=== PATIENT | male | born 1945 | race Caucasian/White ===

== ENCOUNTER 2018-07-30 10:27 | Emergency (ER) | payer MEDICARE, MEDICAID, SELFPAY ==
[2018-07-30] VITALS (28 sets, daily range): BP systolic 134–208; BP diastolic 81–114; PULSE 56–78; RESP 10–26; TEMP 36.6–36.8; O2SAT 94–99
--- NOTE | 2018-07-30 10:41 | DI.RAD_ITS ---
SYMPTOM/DIAGNOSIS: CHEST PAIN PA AND LATERAL CHEST: The heart is not enlarged. The lungs are grossly clear. No pleural effusion is seen. Rounded sclerotic lesion in humeral head appears to have been present on previous chest film of 01/2009. CONCLUSION: No evidence of acute disease.
--- NOTE | 2018-07-30 11:28 | NUR.NOTE ---
1115--took own morning meds per Brenda ABBOTT.Nursing Note:
[2018-07-30 11:39] LABS: Abs Immature Grans 0.02 k/cumm (0.0-0.09); Absolute Basophil Count 0.02 k/cumm (0.0-0.2); Absolute Eosinophil Count 0.04 k/cumm (0.0-0.7); Absolute Lymphocyte Count 0.96 k/cumm (1.2-3.4); Absolute Monocyte Count 0.58 k/cumm (0.11-0.7); Absolute Neutrophil Count 6.94 k/cumm (1.2-6.7); Basophils % 0.2; Eosinophils % 0.5; HCT 47.1 % (40.0-50.0); HGB 16.2 g/dL (13.5-17.5); Immature Grans % 0.2; Lymphocytes % 11.2; Mean Corp. HGB Concentration 34.4 g/dL (32.0-36.0); Mean Corpuscular Hemoglobin 31.6 pg (27.0-33.0); Mean Platelet Volume 10.2 fL (8.0-11.0); Monocytes % 6.8; Neutrophils % 81.1; Platelet Count 203 x1000/uL (130-400); RBC 5.12 m/cumm (4.50-6.00); RBC Distribution Width 13.8 % (11.8-14.1); White Blood Cell Count 8.56 k/cumm (4.4-10.8)
[2018-07-30 11:56] LABS: ALT 60 U/L (12-78); AST 25 U/L (15-37); Alkaline Phosphatase 107 U/L (46-116); Anion Gap 11.2 mmol/L (3-11); BUN 14 mg/dL (7-18); Bilirubin, Total 0.9 mg/dL (0.2-1.0); CO2 26.8 mmol/L (21.0-32.0); CREATININE 0.79 mg/dL (0.70-1.30); Calcium 9.7 mg/dL (8.5-10.1); Chloride 100 mmol/L (98-107); Glucose 73 mg/dL (70-100); Magnesium 1.5 mg/dL (1.8-2.4); NT-proBNP 2867 pg/mL; Sodium 138 mmol/L (136-145); Total Protein 8.2 g/dL (6.4-8.2)
[2018-07-30 11:59] LABS: Troponin I < 0.02 ng/mL (0.00-0.06)
[2018-07-30 12:05] LABS: D-Dimer 428 ng/mlFEU (<500)
[2018-07-30] MEDS: Magnesium Oxide 400 MG TAB PO (12:37)
--- NOTE | 2018-07-30 13:05 | DI.VRAD_ITS ---
EXAM: XR Chest, 2 Views EXAM DATE/TIME: 07/30/2018 10:42 AM CLINICAL HISTORY: 72 years old, male; Signs and symptoms; Other: Chest pain TECHNIQUE: Imaging protocol: XR of the chest, 2 views. COMPARISON: No relevant prior studies available. FINDINGS: Lungs: Lungs appear hyperexpanded. No focal consolidation. Pleural space: No visible pleural effusion. No pneumothorax. Heart/Mediastinum: No significant cardiomegaly. Vasculature: The aorta is unfolded. Bones/joints: Degenerative changes are present in the spine. 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 There may be a rounded sclerotic area in the proximal right humerus. IMPRESSION: No evidence of acute pulmonary finding or consolidation. Pulmonary hyperexpansion may indicate COPD. Dictated and Authenticated by: Narda Mota MD. Ordering:RM Frankel MD
[2018-07-30 14:21] LABS: Bilirubin Negative (Negative); Blood Trace-lysed (Negative); Clarity Clear; Glucose Negative (Negative); Ketones Negative (Negative); Leukocyte Esterase Negative (Negative); Nitrite Negative (Negative); Urobilinogen 0.2 EU/dL (Up TO 0.2)
[2018-07-30 14:32] LABS: Bacteria Negative HPF (Negative); C & S Indicated? No; Casts Negative LPF (Negative); Crystals Negative HPF (Negative); Epithelial Cells Rare HPF (Negative); Mucus Negative (Negative); RBC 0-2 (0-2); WBC Negative HPF (0-5)
[2018-07-30 15:11] LABS: Troponin I < 0.02 ng/mL (0.00-0.06)
--- NOTE | 2018-07-30 16:02 | ED.GENADUL_ITS ---
Discharge Plan Disposition Patient Disposition: HOME Condition: Improving Discharge Details Chief Complaint: Chest Pain Clinical Impression: Essential hypertension, Chest pain Primary Care Provider: Catalina Baptiste ED Provider: Jostin More Home Meds and New Rx's Prescriptions: Continued nitroglycerin 0.4 mg tablet, sublingual 0.4 mg Sublingual as directed PRN (Reason: chest pain) Qty: 25 RF: 0 Airborne (ascorbate sodium) 333-1.7 mg tablet,chewable 1 mg PO DAILY RF: 0 Imodium Multi-Symptom Relief 2-125 mg tablet 1 tab PO Q3H PRNRF: 0 bupropion HCl 300 mg tablet extended release 24 hr 300 mg PO DAILY Qty: 30 RF: 6 Lantus Solostar U-100 Insulin 100 unit/mL (3 mL) insulin pen 50 unit subcut DAILY Qty: 3 RF: 11 metoprolol succinate 50 mg tablet extended release 24 hr 50 mg PO DAILY Qty: 30 RF: 12 metoprolol succinate 25 mg tablet extended release 24 hr 25 mg PO DAILY MDD 75mg Qty: 30 RF: 11 OneTouch Ultra Test 1 EACH strip 1 ea Miscellaneous DAILY Qty: 100 RF: 11 lancets [OneTouch Delica Lancets] 1 EACH misc 1 ea Miscellaneous DAILY Qty: 100 RF: 11 pen needle, diabetic [Mini Ultra-Thin II] 31 gauge x 3/16 needle 1 ea Miscellaneous DAILY Qty: 1 RF: 11 cetirizine 10 mg tablet 10 mg PO DAILY Qty: 30 RF: 6 amlodipine 2.5 mg tablet 2.5 mg PO DAILY Qty: 30 RF: 12 aspirin 325 mg tablet 325 mg PO DAILY Qty: 30 RF: 12 atorvastatin 80 mg tablet 80 mg PO DAILY Qty: 30 RF: 11 metformin 500 mg tablet 1,000 mg PO BID Qty: 120 RF: 12 Discharge Instructions Instructions: Chest Pain (ED) Additional Instructions: Return immediately to the emergency department for any new or worsening symptoms, return of your chest pain and discomfort, any neurological symptoms, or any further concerns. Otherwise continue to take your daily medication as prescribed and follow-up with your primary care provider for reassessment. Referrals: Catalina Baptiste DO [Primary Care Provider] - 1 week Discharge Data Discharge Date/Time-TO BE ENTERED AT DEPARTURE: 07/30/18 16:14 Medical Decision Making Patient presenting to the emergency department for chief complaint of chest pain. Patient states that this started at 3 AM and he took 2 nitro at that time. Patient states he only now has chest pressure, dyspnea, and some feelings of being off balance. He does state new diagnosis of atrial fibrillation by [facility] care provider which those records were reviewed. Patient is only on aspirin for blood thinner. Physical exam shows irregular heart rate otherwise no murmurs rubs or clicks, clear lung sounds, normal neurological exam with negative Belle-Hallpike and hints exam. Plan to check labs and EKG along with chest x-ray. Patient was refusing any IV access and stated he was okay with blood draw but he was adamantly opposed to having IV started in the emergency department. Did inform patient that given A. fib and complaint of shortness of breath chest pain that I could perform a d-dimer but if elevated I would need to do a CTA of the chest. Patient states that he wants to discuss this once we get the initial lab work but wants to be conservative in any management. Patient is hypertensive but has not taken his morning medications so morning meds were given. Fingerstick glucose was 68 and patient states that he has not had breakfast so he was given food. Initial EKG reviewed with Dr. Leticia Calhoun and shows rate of 73, atrial fibrillation, T wave inversion is noted but has been seen on previous EKGs. There is ST abnormality in V4 V5 and V6 that is nondiagnostic but no signs of acute ST elevated [place]. Review of initial labs showed negative troponin, within acceptable limits of d- dimer, nondiagnostic CBC, CMP showing magnesium of 1.5 which was orally repleted and elevated BNP but patient has history of CHF no CHF symptoms. Chest x-ray was negative for any acute findings. Patient was agreeable to 3-hour troponin but again refused any IV access and states that his symptoms are better and improving. 3-hour troponin was reviewed and also negative and EKG performed and shows atrial fibrillation with rate of 65, continued T wave inversion in aVR aVL but ST abnormality that was previously seen in V4 V5 V6 is no longer present. Given patient's cardiac history of NH with stents, age, complaint of chest pain, and new diagnosis of atrial fib. Did discuss with patient admission to the hospital for further observation and possible stress testing and echo. Patient after long discussion stated he did not want to stay in the hospital and even if he had a stroke or heart attack he did not want anything done to treat his symptoms. Patient is DNR/DNI and this discussion of the patient seems similar to what primary care provider had with placing patient on blood thinners for his atrial fibrillation. Close return precautions were discussed and patient placed upon care management list for arrangement of follow-up appointment. Of notation is medical staff coordinator informed me that patient was urinating frequently and urinalysis was performed and shows elevated proteins and trace blood but otherwise nondiagnostic. medical staff coordinator did bladder scan and showed significant retention of fluid but patient refused catheter. Patient was encouraged to return for any inability to pee, abdominal pain, or further concerns otherwise to follow-up with primary care and inform them of his frequent urinations. With reassessment prior to discharge patient again stated that his chest pain symptoms had fully resolved and that he again wanted to go home. I feel that this is reasonable given that patient wants minimum interventions for any medical problems anyway but he was informed that he may always return for further treatment or evaluation as needed. After discussion of diagnosis and plan of care patient has no further needs, questions, or concerns and states clear understanding to return to the emergency department for any worsening symptoms. HPI General Mode of arrival: ambulatory . Date/Time Provider Initiated Documentation: 07/30/18 10:38 . Limitations to Documentation: no limitations . Information obtained by: patient, RN notes reviewed and old records reviewed . History of Present Illness 72 year old M presents to the emergency department with the chief complaint of chest pain, shortness of breath, dizzy, described as moderate and similar to prior episodes, with intensity rated at 5. Quality is described as other (pressure), and is localized to the chest. Patient reports no radiation. Patient started experiencing this hour(s) (7) and it has been intermittent. No exacerbating factors reported . Patient notes no other symptoms.. Patient did receive the following treatments prior to arrival, other (2 nitro at 3 AM) Related Data Home Medications Medication Instructions Recorded Confirmed CerelinkTouch Ultra Test #100 strip 04/22/16 07/22/18 lancets [OneTouch Delica Lancets] #100 ea 02/16/17 07/22/18 nitroglycerin 0.4 mg sublingual 0.4 mg SUBLINGUAL as directed PRN 01/21/18 07/30/18 tablet #25 tab pen needle, diabetic 31 gauge x #1 box 05/17/18 07/22/1805/14 cetirizine 10 mg tablet 10 mg PO DAILY #30 tab-cap 05/19/18 07/30/18 amlodipine 2.5 mg tablet 2.5 mg PO DAILY #30 tab-cap 06/22/18 07/30/18 aspirin 325 mg tablet 325 mg PO DAILY #30 tab 06/23/18 07/30/18 atorvastatin 80 mg tablet 80 mg PO DAILY #30 tab-cap 06/23/18 07/30/18 metformin 500 mg tablet 1,000 mg PO BID #120 tab 06/23/18 07/30/18 bupropion HCl XL 300 mg 24 hr 300 mg PO DAILY #30 tab-cap 07/22/18 07/30/18 tablet, extended release insulin glargine (U-100) 100 50 unit SUBCUT DAILY #3 pen 07/22/18 07/30/18 unit/mL (3 mL) subcutaneous pen loperamide-simethicone 2 mg-125 mg 1 tab PO Q3H PRN 07/22/18 07/30/18 tablet mv-min-vit C-ascorb 1 mg PO DAILY tab 07/22/18 07/30/18 Om-Flh-Qki-herb #124 333 mg-1.7 mg chewable tablet metoprolol succinate ER 25 mg 25 mg PO DAILY #30 tab MDD 75mg 07/23/18 07/30/18 tablet,extended release 24 hr metoprolol succinate ER 50 mg 50 mg PO DAILY #30 tab 07/23/18 07/30/18 tablet,extended release 24 hr Previous Rx's Medication Instructions Recorded lancets [OneTouch Delica Lancets] #100 ea 02/16/17 nitroglycerin 0.4 mg sublingual 0.4 mg SUBLINGUAL as directed PRN 01/21/18 tablet #25 tab pen needle, diabetic 31 gauge x #1 box 05/17/1805/14 cetirizine 10 mg tablet 10 mg PO DAILY #30 tab-cap 05/19/18 amlodipine 2.5 mg tablet 2.5 mg PO DAILY #30 tab-cap 06/22/18 aspirin 325 mg tablet 325 mg PO DAILY #30 tab 06/23/18 atorvastatin 80 mg tablet 80 mg PO DAILY #30 tab-cap 06/23/18 metformin 500 mg tablet 1,000 mg PO BID #120 tab 06/23/18 bupropion HCl XL 300 mg 24 hr 300 mg PO DAILY #30 tab-cap 07/22/18 tablet, extended release insulin glargine (U-100) 100 50 unit SUBCUT DAILY #3 pen 07/22/18 unit/mL (3 mL) subcutaneous pen metoprolol succinate ER 25 mg 25 mg PO DAILY #30 tab MDD 75mg 07/23/18 tablet,extended release 24 hr metoprolol succinate ER 50 mg 50 mg PO DAILY #30 tab 07/23/18 tablet,extended release 24 hr Allergies Allergy/AdvReac Type Severity Reaction Status Date / Time fluoxetine AdvReac Intermediate Intolerant Verified 07/30/18 10:57 amitriptyline AdvReac Mild Ineffective Verified 07/30/18 10:57 General Stated Complaint: Chest Pain [place]: 2 Review of Systems Constitutional Denies chills, Denies fever(s) and Denies malaise Cardiovascular Reports as per HPI, Reports chest pain, Denies chest pain with activity, Denies syncope, Denies rapid heart rate, Denies irregular heart rhythm, Denies claudication, Denies palpitations and Denies dyspnea Respiratory Denies cough, Denies hemoptysis and Denies dyspnea Gastrointestinal Denies abdominal pain, Denies nausea and Denies vomiting Neurologic Denies syncope Psychiatric Denies anxiety Endocrine Denies cold intolerance, Denies heat intolerance and Denies palpitations [facility] Medical History Atrial fibrillation (Chronic) Angina pectoris (03/11/09) Congestive heart failure (12/30/01) DNI (do not intubate) (03/28/08) DNR (do not resuscitate) (03/28/08) Diabetes mellitus (07/11/05) Disability examination (08/30/07) Hyperlipidemia (07/11/05) Hypertension (04/29/01) Hypomagnesemia (12/26/07) Myocardial infarct (04/29/01) Obesity Polycythemia (03/28/08) Surgical History Repair of inguinal hernia (12/24/09) Stent placement (04/29/01) Family History Mother Stroke Father Dementia Heart disease Brother Substance abuse Brother No problems noted. Other Diabetes Personal history of malignant neoplasm Social History Smoking/Tobacco Use Status: Never Alcohol Intake: never Drug use: Never Substance use type: does not use Do you feel safe at home: Yes Do you feel safe in your relationship?: Yes Exam Const General: cooperative, healthy appearing, comfortable, no acute distress, not diaphoretic and not ill appearing Nutritional Appearance: average body habitus Orientation: alert, awake and oriented x3 Limitations: mental status not altered Neck Neck: normal visual inspection, full ROM, trachea midline, supple and no anterior neck swelling Thyroid: thyroid normal Carotids: normal carotid upstroke and no bruits Chest Chest: normal inspection of the chest Resp Effort & Inspection: normal respiratory effort and able to speak in complete sentences Auscultation: clear to auscultation bilaterally Cardio Jugular venous pressure: no JVD Palpation: normal PMI Rate: regular rate Rhythm: abnormal rhythm irregularly irregular Heart Sounds: S1 normal, S2 normal, no click, no gallops, no murmurs and no rubs Bruits: no abdominal aortic bruits and no carotid bruits Pulses: radial pulses present bilaterally 2+ GI Inspection: normal to inspection Palpation: soft, no aortic enlargement, no pulsatile masses and nontender Auscultation: normal bowel sounds Skin General skin exam: no rashes or lesions noted Neuro General: alert, awake, oriented x3, gait normal, tone normal, moves all extr emities, normal light touch, pain and propioception, no meningeal signs, no focal motor deficits, CN's II-XI intact bilaterally, not confused, [place] Hallpike (Negative) and other (Negative hints exam) Cognition: normal cognition Speech: speech normal Motor: no pronator drift Course Vital Signs Respiratory Rate 26 H 07/30/18 10:44 Temperature 36.8 C 07/30/18 10:55 Pulse 64 07/30/18 14:32 Pulse 56 L 07/30/18 15:00 Respiratory Rate 17 07/30/18 15:00 Respiratory Effort Non-Labored 07/30/18 11:32 Respiratory Depth Normal 07/30/18 11:32 Respiratory Pattern Normal 07/30/18 11:32 Blood Pressure 170/81 H 07/30/18 14:32 Blood Pressure Mean 99 07/30/18 14:32 Blood Pressure Position Sitting 07/30/18 10:55 Pulse Oximetry 95 07/30/18 15:00 Oxygen Delivery Method Room Air 07/30/18 10:55 Oxygen Flow Rate 0 07/30/18 10:55 Pain Level 0 07/30/18 10:55 Lab/Test Results Lab/Test Results: Laboratory Tests Range/Units 07/30/18 07/30/18 07/30/18 11:30 11:30 11:30 WBC (4.4-10.8) k/cumm 8.56 RBC (4.50-6.00) m/cumm 5.12 Hgb (13.5-17.5) g/dL 16.2 Hct (40.0-50.0) % 47.1 MCV (80-95) fL 92.0 MCH (27.0-33.0) pg 31.6 MCHC (32.0-36.0) g/dL 34.4 RDW (11.8-14.1) % 13.8 Plt Count (130-400) x1000/uL 203 MPV (8.0-11.0) fL 10.2 Immature Gran % 0.2 Neutrophils % 81.1 Lymphocytes % 11.2 Monocytes % 6.8 Eosinophils % 0.5 Basophils % 0.2 Absolute Neutrophils (1.2-6.7) k/cumm 6.94 H Absolute Lymphocytes (1.2-3.4) k/cumm 0.96 L Absolute Monocytes (0.11-0.7) k/cumm 0.58 Absolute Eosinophils (0.0-0.7) k/cumm 0.04 Absolute Basophils (0.0-0.2) k/cumm 0.02 D-Dimer (<500) ng/mlFEU 428 Sodium (136-145) mmol/L 138 Potassium (3.5-5.1) mmol/L 4.0 Chloride (98-107) mmol/L 100 Carbon Dioxide (21.0-32.0) mmol/L 26.8 Anion Gap (3-11) mmol/L 11.2 H BUN (7-18) mg/dL 14 Creatinine (0.70-1.30) mg/dL 0.79 Estimated GFR/1.73 m2 (mL/min/1.73m2) >= 60.00 Glucose (70-100) mg/dL 73 Calcium (8.5-10.1) mg/dL 9.7 Magnesium (1.8-2.4) mg/dL 1.5 L Total Bilirubin (0.2-1.0) mg/dL 0.9 AST (15-37) U/L 25 ALT (12-78) U/L 60 Alkaline Phosphatase (46-116) U/L 107 Troponin I (0.00-0.06) ng/mL < 0.02 NT-Pro-B Natriuret Pep ( - 299) pg/mL 2867 H Total Protein (6.4-8.2) g/dL 8.2 Albumin (3.4-5.0) g/dL 4.0 Urine Color (Yellow) Urine Clarity Urine pH (5-8) Ur Specific [place] (1.005-1.025) Urine Protein (Negative) mg/dL Urine Ketones (Negative) mg/dL Urine Blood (Negative) Urine Nitrite (Negative) Urine Bilirubin (Negative) Urine Urobilinogen (Up TO 0.2) EU/dL Ur Leukocyte Esterase (Negative) Urine RBC (0-2) Urine WBC (0-5) HPF Ur Epithelial Cells (Negative) HPF Urine Crystals (Negative) HPF Urine Bacteria (Negative) HPF Urine Casts (Negative) LPF Urine Mucus (Negative) Ur Culture Indicated? Urine Glucose (Negative) mg/dL Range/Units 07/30/18 07/30/18 14:15 14:45 WBC (4.4-10.8) k/cumm RBC (4.50-6.00) m/cumm Hgb (13.5-17.5) g/dL Hct (40.0-50.0) % MCV (80-95) fL MCH (27.0-33.0) pg MCHC (32.0-36.0) g/dL RDW (11.8-14.1) % Plt Count (130-400) x1000/uL MPV (8.0-11.0) fL Immature Gran % Neutrophils % Lymphocytes % Monocytes % Eosinophils % Basophils % Absolute Neutrophils (1.2-6.7) k/cumm Absolute Lymphocytes (1.2-3.4) k/cumm Absolute Monocytes (0.11-0.7) k/cumm Absolute Eosinophils (0.0-0.7) k/cumm Absolute Basophils (0.0-0.2) k/cumm D-Dimer (<500) ng/mlFEU Sodium (136-145) mmol/L Potassium (3.5-5.1) mmol/L Chloride (98-107) mmol/L Carbon Dioxide (21.0-32.0) mmol/L Anion Gap (3-11) mmol/L BUN (7-18) mg/dL Creatinine (0.70-1.30) mg/dL Estimated GFR/1.73 m2 (mL/min/1.73m2) Glucose (70-100) mg/dL Calcium (8.5-10.1) mg/dL Magnesium (1.8-2.4) mg/dL Total Bilirubin (0.2-1.0) mg/dL AST (15-37) U/L ALT (12-78) U/L Alkaline Phosphatase (46-116) U/L Troponin I (0.00-0.06) ng/mL < 0.02 NT-Pro-B Natriuret Pep ( - 299) pg/mL Total Protein (6.4-8.2) g/dL Albumin (3.4-5.0) g/dL Urine Color (Yellow) Yellow Urine Clarity Clear Urine pH (5-8) 5.0 Ur Specific [place] (1.005-1.025) 1.010 Urine Protein (Negative) mg/dL 100 H Urine Ketones (Negative) mg/dL Negative Urine Blood (Negative) Trace-lysed H Urine Nitrite (Negative) Negative Urine Bilirubin (Negative) Negative Urine Urobilinogen (Up TO 0.2) EU/dL 0.2 Ur Leukocyte Esterase (Negative) Negative Urine RBC (0-2) 0-2 Urine WBC (0-5) HPF Negative Ur Epithelial Cells (Negative) HPF Rare Urine Crystals (Negative) HPF Negative Urine Bacteria (Negative) HPF Negative Urine Casts (Negative) LPF Negative Urine Mucus (Negative) Negative Ur Culture Indicated? No Urine Glucose (Negative) mg/dL Negative
--- NOTE | 2018-07-30 16:20 | NUR.NOTE ---
Nursing Note: Voiding in small amts---I don't want a catheter unless I can't go at all--states will come back if very painful /unable to pass any urine.
--- NOTE | 2018-08-02 09:05 | PDOC.ERCMPRO ---
Care Management Progress Note 08/02-Tereso [employer]ESSIONAL requested assistance with a PCP ([facility]) f/u within one week for chest pain. Referral faxed to [facility] this am.
--- NOTE | 2018-08-02 09:10 | CMPROGNOTE_ITS ---
Care Management Progress Note 08/02-Tereso PLUCK TRIMMER requested assistance with a PCP ([facility]) f/u within one week for chest pain. Referral faxed to [facility] this am.
== END 2018-07-30 16:14 | disposition home or self-care (01) ==
PROVIDERS: Emergency Provider Nurse Practitioner Family; PCP Student in an Organized Health Care Education/Training Program
DX: R07.9 Chest pain, unspecified (principal); I10 Essential (primary) hypertension; I48.91 Unspecified atrial fibrillation; E11.9 Type 2 diabetes mellitus without complications; Z79.4 Long term (current) use of insulin
CPT/HCPCS: 36415; 80053; 93005; 96372; 99285; 71046; 81003; 81015; 83735; 83880; 84484; 85025; 85379; 93010

== ENCOUNTER 2018-07-31 08:13 | Emergency (ER) | payer MEDICARE, MEDICAID, SELFPAY ==
[2018-07-31 08:21] VITALS: BP 153/84; PULSE 87; RESP 16; TEMP 37.1; O2SAT 96
--- NOTE | 2018-07-31 08:45 | W.ED.GENAD ---
Discharge Plan Disposition Patient Disposition: HOME Condition: Stable Discharge Details Chief Complaint: Urinary Clinical Impression: Acute urinary retention Primary Care Provider: Catalina Baptiste ED Provider: Jostin More Home Meds and New Rx's Prescriptions: Continued nitroglycerin 0.4 mg tablet, sublingual 0.4 mg Sublingual as directed PRN (Reason: chest pain) Qty: 25 RF: 0 Airborne (ascorbate sodium) 333-1.7 mg tablet,chewable 1 mg PO DAILY RF: 0 Imodium Multi-Symptom Relief 2-125 mg tablet 1 tab PO Q3H PRNRF: 0 bupropion HCl 300 mg tablet extended release 24 hr 300 mg PO DAILY Qty: 30 RF: 6 Lantus Solostar U-100 Insulin 100 unit/mL (3 mL) insulin pen 50 unit subcut DAILY Qty: 3 RF: 11 metoprolol succinate 50 mg tablet extended release 24 hr 50 mg PO DAILY Qty: 30 RF: 12 metoprolol succinate 25 mg tablet extended release 24 hr 25 mg PO DAILY MDD 75mg Qty: 30 RF: 11 OneTouch Ultra Test 1 EACH strip 1 ea Miscellaneous DAILY Qty: 100 RF: 11 lancets [OneTouch Delica Lancets] 1 EACH misc 1 ea Miscellaneous DAILY Qty: 100 RF: 11 pen needle, diabetic [Mini Ultra-Thin II] 31 gauge x 3/16 needle 1 ea Miscellaneous DAILY Qty: 1 RF: 11 cetirizine 10 mg tablet 10 mg PO DAILY Qty: 30 RF: 6 amlodipine 2.5 mg tablet 2.5 mg PO DAILY Qty: 30 RF: 12 aspirin 325 mg tablet 325 mg PO DAILY Qty: 30 RF: 12 atorvastatin 80 mg tablet 80 mg PO DAILY Qty: 30 RF: 11 metformin 500 mg tablet 1,000 mg PO BID Qty: 120 RF: 12 Discharge Instructions Instructions: Urinary Retention in Men (ED), Parr Catheter Placement and Care (ED), Urinary Leg Bag (GEN) Additional Instructions: Return to the emergency department for any fever chills, new or worsening symptoms. Otherwise home health will meet you this morning at your home to go over home care and assist with catheter. You should call Dr. Raya's office tomorrow for arrangement of urology appointment. Referrals: Brian Raya MD [ [facility] STAFF PHYSICIAN] - (Call the office tomorrow for arrangement of follow-up and catheter removal) Discharge Data Discharge Date/Time-TO BE ENTERED AT DEPARTURE: 07/31/18 11:20 Medical Decision Making Patient presenting the emergency department for chief complaint of urinary frequency and bladder pain. Patient was seen in the emergency department yesterday and noted to have 800 mL's on bladder scan but refused Parr catheter and admission at that time. Patient was having urinary frequency during emergency department visit but wanted to go home. Patient states that this continued with even less urine output throughout the night and then started having some bladder pain and spasms . Patient denies any fever chills, flank pain, nausea vomiting. Physical exam shows no CVA tenderness, suprapubic pain and discomfort otherwise unremarkable exam. After lengthy and thorough discussion with patient he agreed to bladder scanning and Parr catheter being placed due to over thousand mL's located in the bladder. Parr catheter drained almost 1100 mL's of clear urine which were sent for urinalysis and showed no signs of urinary tract infection. Patient extremely hesitant to going home with Parr catheter but after thorough and lengthy discussion as well as involving care management to ensure home health services would be available to help patient patient was discharged home with Parr bag. Patient to follow-up with urology for reassessment and removal of catheter and any further treatment as needed. Return precautions were discussed HPI General Mode of arrival: ambulatory. Date/Time Provider Initiated Documentation: 07/31/18 08:32. Limitations to Documentation: no limitations. Information obtained by: patient and RN notes reviewed. History of Present Illness 72 year old M presents to the emergency department with the chief complaint of Urinary frequency, described as moderate, with intensity rated at 4. Quality is described as other (Bladder pressure), Patient started experiencing this day(s) (1) and it has been constant. No relieving factors improve symptom(s), Patient notes no other symptoms.. Patient did receive the following treatments prior to arrival, none Related Data Home Medications Medication Instructions Recorded Confirmed SendRRTouch Ultra Test #100 strip 04/22/16 07/22/18 lancets [OneTouch Delica Lancets] #100 ea 02/16/17 07/22/18 nitroglycerin 0.4 mg sublingual 0.4 mg SUBLINGUAL as directed PRN 01/21/18 07/31/18 tablet #25 tab pen needle, diabetic 31 gauge x #1 box 05/17/18 07/22/1805/14 cetirizine 10 mg tablet 10 mg PO DAILY #30 tab-cap 05/19/18 07/31/18 amlodipine 2.5 mg tablet 2.5 mg PO DAILY #30 tab-cap 06/22/18 07/31/18 aspirin 325 mg tablet 325 mg PO DAILY #30 tab 06/23/18 07/31/18 atorvastatin 80 mg tablet 80 mg PO DAILY #30 tab-cap 06/23/18 07/31/18 metformin 500 mg tablet 1,000 mg PO BID #120 tab 06/23/18 07/31/18 bupropion HCl XL 300 mg 24 hr 300 mg PO DAILY #30 tab-cap 07/22/18 07/31/18 tablet, extended release insulin glargine (U-100) 100 50 unit SUBCUT DAILY #3 pen 07/22/18 07/31/18 unit/mL (3 mL) subcutaneous pen loperamide-simethicone 2 mg-125 mg 1 tab PO Q3H PRN 07/22/18 07/31/18 tablet mv-min-vit C-ascorb 1 mg PO DAILY tab 07/22/18 07/31/18 Xl-Ebm-Hxy-herb #124 333 mg-1.7 mg chewable tablet metoprolol succinate ER 25 mg 25 mg PO DAILY #30 tab MDD 75mg 07/23/18 07/31/18 tablet,extended release 24 hr metoprolol succinate ER 50 mg 50 mg PO DAILY #30 tab 07/23/18 07/31/18 tablet,extended release 24 hr Previous Rx's Medication Instructions Recorded lancets [OneTouch Delica Lancets] #100 ea 02/16/17 nitroglycerin 0.4 mg sublingual 0.4 mg SUBLINGUAL as directed PRN 01/21/18 tablet #25 tab pen needle, diabetic 31 gauge x #1 box 05/17/1805/14 cetirizine 10 mg tablet 10 mg PO DAILY #30 tab-cap 05/19/18 amlodipine 2.5 mg tablet 2.5 mg PO DAILY #30 tab-cap 06/22/18 aspirin 325 mg tablet 325 mg PO DAILY #30 tab 06/23/18 atorvastatin 80 mg tablet 80 mg PO DAILY #30 tab-cap 06/23/18 metformin 500 mg tablet 1,000 mg PO BID #120 tab 06/23/18 bupropion HCl XL 300 mg 24 hr 300 mg PO DAILY #30 tab-cap 07/22/18 tablet, extended release insulin glargine (U-100) 100 50 unit SUBCUT DAILY #3 pen 07/22/18 unit/mL (3 mL) subcutaneous pen metoprolol succinate ER 25 mg 25 mg PO DAILY #30 tab MDD 75mg 07/23/18 tablet,extended release 24 hr metoprolol succinate ER 50 mg 50 mg PO DAILY #30 tab 07/23/18 tablet,extended release 24 hr Allergies Allergy/AdvReac Type Severity Reaction Status Date / Time fluoxetine AdvReac Intermediate Intolerant Verified 07/31/18 08:24 amitriptyline AdvReac Mild Ineffective Verified 07/31/18 08:24 General Stated Complaint: Urinary CARR[place]: 3 Review of Systems Constitutional Denies body ache(s), Denies chills, Denies fever(s), Denies malaise and Denies weakness Cardiovascular Denies chest pain Respiratory Reports system reviewed and no additional complaints, except as docu Gastrointestinal Denies abdominal pain, Denies nausea and Denies vomiting Genitourinary Reports as per HPI, Denies hematuria, Reports difficulty urinating, Reports dysuria, Reports urinary urgency and Reports other (Change in urine color) Neurologic Denies confusion and Denies weakness Psychiatric Denies confusion [facility] Social History Smoking/Tobacco Use Status: Never Alcohol Intake: never Drug use: Never Substance use type: does not use Do you feel safe at home: Yes Do you feel safe in your relationship?: Yes Exam Const General: cooperative and no acute distress Orientation: alert, awake and oriented x3 Resp Effort & Inspection: normal respiratory effort and able to speak in complete sentences Auscultation: clear to auscultation bilaterally Cardio Rate: regular rate Rhythm: regular rhythm Heart Sounds: S1 normal and S2 normal GI Palpation: tender suprapubicly Back/Spine/Pelvis Back: no CVA tenderness Neuro General: alert, awake and oriented x3 Extrem General: normal capillary refill Course Vital Signs Temperature 37.1 C 07/31/18 08:21 Pulse 87 07/31/18 08:21 Respiratory Rate 16 07/31/18 08:21 Blood Pressure 153/84 H 06/02/19 08:21 Pulse Oximetry 96 07/31/18 08:21 Temperature 37.1 C 07/31/18 08:21 Temperature Source Skin 07/31/18 08:21 Pulse 87 07/31/18 08:21 Respiratory Rate 16 07/31/18 08:21 Respiratory Effort Non-Labored 07/31/18 08:21 Blood Pressure 153/84 H 07/31/18 08:21 Blood Pressure Position Sitting 07/31/18 08:21 Pulse Oximetry 96 07/31/18 08:21 Oxygen Delivery Method Room Air 07/31/18 08:21 Oxygen Flow Rate 0 07/31/18 08:21 Pain Level 7 07/31/18 08:21
--- NOTE | 2018-07-31 08:48 | ED.GENADUL_ITS ---
Discharge Plan Disposition Patient Disposition: HOME Condition: Stable Discharge Details Chief Complaint: Urinary Clinical Impression: Acute urinary retention Primary Care Provider: Catalina Baptiste ED Provider: Jostin More Home Meds and New Rx's Prescriptions: Continued nitroglycerin 0.4 mg tablet, sublingual 0.4 mg Sublingual as directed PRN (Reason: chest pain) Qty: 25 RF: 0 Airborne (ascorbate sodium) 333-1.7 mg tablet,chewable 1 mg PO DAILY RF: 0 Imodium Multi-Symptom Relief 2-125 mg tablet 1 tab PO Q3H PRNRF: 0 bupropion HCl 300 mg tablet extended release 24 hr 300 mg PO DAILY Qty: 30 RF: 6 Lantus Solostar U-100 Insulin 100 unit/mL (3 mL) insulin pen 50 unit subcut DAILY Qty: 3 RF: 11 metoprolol succinate 50 mg tablet extended release 24 hr 50 mg PO DAILY Qty: 30 RF: 12 metoprolol succinate 25 mg tablet extended release 24 hr 25 mg PO DAILY MDD 75mg Qty: 30 RF: 11 OneTouch Ultra Test 1 EACH strip 1 ea Miscellaneous DAILY Qty: 100 RF: 11 lancets [OneTouch Delica Lancets] 1 EACH misc 1 ea Miscellaneous DAILY Qty: 100 RF: 11 pen needle, diabetic [Mini Ultra-Thin II] 31 gauge x 3/16 needle 1 ea Miscellaneous DAILY Qty: 1 RF: 11 cetirizine 10 mg tablet 10 mg PO DAILY Qty: 30 RF: 6 amlodipine 2.5 mg tablet 2.5 mg PO DAILY Qty: 30 RF: 12 aspirin 325 mg tablet 325 mg PO DAILY Qty: 30 RF: 12 atorvastatin 80 mg tablet 80 mg PO DAILY Qty: 30 RF: 11 metformin 500 mg tablet 1,000 mg PO BID Qty: 120 RF: 12 Discharge Instructions Instructions: Urinary Retention in Men (ED), Parr Catheter Placement and Care (ED), Urinary Leg Bag (GEN) Additional Instructions: Return to the emergency department for any fever chills, new or worsening symptoms. Otherwise home health will meet you this morning at your home to go over home care and assist with catheter. You should call Dr. Raya's office tomorrow for arrangement of urology appointment. Referrals: Brian Raya MD [ [facility] STAFF PHYSICIAN] - (Call the office tomorrow for arrangement of follow-up and catheter removal) Discharge Data Discharge Date/Time-TO BE ENTERED AT DEPARTURE: 07/31/18 11:20 Medical Decision Making Patient presenting the emergency department for chief complaint of urinary frequency and bladder pain. Patient was seen in the emergency department yesterday and noted to have 800 mL's on bladder scan but refused Parr catheter and admission at that time. Patient was having urinary frequency during emergency department visit but wanted to go home. Patient states that this continued with even less urine output throughout the night and then started having some bladder pain and spasms . Patient denies any fever chills, flank pain, nausea vomiting. Physical exam shows no CVA tenderness, suprapubic pain and discomfort otherwise unremarkable exam. After lengthy and thorough discussion with patient he agreed to bladder scanning and Parr catheter being placed due to over thousand mL's located in the bladder. Parr catheter drained almost 1100 mL's of clear urine which were sent for urinalysis and showed no signs of urinary tract infection. Patient extremely hesitant to going home with Parr catheter but after thorough and lengthy discussion as well as involving care management to ensure home health services would be available to help patient patient was discharged home with Parr bag. Patient to follow-up with urology for reassessment and removal of catheter and any further treatment as needed. Return precautions were discussed HPI General Mode of arrival: ambulatory . Date/Time Provider Initiated Documentation: 07/31/18 08:32 . Limitations to Documentation: no limitations . Information obtained by: patient and RN notes reviewed . History of Present Illness 72 year old M presents to the emergency department with the chief complaint of Urinary frequency, described as moderate, with intensity rated at 4. Quality is described as other (Bladder pressure), Patient started experiencing this day(s) (1) and it has been constant. No relieving factors improve symptom(s), Patient notes no other symptoms.. Patient did receive the following treatments prior to arrival, none Related Data Home Medications Medication Instructions Recorded Confirmed Cinema OneTouch Ultra Test #100 strip 04/22/16 07/22/18 lancets [OneTouch Delica Lancets] #100 ea 02/16/17 07/22/18 nitroglycerin 0.4 mg sublingual 0.4 mg SUBLINGUAL as directed PRN 01/21/18 07/31/18 tablet #25 tab pen needle, diabetic 31 gauge x #1 box 05/17/18 07/22/1805/14 cetirizine 10 mg tablet 10 mg PO DAILY #30 tab-cap 05/19/18 07/31/18 amlodipine 2.5 mg tablet 2.5 mg PO DAILY #30 tab-cap 06/22/18 07/31/18 aspirin 325 mg tablet 325 mg PO DAILY #30 tab 06/23/18 07/31/18 atorvastatin 80 mg tablet 80 mg PO DAILY #30 tab-cap 06/23/18 07/31/18 metformin 500 mg tablet 1,000 mg PO BID #120 tab 06/23/18 07/31/18 bupropion HCl XL 300 mg 24 hr 300 mg PO DAILY #30 tab-cap 07/22/18 07/31/18 tablet, extended release insulin glargine (U-100) 100 50 unit SUBCUT DAILY #3 pen 07/22/18 07/31/18 unit/mL (3 mL) subcutaneous pen loperamide-simethicone 2 mg-125 mg 1 tab PO Q3H PRN 07/22/18 07/31/18 tablet mv-min-vit C-ascorb 1 mg PO DAILY tab 07/22/18 07/31/18 El-Vps-Sfy-herb #124 333 mg-1.7 mg chewable tablet metoprolol succinate ER 25 mg 25 mg PO DAILY #30 tab MDD 75mg 07/23/18 07/31/18 tablet,extended release 24 hr metoprolol succinate ER 50 mg 50 mg PO DAILY #30 tab 07/23/18 07/31/18 tablet,extended release 24 hr Previous Rx's Medication Instructions Recorded lancets [OneTouch Delica Lancets] #100 ea 02/16/17 nitroglycerin 0.4 mg sublingual 0.4 mg SUBLINGUAL as directed PRN 01/21/18 tablet #25 tab pen needle, diabetic 31 gauge x #1 box 05/17/1805/14 cetirizine 10 mg tablet 10 mg PO DAILY #30 tab-cap 05/19/18 amlodipine 2.5 mg tablet 2.5 mg PO DAILY #30 tab-cap 06/22/18 aspirin 325 mg tablet 325 mg PO DAILY #30 tab 06/23/18 atorvastatin 80 mg tablet 80 mg PO DAILY #30 tab-cap 06/23/18 metformin 500 mg tablet 1,000 mg PO BID #120 tab 06/23/18 bupropion HCl XL 300 mg 24 hr 300 mg PO DAILY #30 tab-cap 07/22/18 tablet, extended release insulin glargine (U-100) 100 50 unit SUBCUT DAILY #3 pen 07/22/18 unit/mL (3 mL) subcutaneous pen metoprolol succinate ER 25 mg 25 mg PO DAILY #30 tab MDD 75mg 07/23/18 tablet,extended release 24 hr metoprolol succinate ER 50 mg 50 mg PO DAILY #30 tab 07/23/18 tablet,extended release 24 hr Allergies Allergy/AdvReac Type Severity Reaction Status Date / Time fluoxetine AdvReac Intermediate Intolerant Verified 07/31/18 08:24 amitriptyline AdvReac Mild Ineffective Verified 07/31/18 08:24 General Stated Complaint: Urinary [place]: 3 Review of Systems Constitutional Denies body ache(s), Denies chills, Denies fever(s), Denies malaise and Denies weakness Cardiovascular Denies chest pain Respiratory Reports system reviewed and no additional complaints, except as docu Gastrointestinal Denies abdominal pain, Denies nausea and Denies vomiting Genitourinary Reports as per HPI, Denies hematuria, Reports difficulty urinating, Reports dysuria, Reports urinary urgency and Reports other (Change in urine color) Neurologic Denies confusion and Denies weakness Psychiatric [facility]ies confusion [facility] Social History Smoking/Tobacco Use Status: Never Alcohol Intake: never Drug use: Never Substance use type: does not use Do you feel safe at home: Yes Do you feel safe in your relationship?: Yes Exam Const General: cooperative and no acute distress Orientation: alert, awake and oriented x3 Resp Effort & Inspection: normal respiratory effort and able to speak in complete sentences Auscultation: clear to auscultation bilaterally Cardio Rate: regular rate Rhythm: regular rhythm Heart Sounds: S1 normal and S2 normal GI Palpation: tender suprapubicly Back/Spine/Pelvis Back: no CVA tenderness Neuro General: alert, awake and oriented x3 Extrem General: normal capillary refill Course Vital Signs Temperature 37.1 C 07/31/18 08:21 Pulse 87 07/31/18 08:21 Respiratory Rate 16 07/31/18 08:21 Blood Pressure 153/84 H 06/02/19 08:21 Pulse Oximetry 96 07/31/18 08:21 Temperature 37.1 C 07/31/18 08:21 Temperature Source Skin 07/31/18 08:21 Pulse 87 07/31/18 08:21 Respiratory Rate 16 07/31/18 08:21 Respiratory Effort Non-Labored 07/31/18 08:21 Blood Pressure 153/84 H 07/31/18 08:21 Blood Pressure Position Sitting 07/31/18 08:21 Pulse Oximetry 96 07/31/18 08:21 Oxygen Delivery Method Room Air 07/31/18 08:21 Oxygen Flow Rate 0 07/31/18 08:21 Pain Level 7 07/31/18 08:21
[2018-07-31] MEDS: Lidocaine 2% Jelly 11 ML SYR UR (08:50)
[2018-07-31 09:11] LABS: Bilirubin Negative (Negative); Blood Moderate (Negative); Clarity Clear; Glucose Negative (Negative); Ketones Negative (Negative); Leukocyte Esterase Negative (Negative); Nitrite Negative (Negative); Urobilinogen 0.2 EU/dL (Up TO 0.2); pH 5.5 (5-8)
[2018-07-31 09:20] LABS: Bacteria Negative HPF (Negative); Crystals Negative HPF (Negative); Epithelial Cells Rare HPF (Negative); Mucus Moderate (Negative); RBC >50 (0-2); WBC Negative HPF (0-5)
[2018-07-31 09:21] LABS: C & S Indicated? No; Casts Negative LPF (Negative)
--- NOTE | 2018-07-31 10:54 | PDOC.ERCMPRO ---
Care Management Progress Note CM consult initiated by ED provider, Jostin due to Segun re-presenting to the ED for urinary retention. Per report, Segun does not want a catheter in place and is struggling with the idea of managing his new care needs. Jostin reported speaking with [facility] yesterday regarding these issues. He reports Segun does not want to discharge with catheter but does not have a good plan in place to manage at home. He reports Segun is anxious at baseline and does not want to attend to his care, resulting in his bladder becoming full and presenting to the ER for relief. Segun will begin HC RN, and follow up with Dr. Raya's office. CM spoke with Shikha at [facility] who reported receiving orders for Segun's care and that over the last few days [facility] has been attempting to open him to services. Shikha reported a RN was currently waiting to respond to Segun's home, and would do so when he returned there from the ED. CM notified Jostin and Narda, ED who reported she would coordinate transport for Segun to return home. Narda called again to report she would attempt [facility] transport as his natural supports were not responding to her attempts.
--- NOTE | 2018-07-31 12:13 | CMPROGNOTE_ITS ---
Care Management Progress Note CM consult initiated by ED provider, Jostin due to Segun re-presenting to the ED for urinary retention. Per report, Segun does not want a catheter in place and is struggling with the idea of managing his new care needs. Jostin reported speaking with [facility] yesterday regarding these issues. He reports Segun does not want to discharge with catheter but does not have a good plan in place to manage at home. He reports Segun is anxious at baseline and does not want to attend to his care, resulting in his bladder becoming full and presenting to the ER for relief. Segun will begin HC RN, and follow up with Dr. Raya's office. CM spoke with Shikha at [facility] who reported receiving orders for Segun's care and that over the last few days [facility] has been attempting to open him to services. Shikha reported a RN was currently waiting to respond to Segun's home, and would do so when he returned there from the ED. CM notified Jostin and Narda, ED who reported she would coordinate transport for Segun to return home. Narda called again to report she would attempt [facility] transport as his natural supports were not responding to her attempts.
[2018-07-31 18:20] VITALS: BP 147/77; PULSE 82; RESP 16; TEMP 37.1; O2SAT 96
--- NOTE | 2018-08-02 08:46 | CMPROGNOTE_ITS ---
Care Management Progress Note 08/02-Tereso [employer] OPERATOR requested assistance with an urology f/u for urinary retention/catheter placed. Referral faxed to urology this am.
--- NOTE | 2018-08-02 08:46 | PDOC.ERCMPRO ---
Care Management Progress Note 08/02-Tereso CAR SANDER requested assistance with an urology f/u for urinary retention/catheter placed. Referral faxed to urology this am.
== END 2018-07-31 11:20 | disposition home or self-care (01) ==
PROVIDERS: Emergency Provider Nurse Practitioner Family; PCP Student in an Organized Health Care Education/Training Program
DX: R33.9 Retention of urine, unspecified (principal)
CPT/HCPCS: 51702; 99284; 81003; 81015

== ENCOUNTER 2018-08-03 18:47 | Inpatient (IN) | payer MEDICARE, MEDICAID, SELFPAY ==
[2018-08-03 18:55] VITALS: BP 168/96; PULSE 70; RESP 16; TEMP 36.7; O2SAT 98
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
[2018-08-03 19:03] VITALS: RESP 16
--- NOTE | 2018-08-03 19:21 | DI.CT_ITS ---
SYMPTOM/DIAGNOSIS: MULTIPLE FALLS LAST COUPLE DAYS. CT BRAIN: Noncontrast examination was performed. Comparison is 05/04/17. There is cerebral atrophy consistent with the patient's age. There are areas of decreased attenuation in the white matter consistent with small vessel ischemic disease. There are areas of encephalomalacia involving the left frontal lobe and the right parietal lobe consistent with old infarcts. No finding to suggest an acute intracranial hemorrhage, infarct, midline shift or mass effect. The ventricles are intact. The basilar cisterns are patent. There is a mucus retention cyst or polyp in the left maxillary sinus. The remaining visualized paranasal sinuses are clear. The mastoid air cells are well pneumatized. The calvarium is intact. There is again seen a 1.1 cm soft tissue slightly hyperdense nodule overlying the left frontal bone. This is unchanged compared to 05/04/17. Please correlate with physical examination. IMPRESSION: No acute intracranial process.
[2018-08-03 19:42] LABS: HCT 47.7 % (40.0-50.0); Mean Corp. HGB Concentration 33.5 g/dL (32.0-36.0); Mean Corpuscular Hemoglobin 31.3 pg (27.0-33.0); Mean Corpuscular Volume 93.3 fL (80-95); Mean Platelet Volume 10.1 fL (8.0-11.0); Platelet Count 217 x1000/uL (130-400); RBC 5.11 m/cumm (4.50-6.00); RBC Distribution Width 13.9 % (11.8-14.1)
[2018-08-03 19:54] LABS: Anion Gap 7.9 mmol/L (3-11); BUN 17 mg/dL (7-18); CO2 27.1 mmol/L (21.0-32.0); CREATININE 1.03 mg/dL (0.70-1.30); Calcium 9.3 mg/dL (8.5-10.1); Chloride 100 mmol/L (98-107); Glucose 206 mg/dL (70-100); Sodium 135 mmol/L (136-145)
--- NOTE | 2018-08-03 20:31 | DI.VRAD_ITS ---
EXAM: CT Head Without Contrast EXAM DATE/TIME: 08/03/2018 7:22 PM CLINICAL HISTORY: 72 years old, male; Injury or trauma; Initial encounter; Injury details: Multiple falls last couple of days TECHNIQUE: Imaging protocol: Axial computed tomography images of the head without contrast. Coronal and sagittal reformatted images were created and reviewed. Radiation optimization: All CT scans at this facility use at least one of these dose optimization techniques: automated exposure control; mA and/or kV adjustment per patient size (includes targeted exams where dose is matched to clinical indication); or iterative reconstruction. COMPARISON: CT HEAD WITHOUT CONTRAST 05/04/2017 10:20 AM FINDINGS: Brain: Moderate generalized atrophy with mild periventricular white matter ischemic changes consistent with the patient's advanced age. No extra-axial fluid collections. No evidence of acute intracranial hemorrhage. No evidence of acute or subacute intracranial ischemia/infarct. 3 cm on chronic encephalomalacia in the posterior right MCA territory consistent with chronic infarct. There is also small chronic infarct in the right frontal periventricular white matter measuring 17 mm. No intracranial mass lesions. Midline shift: No midline shift or herniation. Ventricles: Ventricles normal. Bones/joints: The calvarium and visualized facial bones are intact. Sinuses: Mucous retention cyst or polyp formation in the left maxillary sinus. No sinus fluid levels. Mastoid air cells: Visualized mastoid air cells are clear. Orbits: Orbital contents demonstrate no evidence of acute abnormality. Soft tissues: Nonspecific 11 mm mildly hyperdense soft tissue nodule in the high left frontal scalp on series 2 image 45. Etiology is uncertain. Clinical correlation is recommended to exclude features of dermal malignancy. Vasculature: Mild atherosclerotic calcific plaque is identified in the visualized distal ICA segments . IMPRESSION: 1. No acute intracranial process. 2. 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 3. Atrophy and microvascular changes consistent with the patient's advanced age. 4. 11 mm nonspecific hyperdense soft tissue nodule in the high left frontal scalp, uncertain etiology. Clinical correlation recommended to exclude features of dermal malignancy. Dictated and Authenticated by: Ant Jordan MD. Ordering:JOSE L Hess MD
[2018-08-03 22:03] VITALS: BP 167/93; PULSE 64; RESP 17; TEMP 36.5; O2SAT 97
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
[2018-08-04 07:02] LABS: Hemoglobin A1C 6.8 % (4.5-6.2)
[2018-08-04 07:15] VITALS: BP 163/79; PULSE 65; RESP 16; TEMP 36.5; O2SAT 96
[2018-08-04] MEDS: Metoprolol CR 25 MG TABCR 75 MG PO (07:56)
[2018-08-04] MEDS: metFORMIN 500 MG TAB 1000 MG PO ×2 (07:56→17:18)
[2018-08-04] MEDS: Atorvastatin 40 MG TAB 80 MG PO (07:57)
[2018-08-04] MEDS: amLODIPine 2.5 MG TAB PO (07:57)
[2018-08-04] MEDS: Aspirin 325 MG TAB PO (07:57)
[2018-08-04] MEDS: buPROPion-XL 150 MG TABCR 300 MG PO (07:57)
[2018-08-04] MEDS: Cetirizine 10 MG TAB PO (07:58)
--- NOTE | 2018-08-04 09:29 | OT.INIE ---
Occupational Therapy Notes Inpatient Occupational Therapy Evaluation Date: 08/04/18 Referring Doctor:Kush Reyez MD OT Orders: Evaluate and treat for generalized weakness, frequent falls, diminished ADL performance Precautions: Fall, Standard PATIENT PROFILE/ADMITTING DIAGNOSIS: Pt is a 72 year old female who was admitted through the ER for generalized weakness, multiple falls, A-fib, chronic urinary retention and (R) sided encephalomalacia. Pt is admitted swing bed rehabilitation status. Past Medical History: Medical History Atrial fibrillation (Chronic) Angina pectoris (03/11/09) Congestive heart failure (12/30/01) DNI (do not intubate) (03/28/08) DNR (do not resuscitate) (03/28/08) Diabetes mellitus (07/11/05) Disability examination (08/30/07) Hyperlipidemia (07/11/05) Hypertension (04/29/01) Hypomagnesemia (12/26/07) Myocardial infarct (04/29/01) Obesity Polycythemia (03/28/08) Surgical History Repair of inguinal hernia (12/24/09) Stent placement (04/29/01) Social History/Home Situation: Pt reports that he lives in an apartment in a living situation where the residents in the building share a bathroom space and a kitchen space. He states that there is only one person who he feels is nice in his current living situation and that he plans to stay at [facility] until another living situation is found for him. Pt states that he had HH services at his apartment for 1 week for increased (I) in use of his rossi. He notes that he is totally (I) with all ADLs/IADLs at home for his baseline. Pt states I'm not going back home, I want a new place to live I know that there are more services and I have a TBI. Pt indicates that he showers rarely and brushes his teeth every once in a while. Equipment owned/DME: FWW, shower bench, grab bars SUBJECTIVE: Pt was lying in bed when OT arrived. He was agreeable to OT session. OBJECTIVE: General Observation: Pleasant and answers appropriately. Mental Status: A&Ox3 Pain: no c/o pain ROM: RUE AROM WFL L UE AROM WFL STRENGTH: RUE shoulder flexion 4-/5, elbow 4/5, wrist and digits 4-/5 LUE shoulder flexion 4-/5, elbow 4/5, wrist and digits 4/5 FUNCTIONAL MOBILITY/ADLS: Transfers Supine-sit (I) Sit-Stand CGA, FWW Stand-sit CGA, FWW Bed-Chair CGA, FWW EATING Sitting in chair pt was (I) with eating routine. Dressing- Sitting on side of bed, pt was (I) with donning (B) shoes and socks with ideal techniques. BALANCE: Static sitting Normal Dynamic Sitting Normal Static Standing Good Dynamic Standing Fair SPECIAL TESTS: Daily Activity Limitations Standardized Measure [facility] AM PAC ?6 clicks? Daily Activity Inpatient Short Form: Raw score: 22 Standardized score: 47.10 CMS score: 22.85% INFORMED CONSENT/EDUCATION: Pt instructed in purpose of OT Consult and plan of care. ASSESSMENT: Patient is a 72-year-old male referred to occupational therapy services with diagnosis of generalized weakness, multiple falls in the past week, chronic urinary retention and (R) sided encephalomalacia and A-Fib. Patient presents with clinical signs and symptoms consistent with dx, as demonstrated by the following impairment level findings: Decreased functional activity tolerance, decreased functional mobility, hx of TBI, decreased (I) in use of rossi and toileting routine. Impairments are contributing to the following functional limitations: Difficulty performing ADLs/IADLs in the standing position, decreased functional activity tolerance. AMPAC score 22, CMS 25.80% Patient is assessed as a Moderate 75053 complexity based on the following: History: See Above Examination: See Above Presentation: Evolving Decision Making: AMPAC score 22, CMS 25.80% GOALS Goals x1 week 1. Transfers (S),FWW 2. Dressing-Sitting in chair (I) UE/LE dressing 3. Bathing- Standing at sink (I) , FWW 4. Eating- (I) sitting in chair 5. Grooming- (I) standing at sink with FWW PLAN OF CARE/TREATMENT PLAN: 1x/day, 5 days/ week x 1week Initiate Occupational Therapy Services for bathing, dressing, grooming, toileting, eating, transfer training. DISCHARGE RECOMMENDATIONS-SNF TREATMENT TIME/MINUTES/CODES 74120, 25 minutes (08:05) Nayana Medley OTR/L [facility]
--- NOTE | 2018-08-04 09:33 | OTIE_ITS ---
Occupational Therapy Notes Inpatient Occupational Therapy Evaluation Date: 08/04/18 Referring Doctor:Kush Reyez MD OT Orders: Evaluate and treat for generalized weakness, frequent falls, diminished ADL performance Precautions: Fall, Standard PATIENT PROFILE/ADMITTING DIAGNOSIS: Pt is a 72 year old female who was admitted through the ER for generalized weakness, multiple falls, A-fib, chronic urinary retention and (R) sided encephalomalacia. Pt is admitted swing bed rehabilitation status. Past Medical History: Medical History Atrial fibrillation (Chronic) Angina pectoris (03/11/09) Congestive heart failure (12/30/01) DNI (do not intubate) (03/28/08) DNR (do not resuscitate) (03/28/08) Diabetes mellitus (07/11/05) Disability examination (08/30/07) Hyperlipidemia (07/11/05) Hypertension (04/29/01) Hypomagnesemia (12/26/07) Myocardial infarct (04/29/01) Obesity Polycythemia (03/28/08) Surgical History Repair of inguinal hernia (12/24/09) Stent placement (04/29/01) Social History/Home Situation: Pt reports that he lives in an apartment in a living situation where the residents in the building share a bathroom space and a kitchen space. He states that there is only one person who he feels is nice in his current living situation and that he plans to stay at [facility] until another living situation is found for him. Pt states that he had HH services at his apartment for 1 week for increased (I) in use of his rossi. He notes that he is totally (I) with all ADLs/IADLs at home for his baseline. Pt states I'm not going back home, I want a new place to live I know that there are more services and I have a TBI. Pt indicates that he showers rarely and brushes his teeth every once in a while. Equipment owned/DME: FWW, shower bench, grab bars SUBJECTIVE: Pt was lying in bed when OT arrived. He was agreeable to OT session. OBJECTIVE: General Observation: Pleasant and answers appropriately. Mental Status: A&Ox3 Pain: no c/o pain ROM: RUE AROM WFL L UE AROM WFL STRENGTH: RUE shoulder flexion 4-/5, elbow 4/5, wrist and digits 4-/5 LUE shoulder flexion 4-/5, elbow 4/5, wrist and digits 4/5 FUNCTIONAL MOBILITY/ADLS: Transfers Supine-sit (I) Sit-Stand CGA, FWW Stand-sit CGA, FWW Bed-Chair CGA, FWW EATING Sitting in chair pt was (I) with eating routine. Dressing- Sitting on side of bed, pt was (I) with donning (B) shoes and socks with ideal techniques. BALANCE: Static sitting Normal Dynamic Sitting Normal Static Standing Good Dynamic Standing Fair SPECIAL TESTS: Daily Activity Limitations Standardized Measure [facility] AM PAC ?6 clicks? Daily Activity Inpatient Short Form: Raw score: 22 Standardized score: 47.10 CMS score: 22.85% INFORMED CONSENT/EDUCATION: Pt instructed in purpose of OT Consult and plan of care. ASSESSMENT: Patient is a 72-year-old male referred to occupational therapy services with diagnosis of generalized weakness, multiple falls in the past week, chronic urinary retention and (R) sided encephalomalacia and A-Fib. Patient presents with clinical signs and symptoms consistent with dx, as demonstrated by the following impairment level findings: Decreased functional activity tolerance, decreased functional mobility, hx of TBI, decreased (I) in use of rossi and toileting routine. Impairments are contributing to the following functional limitations: Difficulty performing ADLs/IADLs in the standing position, decreased functional activity tolerance. AMPAC score 22, CMS 25.80% Patient is assessed as a Moderate 92702 complexity based on the following: History: See Above Examination: See Above Presentation: Evolving Decision Making: AMPAC score 22, CMS 25.80% GOALS Goals x1 week 1. Transfers (S),FWW 2. Dressing-Sitting in chair (I) UE/LE dressing 3. Bathing- Standing at sink (I) , FWW 4. Eating- (I) sitting in chair 5. Grooming- (I) standing at sink with FWW PLAN OF CARE/TREATMENT PLAN: 1x/day, 5 days/ week x 1week Initiate Occupational Therapy Services for bathing, dressing, grooming, toileting, eating, transfer training. DISCHARGE RECOMMENDATIONS-SNF TREATMENT TIME/MINUTES/CODES 86158, 25 minutes (08:05) Nayana Medley OTR/L [facility]
[2018-08-04] MEDS: Insulin Glargine 300 UNITS/3 ML PEN 50 UNITS SC (10:01)
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
[2018-08-04] MEDS: Insulin Aspart 300 UNITS/3 ML PEN SC ×2 (12:00→17:19)
[2018-08-04 16:19] VITALS: BP 159/90; PULSE 67; RESP 18; TEMP 36.6; O2SAT 96
--- NOTE | 2018-08-04 16:51 | UCONE_ITS ---
Date of service: 08/04/18 Time of Service: 16:50 History of Present Illness Narrative: Chief complaint: Urinary retention This is a 72-year-old gentleman who has a medical history significant for diabetes mellitus with peripheral neuropathy, traumatic brain injury, atrial fibrillation, congestive heart failure and previous myocardial infarctions. He is currently admitted for generalized weakness and diminished ability to perform activities of daily life. He will be [facility]. Shortly before this admission, he was seen in the emergency room with urinary retention. A Parr catheter was placed at that time. He was then referred to see me and has an upcoming appointment for next week. Since his admission, he has just been started on tamsulosin by the hospitalist team. He had not been on any type of urologic medications previously. He has not had any type of urologic surgery. He has no history of urinary tract infections or kidney stones. He is not having any pain from his catheter at this time. Review of Systems Constitutional Denies chills, Denies fever(s), Reports frequent falls and Reports weakness Cardiovascular Denies chest pain Respiratory Denies cough and Denies hemoptysis Gastrointestinal Denies constipation and Denies nausea Genitourinary Reports as per HPI Neurologic Reports frequent falls and Reports weakness [facility] Medical History Atrial fibrillation and flutter (Chronic) Atrial fibrillation (Chronic) Angina pectoris (03/11/09) Congestive heart failure (12/30/01) DNI (do not intubate) (03/28/08) DNR (do not resuscitate) (03/28/08) Diabetes mellitus (07/11/05) Disability examination (08/30/07) Hyperlipidemia (07/11/05) Hypertension (04/29/01) Hypomagnesemia (12/26/07) Myocardial infarct (04/29/01) Obesity Polycythemia (03/28/08) Surgical History Repair of inguinal hernia (12/24/09) Stent placement (04/29/01) Family History Mother Stroke Father Dementia Heart disease Brother Substance abuse Brother No problems noted. Other Diabetes Personal history of malignant neoplasm Social History (Reviewed 08/03/18 @ 23:06 by Kush Willett Smoking/Tobacco Use Status: Never Alcohol Intake: never Drug use: Never Substance use type: does not use Caregiver/Support person: Yes (Home Health) Communication Needs: None Do you feel safe at home: No Do you feel safe in your relationship?: Yes Exam Narrative Exam Narrative: He is in no current distress. He is sitting by his bedside. His vital signs are documented elsewhere in the chart. His Parr catheter is draining clear urine He is awake, alert and oriented. Results Last Vital Signs Temp 36.6 C 08/04/18 16:19 Pulse 67 08/04/18 16:19 Resp 18 08/04/18 16:19 BP 159/90 H 08/04/18 16:19 Pulse Ox 96 08/04/18 16:19 Labs : 08/03/18 19:35 08/03/18 19:35 Laboratory Results - last 24 hr 08/03/18 08/03/18 08/04/18 19:35 19:35 06:25 WBC 9.10 RBC 5.11 Hgb 16.0 Hct 47.7 MCV 93.3 MCH 31.3 MCHC 33.5 RDW 13.9 Plt Count 217 MPV 10.1 Sodium 135 L Potassium 4.0 Chloride 100 Carbon Dioxide 27.1 Anion Gap 7.9 BUN 17 Creatinine 1.03 Estimated GFR/1.73 m2 >= 60.00 Glucose 206 H Hemoglobin A1c 6.8 H Calcium 9.3 Assessment and Plan (1) Urinary retention: Current visit: Yes Status: Acute He has a number of risk factors for an inability to empty his bladder. He certainly may have an obstructive process from his bladder outlet, but diabetes and peripheral neuropathy cause an inability to empty the bladder even in the absence of any type of obstruction. We are unable to reverse the diabetic neuropathy, so makes the most sense to treat any obstruction that is present. He already has a Parr catheter in place. He was just started on tamsulosin today. He will be [facility]. Generally, we recommend a voiding trial after a minimum of 3 days of alpha-cheryl. This gentleman already has an appointment set up with us for next week, but we may be able to coordinate having his catheter removed there at [facility] followed by an appointment with us afterwards.
[2018-08-04] MEDS: Tamsulosin 0.4 MG CAPCR PO (17:19)
--- NOTE | 2018-08-04 17:31 | CM.SWINGPC ---
- If Service Date Differs Date of service: 08/04/18 Time of Service: 17:31 Swingbed Plan of Care Plan of care: SWING BED PROGRAM ACTIVITIES/DISCHARGE PLAN OF CARE ACTIVITIES PLAN Date:08/04/18 Identified Need:Individual activities Intervention/Plan: Activity cart, rekie, music therapy, pet therapy and television, phone in the room. Angelita LEIJA DISCHARGE PLAN Date:08/04/18 Identified Need:Short term rehab prior to returning to his room at [employer] daughter. Intervention/Plan: SNF referral to [facility] with a bed offer. Initials LISS
--- NOTE | 2018-08-04 17:33 | CM.SBPSYCH ---
- If Service Date Differs Date of service: 08/04/18 Time of Service: 17:33 SB Psychosocial/Act.Assessment - Social Supports PREVIOUS FUNCTIONAL STATUS/SOCIAL/FAMILY SUPPORTS:: Segun was living at assisted living at [facility] in [place], [place] untill Nov 2016 he decided to move to a boarding house in [facility]. Segun has a community therapist whom he meets with twice a week. He also has support from Alycia Everett who is his prior therapist and support person now. He states he wants to return to the [facility] when he is ready. He states he cannot stand the thought of living back at [facility]. He states he was not having difficulty at home untill he had the rossi placed. - Prior to Admission Living Arrangements/Environment Prior to Admission:: Segun lives at a boarding [facility] in [place], [place]. His room is on the first floor and he received home health services including nursing at the home. - Benefits Financial: Social Security, Medicare, Medicaid - Advance Directives for Healthcare Advance Directives for Healthcare: Advance Directives Advance Directive Agent: On file Agent Marlena Quintana - Present Functional Status Physical Abilities:: Weakness, r/t recent changes in health including urinary retention and falls at home. Cognitive:: History of TBI Behavior:: Segun is appropiate he expresses concerns related to change. He reports difficulty with new situations. - Medical History PAST MEDICAL HISTORY/PAST SURGICAL HISTORY:: DM, Hyperlipidemia, HTN, Depression [facility] anxiety, TBI 1961 General Health:: Fair Past Psychiatric Treatment:: Therapist in the [facility] Ci[place] that he meets with twice a week. - Admission Data Reason for Swing Bed Admission:: Placement for short term rehab pending bed availablity Discharge Plan:: Discharge to [facility] on Wednesday08/05/18 for short term rehab prior to returning to [facility] with support services. Assessment: Segun has had multiple ED visits in the past two weeks including two falls at home. He is not able to return home without PT and OT and shorter rehab. He feels that most of his weakness started around the time he started having urinary retention. He describes difficulty in managing his cath at home and felt that this was his biggest challange. He is hopeful that he will be able to return home without it after reahab. CM coordinated pt to meet with health and rehab admissions. Segun was able to have his questions answered and he is willing to go to the rehab for a short SNF stay. Payroll Coordinator: Fany Che Date Assessment was completed:: 08/04/18
--- NOTE | 2018-08-04 17:51 | CMSA_ITS ---
- If Service Date Differs Date of service: 08/04/18 Time of Service: 17:33 SB Psychosocial/Act.Assessment - Social Supports PREVIOUS FUNCTIONAL STATUS/SOCIAL/FAMILY SUPPORTS:: Segun was living at assisted living at [facility] in [place], [place] untill Nov 2016 he decided to move to a boarding house in [facility]. Segun has a community therapist whom he meets with twice a week. He also has support from Alycia Everett who is his prior therapist and support person now. He states he wants to return to the [facility] when he is ready. He states he cannot stand the thought of living back at [facility]. He states he was not having difficulty at home untill he had the rossi placed. - Prior to Admission Living Arrangements/Environment Prior to Admission:: Segun lives at a boarding [facility] in [place], [place]. His room is on the first floor and he received home health services including nursing at the home. - Benefits Financial: Social Security, Medicare, Medicaid - Advance Directives for Healthcare Advance Directives for Healthcare: Advance Directives Advance Directive Agent: On file Agent Marlena Quintana - Present Functional Status Physical Abilities:: Weakness, r/t recent changes in health including urinary retention and falls at home. Cognitive:: History of TBI Behavior:: Segun is appropiate he expresses concerns related to change. He reports difficulty with new situations. - Medical History PAST MEDICAL HISTORY/PAST SURGICAL HISTORY:: DM, Hyperlipidemia, HTN, Depression [facility] anxiety, TBI 1961 General Health:: Fair Past Psychiatric Treatment:: Therapist in the [facility] [place] that he meets with twice a week. - Admission Data Reason for Swing Bed Admission:: Placement for short term rehab pending bed availablity Discharge Plan:: Discharge to [facility] on Wednesday08/05/18 for short term rehab prior to returning to [facility] with support services. Assessment: Segun has had multiple ED visits in the past two weeks including two falls at home. He is not able to return home without PT and OT and shorterm re hab. He feels that most of his weakness started around the time he started having urinary retention. He describes difficulty in managing his cath at home and felt that this was his biggest challange. He is hopeful that he will be able to return home without it after reahab. CM coordinated pt to meet with health and rehab admissions. Segun was able to have his questions answered and he is willing to go to the rehab for a short SNF stay. Coal Washer: Fany Che Date Assessment was completed:: 08/04/18
[2018-08-04 20:28] VITALS: BP 142/78; PULSE 71; RESP 16; TEMP 37; O2SAT 97
[2018-08-04] MEDS: Acetaminophen 325 MG TAB 650 MG PO (20:28)
[2018-08-05 04:08] VITALS: BP 146/83; PULSE 57; RESP 16; TEMP 36.8; O2SAT 97
[2018-08-05 07:30] VITALS: BP 151/81; PULSE 65; RESP 18; TEMP 37; O2SAT 97
[2018-08-05] MEDS: Metoprolol CR 25 MG TABCR 75 MG PO (07:51)
[2018-08-05] MEDS: Atorvastatin 40 MG TAB 80 MG PO (07:51)
[2018-08-05] MEDS: buPROPion-XL 150 MG TABCR 300 MG PO (07:51)
[2018-08-05] MEDS: Aspirin 325 MG TAB PO (07:52)
[2018-08-05] MEDS: amLODIPine 2.5 MG TAB PO (07:52)
[2018-08-05] MEDS: Cetirizine 10 MG TAB PO (07:52)
[2018-08-05] MEDS: metFORMIN 500 MG TAB 1000 MG PO (07:52)
[2018-08-05] MEDS: Finasteride 5 MG TAB PO (07:52)
[2018-08-05] MEDS: Multivitamin TAB 1 TAB PO (07:53)
[2018-08-05] MEDS: Insulin Glargine 300 UNITS/3 ML PEN 50 UNITS SC (07:53)
[2018-08-05 08:46] VITALS: BP 129/76; BP 132/75; PULSE 63; PULSE 65
--- NOTE | 2018-08-05 09:38 | CMDISCH_ITS ---
- If Service Date Differs Date of service: 08/05/18 Time of Service: 09:27 LACE Index Scoring Tool - Questions: Length of Stay (in days): 3 Acuity (Admit via E.D.?): Yes Comorbidities: Diabetes w/o Complication, Congestive Heart Failure E.D. Visits: 3 - Answers: Total Score: 12 Risk of Readmission: High Risk Care Management Discharge Reason for Hospitalization: SB1 for weakness, falls and new diagnosis of urinary retention. Discharge Plan: Segun is being discharged today to [facility] a [facility] term rehab prior to retuning home. He will be discharged with the rossi cath and follow up Dr. Raya. CM spoke with [facility] support person Sarina Everett and she will bring Segun bazan over to the Rehab on Wednesday. Segun will be transported via wheelchair van at 1100 today. Patient/Family Education Needs: Discharge education, limitations and follow up plan of care including expectations of transfer to SNF facility. Services Needed at Discharge: Prison Facility, Transportation
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
--- NOTE | 2018-08-05 11:12 | OT.INDS ---
Date of service: 08/05/18 Time of Service: 11:12 Occupational Therapy Notes Occupational Therapy Inpatient Discharge Summary Date: 08/05/18 Dates of Service: 08/04/18-08/05/18 Referring Doctor:Kush Reyez MD OT Orders: Evaluate and treat for generalized weakness, frequent falls, diminished ADL performance Precautions: Fall, Standard PATIENT PROFILE/ADMITTING DIAGNOSIS: Pt is a 72 year old female who was admitted through the ER for generalized weakness, multiple falls, A-fib, chronic urinary retention and (R) sided encephalomalacia. Pt is admitted swing bed rehabilitation status. Past Medical History: Medical History Atrial fibrillation (Chronic) Angina pectoris (03/11/09) Congestive heart failure (12/30/01) DNI (do not intubate) (03/28/08) DNR (do not resuscitate) (03/28/08) Diabetes mellitus (07/11/05) Disability examination (08/30/07) Hyperlipidemia (07/11/05) Hypertension (04/29/01) Hypomagnesemia (12/26/07) Myocardial infarct (04/29/01) Obesity Polycythemia (03/28/08) Surgical History Repair of inguinal hernia (12/24/09) Stent placement (04/29/01) Social History/Home Situation: Pt reports that he lives in an apartment in a living situation where the residents in the building share a bathroom space and a kitchen space. He states that there is only one person who he feels is nice in his current living situation and that he plans to stay at [facility] until another living situation is found for him. Pt states that he had HH services at his apartment for 1 week for increased (I) in use of his rossi. He notes that he is totally (I) with all ADLs/IADLs at home for his baseline. Pt states I'm not going back home, I want a new place to live I know that there are more services and I have a TBI. Pt indicates that he showers rarely and brushes his teeth every once in a while. Equipment owned/DME: FWW, shower bench, grab bars This document serves as a summary of care, no skilled OT services provided for this documentation. SUBJECTIVE: OT went in to see pt. He denies performance of OT services today and states that he needs to rest today to be able to transfer to SNF later today. OBJECTIVE: ROM: RUE AROM WFL L UE AROM WFL STRENGTH: RUE shoulder flexion 4-/5, elbow 4/5, wrist and digits 4-/5 LUE shoulder flexion 4-/5, elbow 4/5, wrist and digits 4/5 FUNCTIONAL MOBILITY/ADLS: Transfers Supine-sit (I) Sit-Stand CGA, FWW Stand-sit CGA, FWW Bed-Chair CGA, FWW EATING Sitting in chair (I) with eating routine. Dressing- (I) with donning (B) shoes and socks with ideal techniques. BALANCE: Assessed at initial eval. Static sitting Normal Dynamic Sitting Normal Static Standing Good Dynamic Standing Fair ASSESSMENT: Patient is a 72-year-old male referred to occupational therapy services with diagnosis of generalized weakness, multiple falls in the past week, chronic urinary retention and (R) sided encephalomalacia and A-Fib. Pt was seen for OT consult only. He denied any OT intervention today but was receptive to going to SNF. OT will plan to discharge pt from skilled OT services at this time. GOALS- Not met pt was seen for OT consult only. 1. Transfers (S),FWW 2. Dressing-Sitting in chair (I) UE/LE dressing 3. Bathing- Standing at sink (I) , FWW 4. Eating- (I) sitting in chair 5. Grooming- (I) standing at sink with FWW PLAN OF CARE/TREATMENT PLAN: Discharge pt from skilled OT services at this time. Pt to be transferred to [facility] today. DISCHARGE RECOMMENDATIONS-SNF TREATMENT TIME/MINUTES/CODES N/A Nayana Medley OTR/L [facility]
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
== END 2018-08-05 11:14 | disposition skilled nursing facility (03) | DRG 696 ==
LOC: ER 21:28 → MS 21:51
PROVIDERS: Admitting Provider Internal Medicine; Emergency Provider Emergency Medicine; PCP Student in an Organized Health Care Education/Training Program; Visit Provider Internal Medicine
DX: R33.9 Retention of urine, unspecified (principal); R29.6 Repeated falls; R53.1 Weakness; R42 Dizziness and giddiness; E11.42 Type 2 diabetes mellitus with diabetic polyneuropathy; E78.5 Hyperlipidemia, unspecified; I25.10 Atherosclerotic heart disease of native coronary artery without angina pectoris; I48.91 Unspecified atrial fibrillation; I50.9 Heart failure, unspecified; I11.0 Hypertensive heart disease with heart failure; Z79.4 Long term (current) use of insulin; Z96.0 Presence of urogenital implants; Z95.5 Presence of coronary angioplasty implant and graft; Z66 Do not resuscitate
CPT/HCPCS: 36415; 36416; 80048; 82962; 85027; 97162; 97166; 97530; 99222; 99239; 99252; 99285; 99306; 99316; 70450; 83036; 99284

== ENCOUNTER → 2018-08-12 15:19 | Outpatient (BNVA) | payer MEDICARE, MEDICAID, SELFPAY | PROVIDERS: PCP Student in an Organized Health Care Education/Training Program; Visit Provider Urology | DX: R33.9 Retention of urine, unspecified (principal); Z46.6 Encounter for fitting and adjustment of urinary device; I10 Essential (primary) hypertension | CPT/HCPCS: 51702; 51798; 99213 ==

== ENCOUNTER → 2018-08-19 14:45 | Outpatient (BNVA) | payer MEDICARE, MEDICAID, SELFPAY | PROVIDERS: PCP Student in an Organized Health Care Education/Training Program; Visit Provider Urology | DX: R33.9 Retention of urine, unspecified (principal) | CPT/HCPCS: 51702; 99212 ==

== ENCOUNTER 2018-09-06 10:55 | Outpatient (CLI) | payer MEDICARE, MEDICAID, SELFPAY | END 2018-09-06 11:15 | LOC: LBN 11:02 → LBO 11:02 | PROVIDERS: PCP Student in an Organized Health Care Education/Training Program; Visit Provider Nurse Practitioner Adult Health | DX: E11.42 Type 2 diabetes mellitus with diabetic polyneuropathy (principal) | CPT/HCPCS: 36415; 83036 ==

== ENCOUNTER → 2018-09-23 13:50 | Outpatient (BNVA) | payer MEDICARE, MEDICAID, SELFPAY | PROVIDERS: PCP Student in an Organized Health Care Education/Training Program; Visit Provider Urology | DX: R33.9 Retention of urine, unspecified (principal); E11.9 Type 2 diabetes mellitus without complications; I11.0 Hypertensive heart disease with heart failure; I50.9 Heart failure, unspecified | CPT/HCPCS: 51798; 99211; 99213 ==

== ENCOUNTER 2018-09-27 15:02 | Outpatient (REF) | payer MEDICARE, MEDICAID, SELFPAY ==
[2018-09-27 15:19] LABS: Bilirubin Negative (Negative); Blood Large (Negative); Clarity Cloudy (Clear); Glucose Negative (Negative); Ketones Negative (Negative); Leukocyte Esterase Moderate (Negative); Nitrite Negative (Negative); Specific Gravity 1.015 (1.005-1.025); Urobilinogen 0.2 EU/dL (Up TO 0.2); pH 5.5 (5-8)
[2018-09-27 15:46] LABS: Bacteria Moderate HPF (Negative); C & S Indicated? Yes; Casts Negative LPF (Negative); Crystals Negative HPF (Negative); Epithelial Cells Rare HPF (Negative); Mucus Moderate (Negative); Other Cells Negative (Negative); RBC >50 (0-2); WBC >50 HPF (0-5)
== END 2018-09-27 15:22 ==
LOC: LBN 15:02
PROVIDERS: PCP Student in an Organized Health Care Education/Training Program; Visit Provider Nurse Practitioner Adult Health
DX: R33.9 Retention of urine, unspecified (principal)
CPT/HCPCS: 87077; 81003; 81015; 87086; 87186

== ENCOUNTER 2018-10-22 18:22 | Outpatient (REF) | payer MEDICARE, MEDICAID, SELFPAY ==
[2018-10-22 19:25] LABS: Bilirubin Negative (Negative); Blood Small (Negative); Clarity Cloudy (Clear); Glucose 500 mg/dL (Negative); Ketones Negative (Negative); Leukocyte Esterase Small (Negative); Nitrite Positive (Negative); pH 6.5 (5-8)
[2018-10-22 19:32] LABS: Bacteria Many HPF (Negative); C & S Indicated? C&S Done As Ordered; Casts Negative LPF (Negative); Crystals Negative HPF (Negative); Epithelial Cells Negative HPF (Negative); Mucus Moderate (Negative); Other Cells Negative (Negative); RBC >50 (0-2); WBC >50 HPF (0-5)
== END 2018-10-22 18:42 ==
LOC: LBN 18:22
PROVIDERS: PCP Student in an Organized Health Care Education/Training Program; Visit Provider Family Medicine
DX: R33.9 Retention of urine, unspecified (principal)
CPT/HCPCS: 87077; 81003; 81015; 87086; 87186

== ENCOUNTER → 2018-11-09 12:43 | Outpatient (BNVA) | payer MEDICARE, MEDICAID, SELFPAY | PROVIDERS: PCP Student in an Organized Health Care Education/Training Program; Visit Provider Student in an Organized Health Care Education/Training Program | DX: I48.2 Chronic atrial fibrillation (principal); I21.4 Non-ST elevation (NSTEMI) myocardial infarction; Z95.5 Presence of coronary angioplasty implant and graft; E11.9 Type 2 diabetes mellitus without complications; I10 Essential (primary) hypertension; I63.9 Cerebral infarction, unspecified; Z79.01 Long term (current) use of anticoagulants | CPT/HCPCS: 99205; 99215 ==

== ENCOUNTER → 2018-12-23 11:49 | Outpatient (BNVA) | payer MEDICARE, MEDICAID, SELFPAY | PROVIDERS: PCP Student in an Organized Health Care Education/Training Program; Referring Provider Student in an Organized Health Care Education/Training Program; Visit Provider Urology | DX: R33.9 Retention of urine, unspecified (principal) | CPT/HCPCS: 51798; 99213 ==

== ENCOUNTER 2019-03-02 22:54 | Outpatient (REF) | payer MEDICARE, MEDICAID, SELFPAY ==
[2019-03-10 10:56] LABS: Fungus Smear No Fungi Seen
== END 2019-03-02 23:14 ==
LOC: LBN 22:54
PROVIDERS: PCP Student in an Organized Health Care Education/Training Program; Visit Provider Student in an Organized Health Care Education/Training Program
DX: N48.89 Other specified disorders of penis (principal)
CPT/HCPCS: 87102; 87206

== ENCOUNTER 2019-04-08 18:41 | Emergency (ER) | payer MEDICARE, MEDICAID, SELFPAY ==
[2019-04-08 18:46] VITALS: BP 190/89; PULSE 78; RESP 16; TEMP 36.8; O2SAT 97
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
--- NOTE | 2019-04-08 19:08 | NUR.NOTE ---
Pt refused blood work and IV. Per card decorator he's gonna go crazy if you trty to do too much stuff. Pt agreeable to flu swab, EKG and CXR. SCAR Fiore aware.
--- NOTE | 2019-04-08 19:38 | DI.RAD_ITS ---
EXAM: XR CHEST 2V PA LATERAL INDICATION: Shortness of breath, hiccups x 6 days. COMPARISON: No exams were available for comparison TECHNIQUE: 2D digital imaging was performed. FINDINGS: Heart size is at is at the upper limits of normal. The lungs are clear. No infiltrate, effusion or pulmonary edema is seen. Stable partial fusion deformity is seen in the lower thoracic spine. IMPRESSION: No acute abnormality.
--- NOTE | 2019-04-08 19:56 | DI.VRAD_ITS ---
PROCEDURE INFORMATION: Exam: XR Chest, 2 Views Exam date and time: 04/08/2019 7:38 PM Age: 73 years old Clinical indication: Shortness of breath and other: Hiccups x 6 days; Patient HX: Shortness of breath, hiccups x 6 days TECHNIQUE: Imaging protocol: XR of the chest Views: 2 views. COMPARISON: CR XR CHEST 2V PA LATERAL 07/30/2018 12:01 PM FINDINGS: Lungs: Clear lungs. Pleural space: No pneumothorax. No sizable pleural effusion. Heart/Mediastinum: No cardiomegaly. Bones/joints: Unremarkable. IMPRESSION: Clear lungs. Dictated and Authenticated by: Pedro Clarke MD. Ordering:AUGIE Fiore MD
[2019-04-08] MEDS: chlorproMAZINE 25 MG TAB PO (20:38)
[2019-04-08] MEDS: Baclofen 10 MG TAB 5 MG PO (20:50)
[2019-04-08 20:53] VITALS: BP 178/83; PULSE 78; RESP 16; TEMP 36.9; O2SAT 96
== END 2019-04-08 20:45 | disposition home or self-care (01) ==
PROVIDERS: Emergency Provider Registered Nurse Emergency; PCP Student in an Organized Health Care Education/Training Program
DX: R06.6 Hiccough (principal); I10 Essential (primary) hypertension; Z79.4 Long term (current) use of insulin; E11.9 Type 2 diabetes mellitus without complications; Z79.01 Long term (current) use of anticoagulants; I48.91 Unspecified atrial fibrillation
CPT/HCPCS: 80053; 87449; 93005; 99284; 71046; 85025; 93010

== ENCOUNTER 2019-06-09 19:18 | Emergency (ER) | payer MEDICARE, MEDICAID, SELFPAY ==
[2019-06-09 19:23] VITALS: BP 164/96; PULSE 73; RESP 15; TEMP 36.5; O2SAT 95
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
[2019-06-09 19:40] VITALS: BP 166/87; PULSE 72; RESP 16; O2SAT 97
[2019-06-09] MEDS: Glucagon 1 MG VIAL SC (19:46)
[2019-06-09 20:01] LABS: Abs Immature Grans 0.02 k/cumm (0.0-0.09); Absolute Basophil Count 0.01 k/cumm (0.0-0.2); Absolute Eosinophil Count 0.05 k/cumm (0.0-0.7); Absolute Lymphocyte Count 0.84 k/cumm (1.2-3.4); Absolute Monocyte Count 0.65 k/cumm (0.11-0.7); Absolute Neutrophil Count 6.04 k/cumm (1.2-6.7); Basophils % 0.1; Eosinophils % 0.7; HGB 17.3 g/dL (13.5-17.5); Immature Grans % 0.3 %; Mean Corp. HGB Concentration 35.3 g/dL (32.0-36.0); Mean Corpuscular Hemoglobin 32.8 pg (27.0-33.0); Mean Corpuscular Volume 92.8 fL (80-95); Mean Platelet Volume 9.8 fL (8.0-11.0); Monocytes % 8.5; Neutrophils % 79.4; Platelet Count 211 x1000/uL (130-400); RBC 5.28 m/cumm (4.50-6.00); RBC Distribution Width 13.7 % (11.8-14.1); White Blood Cell Count 7.61 k/cumm (4.4-10.8)
[2019-06-09 20:20] LABS: ALT 33 U/L (16-63); AST 22 U/L (15-37); Albumin 3.5 g/dL (3.4-5.0); Alkaline Phosphatase 82 U/L (46-116); Anion Gap 7.8 mmol/L (3-11); BUN 9 mg/dL (7-18); Bilirubin, Total 1.1 mg/dL (0.2-1.0); CO2 30.2 mmol/L (21.0-32.0); CREATININE 0.86 mg/dL (0.70-1.30); Calcium 8.8 mg/dL (8.5-10.1); Chloride 102 mmol/L (98-107); Glucose 70 mg/dL (74-106); Potassium 3.1 mmol/L (3.5-5.1); Sodium 140 mmol/L (136-145); Total Protein 7.4 g/dL (6.4-8.2)
--- NOTE | 2019-06-09 22:02 | DI.CT_ITS ---
EXAM: CT ABDOMEN PELVIS WO CLINICAL HISTORY: ABDOMINAL PAIN. TECHNIQUE: Imaging Protocol: Axial computed tomography images with coronal and sagittal reformatted images were created and reviewed. Oral: no COMPARISON: No exams were available for comparison FINDINGS: ABDOMEN: The exam is limited by patient motion. The patient was unable to hold his breath for the ex am. Lung Bases: Dependent atelectasis. Cardiomegaly. Coronary artery calcifications. Pleural thickenin g versus trace pericardial effusion.. Liver: Normal density. No measurable mass. Gallbladder and biliary tract: No radiodense calculus or dilation. Pancreas: Normal density, no abnormal calcifications or inflammatory process. Spleen: Normal. Kidneys: Normal size, contour and axis. No radiodense stones or obstructive uropathy. No masses seen. A 2.7 centimeter left renal cyst is noted. There is mild nonspecific symmetric perinephric edema. Adrenal glands: No masses seen. Lymph nodes: Within normal limits. Abdominal Aorta: Abdominal portion non-dilated. There is a small fatty containing umbilical hernia. PELVIS: Bladder: Marked distention to the level of the umbilicus. Enlarged prostate, measuring 6 cm transvers e. No gross wall thickening. Bowel: Diverticulosis. There is a question of diverticulitis of the descending colon; however, there is motion in this area. No obstruction. Peritoneal cavity: No ascites, collection or mesenteric inflammatory response. Bones: Degenerative changes. There is partial fusion T9 through L1. IMPRESSION: Limited exam due to patient motion and lack of oral and IV contrast. Enlarged prostate and distended urinary bladder. No evidence of hydronephrosis. Diverticulosis of the descending colon with question of mild superimposed diverticulitis versus patie nt motion. DATA REPOSITORY: All CT scans at this facility are submitted to the National Radiology Data Registry (NRDR) Dose Index Registry (DIR) with the [employer] (ACR). RADIATION OPTIMIZATION: All CT scans at this facility use at least one of these dose optimization te chniques: automated exposure control; mA and/or kV adjustment per patient size (includes targeted exa ms where dose is matched to clinical indication); or iterative reconstruction.
[2019-06-09 22:18] LABS: Bilirubin Negative (Negative); Blood Negative (Negative); Clarity Clear (Clear); Glucose 100 mg/dL (Negative); Ketones Negative (Negative); Leukocyte Esterase Negative (Negative); Nitrite Negative (Negative); Specific Gravity 1.015 (1.005-1.025); Urobilinogen 0.2 EU/dL (Up TO 0.2)
--- NOTE | 2019-06-09 22:18 | DI.VRAD_ITS ---
PROCEDURE INFORMATION: Exam: CT Abdomen And Pelvis Without Contrast Exam date and time: 06/09/2019 9:57 PM Age: 73 years old Clinical indication: Abdominal pain; Generalized TECHNIQUE: Imaging protocol: Computed tomography of the abdomen and pelvis without contrast. Radiation optimization: All CT scans at this facility use at least one of these dose optimization techniques: automated exposure control; mA and/or kV adjustment per patient size (includes targeted exams where dose is matched to clinical indication); or iterative reconstruction. COMPARISON: No relevant prior studies available. FINDINGS: Lungs: Mild atelectasis in the lung bases. Pleural space: No pleural effusion. Heart: Normal heart size with trace pericardial fluid. Liver: Normal. No mass. Gallbladder and bile ducts: Normal. No calcified stones. No ductal dilation. Pancreas: Normal. No ductal dilation. Spleen: Normal. No splenomegaly. Adrenals: Normal. No mass. Kidneys and ureters: Left renal cyst measuring 2.7 cm. The kidneys and ureters are otherwise within normal limits. Mild symmetric perinephric edema. Stomach and bowel: Diverticulosis with trace nonspecific pericolonic infiltration in the mid descending colon, this may represent mild diverticulitis. The colon is nondistended somewhat limiting evaluation of wall thickness. Appendix: No evidence of appendicitis. Intraperitoneal space: No free fluid, pneumoperitoneum, or drainable fluid collection. Vasculature: Mild aortoiliac atherosclerotic calcification. No aneurysm. Lymph nodes: No enlarged lymph nodes. Bladder: The urinary bladder is distended with the fundus at the level of the umbilicus, clinical correlation for urinary retention is suggested. Reproductive: Enlarged prostate measuring up to 6.1 cm in transverse diameter. Bones/joints: Degenerative changes of the spine. Degenerative changes of the hips. No acute fracture. Partial vertebral body fusion from T9 through L1. Grade 1 anterolisthesis of L5 on S1 without spondylolysis. Soft tissues: Small fat containing umbilical hernia. IMPRESSION: 1. Urinary bladder distension without significant wall thickening or surrounding infiltration. Clinical correlation for urinary retention is suggested. Enlarged prostate. 2. Diverticulosis with trace pericolonic infiltration in the mid descending colon, nonspecific, mild uncomplicated diverticulitis is not excluded. Evaluation of the colon wall is somewhat limited due to underdistention. 3. Incidental nonemergent findings are described above. Dictated and Authenticated by: Gena Byrnes MD. Ordering:AUGIE Fiore MD
[2019-06-09 22:25] LABS: Bacteria Rare HPF (Negative); C & S Indicated? No; Casts Negative LPF (Negative); Crystals Negative HPF (Negative); Epithelial Cells Rare HPF (Negative); Mucus Trace (Negative); Other Cells Negative (Negative); RBC Negative HPF (0-2); WBC Negative HPF (0-5)
[2019-06-09 22:59] VITALS: BP 134/91; PULSE 78; RESP 16; O2SAT 98
[2019-06-09] MEDS: Ciprofloxacin 500 MG TAB PO (23:03)
[2019-06-09 23:09] VITALS: BP 134/91; PULSE 78; RESP 16; TEMP 36.8; O2SAT 98
== END 2019-06-09 23:10 | disposition home or self-care (01) ==
PROVIDERS: Emergency Provider Registered Nurse Emergency; PCP Student in an Organized Health Care Education/Training Program
DX: E11.649 Type 2 diabetes mellitus with hypoglycemia without coma (principal); K57.32 Diverticulitis of large intestine without perforation or abscess without bleeding; Z79.4 Long term (current) use of insulin; I10 Essential (primary) hypertension
CPT/HCPCS: 36415; 36416; 80053; 82962; 99284; 74176; 81003; 81015; 85025; J1610

== ENCOUNTER 2019-11-21 18:35 | Outpatient (REF) | payer MEDICARE, MEDICAID, SELFPAY | END 2019-11-21 18:55 | LOC: LBN 18:35 | PROVIDERS: PCP Student in an Organized Health Care Education/Training Program; Visit Provider Student in an Organized Health Care Education/Training Program | DX: S00.01XA Abrasion of scalp, initial encounter (principal) | CPT/HCPCS: 87070 ==

== ENCOUNTER 2020-10-25 12:19 | Outpatient (REF) | payer MEDICARE, MEDICAID, SELFPAY ==
[2020-10-26 17:35] LABS: COVID-19 RT-PCR UVMMC Result Positive (Negative)
== END 2020-10-25 12:20 | disposition home or self-care (01) ==
LOC: LBN 12:19
PROVIDERS: PCP Student in an Organized Health Care Education/Training Program; Visit Provider Student in an Organized Health Care Education/Training Program
DX: Z20.822 Contact with and (suspected) exposure to COVID-19 (principal)
CPT/HCPCS: U0003; U0005

== ENCOUNTER 2020-11-11 11:37 | Emergency (ER) | payer MEDICARE, MEDICAID, SELFPAY ==
--- NOTE | 2020-11-11 11:30 | RT.EKG_ITS ---
APPROVED REPORT Exam: Resting ECG Reason for Exam: SOB, Patient Location: E HR:73 bpm ECG Measurements Heart Rate 73 AXIS NC [id number] P [id number] QRSd 85 QRS -35 QT 372 T 256 QTc 411 Conclusion Atrial fibrillation...V-rate 56- 79, irreg A-activity Ventricular bigeminy...bigeminy string>4 w/ V complexes Left axis deviation...QRS axis (-30,-90) Probable anterolateral infarct, age indeterm...Q >35mS, T neg, V2-V6,I,aVL no STEMI I have reviewed and interpreted ECG and agree with software generated interpretation.
[2020-11-11 11:46] VITALS: BP 135/63; PULSE 73; RESP 20; TEMP 36.5; O2SAT 93
--- NOTE | 2020-11-11 12:00 | DI.RAD_ITS ---
Exam(s) XR PORTABLE CHEST AP EXAM: XR PORTABLE CHEST AP CLINICAL HISTORY: Covid positive, Cough TECHNIQUE: 2D digital imaging was performed. COMPARISON: CR,XR XR CHEST 2V PA LATERAL from 04/08/2019 FINDINGS: LUNGS: Bilateral upper and lower lobe infiltrates. No pleural abnormality seen. HEART: Upper limits of normal. MEDIASTINUM: Normal. BONES: Unremarkable. IMPRESSION: Bilateral pneumonia. DATA REPOSITORY: RADIATION DOSE DELIVERED:
[2020-11-11 12:10] VITALS: RESP 20
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
[2020-11-11 12:43] LABS: Abs Immature Grans 0.08 10^3/uL (0.0-0.06); Absolute Basophil Count 0.02 10^3/uL (0.0-0.2); Absolute Eosinophil Count 0.01 10^3/uL (0.0-0.7); Absolute Lymphocyte Count 0.71 10^3/uL (1.2-3.4); Absolute Monocyte Count 0.61 10^3/uL (0.1-0.8); Absolute Neutrophil Count 7.15 10^3/uL (1.2-6.7); Basophils % 0.2; Eosinophils % 0.1; HGB 12.9 g/dL (13.5-17.5); Immature Grans % 0.9; Lymphocytes % 8.3; MCH 30.1 pg (27.0-33.0); MCHC 33.1 % (32.0-36.0); MCV 91.1 fL (80-95); MPV 9.1 fL (8.0-11.0); Monocytes % 7.1; Neutrophils % 83.4; Nucleated RBC 0 %; Platelet Count 269 10^3/uL (130-400); RBC 4.28 10^6/uL (4.36-5.78); RDW 13.2 % (11.8-14.1); RDW-SD 44.1 fL; WBC 8.58 10^3/uL (4.4-10.8)
[2020-11-11 13:03] LABS: ALT 51 U/L (16-63); AST 47 U/L (15-37); Albumin 2.3 g/dL (3.4-5.0); Alkaline Phosphatase 118 U/L (46-116); BUN 15 mg/dL (7-18); Bilirubin, Total 1.2 mg/dL (0.2-1.0); C-Reactive Protein 6.71 mg/dL (0.0-0.3); Calcium 8.4 mg/dL (8.5-10.1); Chloride 99 mmol/L (98-107); Glucose 119 mg/dL (74-106); NT-proBNP 4592 pg/mL (<300); Sodium 138 mmol/L (136-145); Total Protein 7.2 g/dL (6.4-8.2); Troponin I < 0.05 ng/mL (<0.06)
[2020-11-11 13:10] LABS: Potassium 2.6 mmol/L (3.5-5.1)
[2020-11-11 13:15] LABS: D-Dimer 3096 ng/mlFEU (<500)
[2020-11-11] MEDS: Furosemide 20 MG TAB 40 MG PO (13:31)
[2020-11-11 13:34] LABS: Ferritin 557 ng/mL (26-388)
[2020-11-11 13:49] LABS: Magnesium 1.4 mg/dL (1.8-2.4)
[2020-11-11 14:19] LABS: Procalcitonin < 0.1 ng/mL
[2020-11-11] MEDS: Magnesium Oxide 400 MG TAB PO (14:30)
[2020-11-11] MEDS: Amoxicillin 875/Clav. 125 TAB PO (14:30)
[2020-11-11] MEDS: Potassium Chloride Liquid 20 MEQ PKT 40 MEQ PO (14:30)
[2020-11-11 14:51] VITALS: RESP 20
--- NOTE | 2020-11-12 11:40 | CMACTNOTE_ITS ---
- If Service Date Differs Date of service: 11/12/20 Time of Service: 11:40 Care Management Activity Note GIN receives a telephone call from Leyda, chronic anesthesiologist and critical care at [facility]. Leyda advises that Segun has cancelled today's appointment with his PCP. She asks if GIN can obtain the ED provider's signature on a Home Health Referral. The referral is signed by Macarena Drake NP, the ED provider who saw Segun yesterday, and the referral is faxed to Leyda's attention at [facility], per her request.
== END 2020-11-11 14:50 | disposition left against medical advice (07) ==
PROVIDERS: Emergency Provider Registered Nurse Emergency; PCP Student in an Organized Health Care Education/Training Program
DX: U07.1 COVID-19 (principal); J18.9 Pneumonia, unspecified organism; E87.8 Other disorders of electrolyte and fluid balance, not elsewhere classified; I11.0 Hypertensive heart disease with heart failure; I50.9 Heart failure, unspecified; Z53.29 Procedure and treatment not carried out because of patient's decision for other reasons
CPT/HCPCS: 36415; 80053; 84145; 93005; 99284; 71045; 82728; 83735; 83880; 84484; 85025; 85379; 86140; 93010

== ENCOUNTER 2020-11-16 18:49 | Inpatient (IN) | payer MEDICARE, MEDICAID, SELFPAY ==
[2020-11-16] VITALS (55 sets, daily range): BP systolic 112–135; BP diastolic 60–85; PULSE 71–89; RESP 17–34; TEMP 36.7–37.1; O2SAT 80–91
--- NOTE | 2020-11-16 18:30 | RT.EKG_ITS ---
APPROVED REPORT Exam: Resting ECG Reason for Exam: chest pain Patient Location: E HR:80 bpm ECG Measurements Heart Rate 80 AXIS CA [id number] P [id number] QRSd 79 QRS 15 QT 362 T 125 QTc 418 Conclusion Atrial fibrillation...V-rate 70- 95, irreg A-activity Ventricular premature complex...V complex w/ short R-R interval Anterior infarct, old...Q >40mS, abnormal ST-T, V2-V5 Nonspecific T abnormalities, lateral leads...T <-0.10mV, I aVL V5 V6 I have reviewed and interpreted ECG and agree with software generated interpretation. There are no significant changes compared to prior EKG performed on 11/11/2020 at 12:02.
--- NOTE | 2020-11-16 19:00 | DI.CT_ITS ---
Exam(s) CT CHEST PE CTA EXAM: CT CHEST PE CTA CLINICAL HISTORY: Covid, SOB, Chest Pain, Pneumonia. TECHNIQUE: Imaging Protocol: Axial CT angiography was performed with multi-slice acquisition and mu lti-planar and/or 3D reconstructions. CONTRAST MATERIAL: Intravenous: Omnipaque 350 Contrast volume:structured data in ml COMPARISON: CT CT ABDOMEN PELVIS WO from 06/09/2019 FINDINGS: CT angiography of the chest was performed with intravenous infusion of 100 cc of Omnipaque 350. There are extensive bilateral pulmonary opacities involving all pulmonary lobes, ground-glass, consol idative, and crazy paving opacities noted. Patient reportedly has a COVID infection and the findings are consistent with COVID pneumonia period there are small bilateral pleural effusions period. Trac heobronchial tree appears intact. No evidence of pulmonary embolic disease. Please note that the segmental and subsegmental pulmonary arterial circulation is not well visualized due to motion. Thoracic aorta is of normal diameter, no thoracic aortic aneurysm or dissection, major branch vessels appear intact. No mediastinal or hilar adenopathy. Images obtained through the upper abdomen show unremarkable appearance of the visualized portions of the liver, spleen, pancreas, adrenals, and kidneys. There is an incidental small left renal cortical cyst. IMPRESSION: The appearance is consistent with extensive bilateral pneumonia, likely of COVID origin as clinically reported period no evidence of pulmonary embolic disease. RADIATION DOSE DELIVERED: 530.4mGy.cm Total DLP 530.4mGy.cm Total DLP CTDIvol DATA REPOSITORY: All CT scans at this facility are submitted to the National Radiology Data Registry (NRDR) Dose Index Registry (DIR) with the [employer] ([employer]). RADIATION OPTIMIZATION: All CT scans at this facility use at least one of these dose optimization te chniques: automated exposure control; mA and/or kV adjustment per patient size (includes targeted exa ms where dose is matched to clinical indication); or iterative reconstruction.
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
[2020-11-16 19:33] LABS: Source Nasal/Nares
[2020-11-16 19:42] LABS: Abs Immature Grans 0.09 10^3/uL (0.0-0.06); Absolute Basophil Count 0.01 10^3/uL (0.0-0.2); Absolute Lymphocyte Count 0.42 10^3/uL (1.2-3.4); Absolute Neutrophil Count 11.19 10^3/uL (1.2-6.7); Basophils % 0.1; HCT 35.9 % (40.0-50.0); Immature Grans % 0.7; Lymphocytes % 3.4; MCH 30.7 pg (27.0-33.0); MCHC 33.4 % (32.0-36.0); MCV 91.8 fL (80-95); MPV 9.6 fL (8.0-11.0); Monocytes % 5.3; Neutrophils % 90.5; Nucleated RBC 0 %; Platelet Count 212 10^3/uL (130-400); RBC 3.91 10^6/uL (4.36-5.78); RDW 13.8 % (11.8-14.1); RDW-SD 46.4 fL; WBC 12.36 10^3/uL (4.4-10.8)
[2020-11-16 19:46] LABS: Magnesium 1.4 mg/dL (1.8-2.4)
[2020-11-16 19:50] LABS: Absolute Monocyte Count 0.66 10^3/uL (0.1-0.8)
[2020-11-16 19:57] LABS: ALT 60 U/L (16-63); AST 55 U/L (15-37); Albumin 1.8 g/dL (3.4-5.0); Alkaline Phosphatase 111 U/L (46-116); Anion Gap 6.5 mmol/L (3-11); BUN 15 mg/dL (7-18); Bilirubin, Total 1.2 mg/dL (0.2-1.0); CO2 28.5 mmol/L (21.0-32.0); Calcium 8.3 mg/dL (8.5-10.1); Chloride 98 mmol/L (98-107); Glucose 214 mg/dL (74-106); NT-proBNP 4966 pg/mL (<300); Potassium 3.8 mmol/L (3.5-5.1); Sodium 133 mmol/L (136-145); Total Protein 6.6 g/dL (6.4-8.2)
[2020-11-16 19:58] LABS: Prothrombin Time 13.5 sec (9.3-11.0)
[2020-11-16] MEDS: MAGNESIUM SULFATE 1 GM/100 ML BAG IVPB (19:58)
[2020-11-16 20:00] LABS: INR 1.3 (0.9-1.1); Troponin I < 0.05 ng/mL (<0.06)
[2020-11-16] MEDS: Omnipaque 350 MG/ML 100 ML BTL IJ (20:23)
[2020-11-16 20:31] LABS: COVID-19 PCR POSITIVE (Negative)
[2020-11-16] MEDS: Dexamethasone 4 MG/ML VIAL 6 MG IVP (20:58)
[2020-11-16 21:13] LABS: C-Reactive Protein 18.43 mg/dL (0.0-0.3)
[2020-11-16 21:36] LABS: Ferritin 735 ng/mL (26-388)
[2020-11-16 21:46] LABS: Procalcitonin 0.2 ng/mL
[2020-11-16] MEDS: DOXYCYCLINE 100 MG in Normal Saline 100 ML IVPB (21:54)
[2020-11-16 21:56] LABS: D-Dimer 7064 ng/mlFEU (<500)
--- NOTE | 2020-11-16 21:56 | DI.VRAD_ITS ---
PROCEDURE INFORMATION: Exam: CTA Chest With Contrast Exam date and time: 11/16/2020 7:05 PM Age: 75 years old Clinical indication: Cough; Prior surgery TECHNIQUE: Imaging protocol: Computed tomographic angiography of the chest with contrast. 3D rendering (Not supervised by radiologist): MIP and/or 3D reconstructed images were created by the technologist. COMPARISON: CR XR PORTABLE CHEST AP 11/11/2020 12:48 PM FINDINGS: Pulmonary arteries: There is no evidence of pulmonary embolus in the large central and segmental pulmonary arteries. The small peripheral branches cannot be adequately evaluated due to motion artifact and technical factors. Aorta: There is no thoracic aortic aneurysm or dissection. Lungs: Multifocal, peripherally distributed, rounded ground-glass opacities with additional scattered areas of crazy paving and organizing pneumonia, typical for Covid-19 pneumonia. Pleural spaces: There are small bilateral pleural effusions. Heart: There is moderate atherosclerotic calcification of the coronary arteries. Lymph nodes: No enlarged mediastinal or hilar lymph nodes are seen. Kidneys and ureters: Partially visualized 15 x 27 mm exophytic simple appearing cyst of the left kidney. Bones/joints: There is partial fusion of the anterior vertebral bodies from T9-L1, possibly developmental. Soft tissues: Unremarkable. IMPRESSION: 1. Commonly reported imaging features of COVID-19 pneumonia are present. Other processes such as influenza pneumonia and organizing pneumonia, as can be seen with drug toxicity and connective tissue disease, can cause a similar imaging pattern. Flag:([id number]) This patient has tested positive for COVID-19. 2. No evidence of pulmonary embolus in the large central and segmental pulmonary arteries. 3. Small bilateral pleural effusions. THIS REPORT CONTAINS FINDINGS THAT MAY BE CRITICAL TO PATIENT CARE. The findings were verbally communicated via telephone conference with SEUN MORALES at 9:50 PM EDT on 11/16/2020. The findings were acknowledged and understood. Dictated and Authenticated by: Aryan Page MD. Ordering:AUGIE Fiore MD
[2020-11-16 22:39] LABS: Troponin I < 0.05 ng/mL (<0.06)
[2020-11-16] MEDS: REMDESIVIR 200 MG in Normal Saline 250 ML 250 MG IVPB (22:48)
--- NOTE | 2020-11-16 23:04 | NUR.NOTE ---
pt has continuously pulled off his mask and his oxygen because it is not comfortable i tried an oxy mask and he would not tolerate that either. Nursing Note:
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
[2020-11-17] VITALS (11 sets, daily range): BP systolic 109–128; BP diastolic 58–69; PULSE 69–79; RESP 18–20; TEMP 34–36.9; O2SAT 86–95
[2020-11-17 07:34] LABS: Abs Immature Grans 0.08 10^3/uL (0.0-0.06); Absolute Basophil Count 0.01 10^3/uL (0.0-0.2); Absolute Lymphocyte Count 0.45 10^3/uL (1.2-3.4); Absolute Monocyte Count 0.45 10^3/uL (0.1-0.8); Absolute Neutrophil Count 10.02 10^3/uL (1.2-6.7); Basophils % 0.1; HCT 36.8 % (40.0-50.0); HGB 12.3 g/dL (13.5-17.5); Immature Grans % 0.7; Lymphocytes % 4.1; MCH 30.5 pg (27.0-33.0); MCHC 33.4 % (32.0-36.0); MCV 91.3 fL (80-95); MPV 9.4 fL (8.0-11.0); Monocytes % 4.1; Nucleated RBC 0 %; Platelet Count 201 10^3/uL (130-400); RBC 4.03 10^6/uL (4.36-5.78); RDW 13.5 % (11.8-14.1); RDW-SD 45.4 fL; WBC 11.01 10^3/uL (4.4-10.8)
[2020-11-17 07:49] LABS: ALT 62 U/L (16-63); AST 60 U/L (15-37); Albumin 1.8 g/dL (3.4-5.0); Alkaline Phosphatase 124 U/L (46-116); Anion Gap 5.7 mmol/L (3-11); BUN 17 mg/dL (7-18); Bilirubin, Total 0.9 mg/dL (0.2-1.0); C-Reactive Protein 19.46 mg/dL (0.0-0.3); CO2 28.3 mmol/L (21.0-32.0); CREATININE 1.1 mg/dL (0.70-1.30); Calcium 7.8 mg/dL (8.5-10.1); Chloride 96 mmol/L (98-107); Glucose 297 mg/dL (74-106); LDH 620 U/L (85-227); Potassium 3.9 mmol/L (3.5-5.1); Sodium 130 mmol/L (136-145); Total Protein 6.9 g/dL (6.4-8.2)
[2020-11-17 08:24] LABS: D-Dimer > 7500 ng/mlFEU (<500)
[2020-11-17] MEDS: Finasteride 5 MG TAB PO (08:53)
[2020-11-17] MEDS: Apixaban 5 MG TAB PO ×2 (08:53→19:48)
[2020-11-17] MEDS: Metoprolol CR 25 MG TABCR PO (08:54)
[2020-11-17] MEDS: Potassium Chloride 20 MEQ TABCR PO (08:54)
[2020-11-17] MEDS: Loratidine 10 MG TAB PO (08:54)
[2020-11-17] MEDS: Atorvastatin 40 MG TAB 80 MG PO ×2 (08:54→19:48)
[2020-11-17] MEDS: Cetirizine 10 MG TAB PO (08:54)
[2020-11-17] MEDS: M 300 MG PO (08:54)
[2020-11-17] MEDS: amLODIPine 2.5 MG TAB PO (08:54)
[2020-11-17] MEDS: Normal Saline Flush 10 ML SYR IVP (08:55)
[2020-11-17] MEDS: Dexamethasone 10 MG/ML VIAL IVP (08:55)
[2020-11-17] MEDS: Insulin Aspart 300 UNITS/3 ML PEN SC ×4 (08:55→18:24)
[2020-11-17 09:21] LABS: Ferritin 1633 ng/mL (26-388)
[2020-11-17] MEDS: DOXYCYCLINE 100 MG in Normal Saline 100 ML IVPB (09:38)
--- NOTE | 2020-11-17 11:46 | W.PM.PROGNOT ---
Date of Service Date of service: 11/17/20 Time of Service: 11:46 Assessment and Plan Assessment and plan (1) Pneumonia due to COVID-19 virus: Status: Acute Assessment and plan: I have added baricitinib to his regimen along w/ decadron (dose was reduced from 10 mg iv daily to 6 mg daily) and remdesivir; he was put on doxycycline, I have added ceftriaxone 1 gm daily as well since his inflammatory markers are going up and he reports a productive cough and his procalcitonin level is not normal (although not very elevated either, rather indeterminate range at 0.2). I will trend his procalcitonin and other inflammatory markers. He is already on high dose statins and fully anticoagulated w/ apixaban. I and nursing and RT have spoken w/ him on the importance of practicing proning, although I doubt that he will comply (2) Atrial fibrillation and flutter: Status: Chronic Assessment and plan: Continue monitoring with treatment and continue Eliquis. (3) Diabetes mellitus: Status: Chronic Assessment and plan: diabetic/ CHF diet; hold his oral metformin/sitagliptin; cover w/ novolog per sliding scale and carb coverage; add NPH to cover his decadron (i.e. give 0.5 units NPH per 1 mg prednisone equivalent, this works out to be 20 units NPH for 6 mg decadron). I have also added his Lantus 20 units at HS. When he comes off the decadron then the NPH can be stopped. Qualifiers: Diabetes mellitus type: type 2 Diabetes mellitus senior living insulin use: with senior living use Diabetes mellitus complication status: with other specified complication Qualified Code(s): E11.69 - Type 2 diabetes mellitus with other specified complication; Z79.4 - [facility] (current) use of insulin (4) CHF (congestive heart failure): Status: Chronic Assessment and plan: patient had been started on lasix 20 mg daily by the ER about one week earlier; however, unclear as to whether or not he was taking this. I will put him on lasix 20 mg bid and monitor his U.O. and labs and get echo tomorrow. I checked and found no echo on file although one was ordered in April 2017 by Suly Espinal but apparently was never done; so I do not think that CHF is actually a new diagnosis by the ER. Qualifiers: Heart failure type: unspecified Heart failure chronicity: acute on chronic Qualified Code(s): I50.9 - Heart failure, unspecified Subjective Subjective Interval history since last seen: 75 yr old male w/ chronic atrial fib, anticoagulated w/ apixaban, DM type 2 on insulin (Lantus) and metformin/sitagliptin, CAD, CHF, HTN who is unvaccinated for COVID-19 and presented w/ chest pain, dyspnea and bilateral lower extremity edema. He had been seen in the ER a week earlier and diagnosed w/ CHF and bilateral pneumonia and advised admission but declined admission. He had tested positive for COVID-19 couple weeks ago. He was on Augmentin twice daily for his pneumonia and had been prescribed lasix for his CHF. On evaluation in the ER he was found to be hypoxemic w/ SPO2 84 to 89% on 4 LPM and came up to 92% on oxymask and was found to have elevated inflammatory markers including CRP 18.4, BNP 4900, ferritin 735, procalcitonin 0.2, neg. troponin <0.05 x 2, wbc 12,300, and CT scan chest showing extensive bilateral pulmonary opacities involving all lobes w/ ground glass and consolidative changes and small bilateral pleural effusions; no pulmonary embolism. Patient was started on iv decadron and remdesivir last night. I have added baricitinib to his regimen as he has had increasing oxygen requirments and now is on high flow nasal cannula at 30 LPM. Exam Narrative Exam Narrative: Elderly gentleman who is able to speak in complete sentences and is alert/oriented HEENT is remarkable for perioral cyanosis Lungs: bibasilar rales; no wheezes or rhonchi Heart: irregularly irregular rhythm but controlled heart rate; no murmur Legs: 1+ pitting bilateral leg edema; no calf tenderness Objective Last Vital Signs Temp 36.0 C L 11/17/20 09:02 Pulse 77 11/17/20 09:02 Resp 20 11/17/20 09:02 BP 128/66 11/17/20 09:02 Pulse Ox 86 L 11/17/20 09:02 Laboratory Results - last 24 hr 11/16/20 11/16/20 11/16/20 19:20 19:20 19:20 WBC 12.36 H RBC 3.91 L Hgb 12.0 L Hct 35.9 L MCV 91.8 MCH 30.7 MCHC 33.4 RDW 13.8 Plt Count 212 MPV 9.6 Immature Gran % 0.7 Neutrophils % 90.5 Lymphocytes % 3.4 Monocytes % 5.3 Eosinophils % 0.0 Basophils % 0.1 Nucleated RBC % 0 Absolute Neutrophils 11.19 H Absolute Lymphocytes 0.42 L Absolute Monocytes 0.66 Absolute Eosinophils 0.00 Absolute Basophils 0.01 PT INR D-Dimer Sodium 133 L Potassium 3.8 Chloride 98 Carbon Dioxide 28.5 Anion Gap 6.5 BUN 15 Creatinine 1.0 Estimated GFR/1.73 m2 >= 60.00 Glucose 214 H Calcium 8.3 L Magnesium 1.4 L Ferritin Total Bilirubin 1.2 H AST 55 H ALT 60 Alkaline Phosphatase 111 Lactate Dehydrogenase Troponin I < 0.05 C-Reactive Protein NT-Pro-B Natriuret Pep 4966 H Total Protein 6.6 Albumin 1.8 L Procalcitonin COVID-19 Source SARS-CoV-2 (PCR) 11/16/20 11/16/20 11/16/20 19:20 19:20 19:20 WBC RBC Hgb Hct MCV MCH MCHC RDW Plt Count MPV Immature Gran % Neutrophils % Lymphocytes % Monocytes % Eosinophils % Basophils % Nucleated RBC % Absolute Neutrophils Absolute Lymphocytes Absolute Monocytes Absolute Eosinophils Absolute Basophils PT 13.5 H INR 1.3 H D-Dimer Sodium Potassium Chloride Carbon Dioxide Anion Gap BUN Creatinine Estimated GFR/1.73 m2 Glucose Calcium Magnesium Ferritin 735 H Total Bilirubin AST ALT Alkaline Phosphatase Lactate Dehydrogenase Troponin I C-Reactive Protein 18.43 H NT-Pro-B Natriuret Pep Total Protein Albumin Procalcitonin COVID-19 Source Nasal/Nares SARS-CoV-2 (PCR) POSITIVE A* 11/16/20 11/16/20 11/16/20 19:20 19:20 22:05 WBC RBC Hgb Hct MCV MCH MCHC RDW Plt Count MPV Immature Gran % Neutrophils % Lymphocytes % Monocytes % Eosinophils % Basophils % Nucleated RBC % Absolute Neutrophils Absolute Lymphocytes Absolute Monocytes Absolute Eosinophils Absolute Basophils PT INR D-Dimer 7064 H Sodium Potassium Chloride Carbon Dioxide Anion Gap BUN Creatinine Estimated GFR/1.73 m2 Glucose Calcium Magnesium Ferritin Total Bilirubin AST ALT Alkaline Phosphatase Lactate Dehydrogenase Troponin I < 0.05 C-Reactive Protein NT-Pro-B Natriuret Pep Total Protein Albumin Procalcitonin 0.2 COVID-19 Source SARS-CoV-2 (PCR) 11/17/20 11/17/20 11/17/20 07:16 07:16 07:16 WBC 11.01 H RBC 4.03 L Hgb 12.3 L Hct 36.8 L MCV 91.3 MCH 30.5 MCHC 33.4 RDW 13.5 Plt Count 201 MPV 9.4 Immature Gran % 0.7 Neutrophils % 91.0 Lymphocytes % 4.1 Monocytes % 4.1 Eosinophils % 0.0 Basophils % 0.1 Nucleated RBC % 0 Absolute Neutrophils 10.02 H Absolute Lymphocytes 0.45 L Absolute Monocytes 0.45 Absolute Eosinophils 0.00 Absolute Basophils 0.01 PT INR D-Dimer > 7500 H Sodium 130 L Potassium 3.9 Chloride 96 L Carbon Dioxide 28.3 Anion Gap 5.7 BUN 17 Creatinine 1.1 Estimated GFR/1.73 m2 >= 60.00 Glucose 297 H Calcium 7.8 L Magnesium Ferritin 1633 H Total Bilirubin 0.9 AST 60 H ALT 62 Alkaline Phosphatase 124 H Lactate Dehydrogenase 620 H Troponin I C-Reactive Protein 19.46 H NT-Pro-B Natriuret Pep Total Protein 6.9 Albumin 1.8 L Procalcitonin COVID-19 Source SARS-CoV-2 (PCR)
[2020-11-17] MEDS: Insulin NPH-Human 300 UNITS/3 ML PEN 20 UNIT SC (13:30)
[2020-11-17] MEDS: cefTRIAXone 1 GM/50 ML BAG IVPB (13:33)
[2020-11-17] MEDS: Tamsulosin 0.4 MG CAPCR 0.8 MG PO (17:21)
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
[2020-11-17] MEDS: Furosemide 20 MG TAB PO (19:48)
[2020-11-17] MEDS: Doxycycline Hyclate 100 MG CAP PO (19:48)
[2020-11-17] MEDS: Baclofen 10 MG TAB 5 MG PO (19:49)
[2020-11-17] MEDS: Insulin Glargine 300 UNITS/3 ML PEN 20 UNITS SC (22:13)
[2020-11-18] VITALS (9 sets, daily range): BP systolic 105–129; BP diastolic 59–75; PULSE 57–89; RESP 16–20; TEMP 36–36.3; O2SAT 83–98
--- NOTE | 2020-11-18 08:00 | DI.US_ITS ---
APPROVED REPORT EXAM: Comprehensive 2D, Doppler, and color-flow Echocardiogram Patient Location: In-Patient Room/Bed: 216 Outreach Director: Andreina Antonio RDCS (AE) Indications: New onset CHF Other Information Study Quality: Adequate. Technically limited study due to exam done supine. Conclusion Normal left ventricular wall thickness and chamber size. Estimated ejection fraction is 55 to 60%. The anterior wall and septum are hypokinetic Normal right ventricular size and systolic function The left atrium is mildly dilated. The right atrium is normal in size Mildly sclerotic trileaflet aortic valve without stenosis or regurgitation Structurally normal mitral valve with mild regurgitation Structurally normal tricuspid valve with mild regurgitation. Estimated right ventricular systolic pr essure is 36.8 mmHg Structurally normal pulmonic valve with mild regurgitation Wall motion Left Ventricle The left ventricle is normal size. The left ventricular systolic function is normal. The left ventric ular ejection fraction is within the normal range. There is normal left ventricular wall thickness. R egional wall motion abnormalities are noted. There is no ventricular septal defect visualized. LVEF i s 55-60%. Right Ventricle The right ventricle is normal size. The right ventricular systolic function is normal. The RVSP is 36 .8 mmHg. Atria Left atrium is mildly dilated. The right atrium size is normal. The interatrial septum is intact with no evidence for an atrial septal defect. Aortic Valve The Aortic valve is mildly sclerotic. Aortic valve is trileaflet. There is no aortic valvular stenosi s. No aortic regurgitation is present. Mitral Valve The mitral valve is normal in structure. No evidence of mitral valve stenosis. Mild mitral regurgitat ion. Tricuspid Valve The tricuspid valve is normal in structure. There is no tricuspid valve stenosis. Mild tricuspid regu rgitation. Pulmonic Valve The pulmonary valve is normal in structure. There is no pulmonic valvular stenosis. Mild pulmonic reg urgitation. Great Vessels The aortic root is normal in size. The ascending aorta is normal in size. Aortic arch is not well vis ualized. IVC is normal in size and collapses >50% with inspiration. Pericardium There is no pericardial effusion. 2D Dimensions IVSD d PLAX 0.92 cm M: 0.6-1.2 LV Vol A2C d MOD 122.0 mL LVPW d PLAX 0.93 cm M: 0.6 - 1.2 LV Vol A4C d MOD 100.2 mL LVID d PLAX 4.77 cm M: 4.2 - 5.8 LA vol/ BSA A2C s A-L 58.6 mL/m2 LVDs 3.40 cm M: 2.5 - 4.0 LA vol/ BSA A4C s A-L 45.5 mL/m2 Ao Root d 3.00 cm M: 3.1 - 3.7 LA Vol/ BSA Biplane s A-L 51.9 mL/m2 RA Area A4C 18.60 cm2 LA Area A4C s MOD 25.79 cm2 RA Vol/ BSA A4C s A-L 25.7 mL/m2 LA Area A2C s MOD 29.12 cm2 Ao Asc Diam d 3.31 cm M: 2.6 - 3.4 LV EF A4C MOD 56.3 % LV EF Teichholz 55.3 % LV EF A2C MOD 56.3 % LVEF (Osuna's) 56.67 % M: 52 - 72 LV EF Biplane MOD 56.7 % LV Volume 87.50 mL M: 62 - 150 SV 64.48 mL LV Volume Index 47.04 mL/m2 M: 34 - 74 SV Index 34.69 mL/m2 LV Vol Biplane MOD 113.8 mL FS 28.70 % M-Mode TAPSE 1.27 cm (M/F) >1.7 LV Diastology MV E' medial 0.108 (>0.07 m/s) MV E Vmax 1.26 (0.4-1.3 m/s) LV E/e MED 11.75 (<14) MV E' lateral 0.076 (>0.1 m/s) LV E/e LAT 16.55 (<14) MV E/E' medial 11.76 MV E/E' lateral 16.58 Aortic Valve LVOT Area 3.15 cm2 AoV Area Vmax 2.51 cm2 LVOT Vmax 0.87 m/s AoV Area/ BSA (Vmax) 1.35 cm2/m2 LVOT Mean Shahab. 0.61 m/s SEE Mean Shahab. 2.26 cm2 LVOT Peak Grad 3.0 mmHg SEE Mean Shahab. Index 1.22 cm2/m2 LVOT Mean Grad 1.7 mmHg LVOT VTI 0.165 m LVOT Diam s 2.00 cm AoV Vmax 1.09 m/s Velocity Ratio 0.79 AoV Mean Shahab. 0.85 m/s AoV Peak Grad 4.7 mmHg LVOT SV 51.92 mL AoV Mean Grad 3.2 mmHg AoV VTI 0.237 m AoV Area VTI 2.20 cm2 AoV Area/ BSA (VTI) 1.18 cm/m2 Mitral Valve MV DT 193 (160-240 msec) MR Vmax 4.11 m/s MV PHT 56 msec MR VTI 1.418 m MV Area PHT 3.93 cm2 MR Peak Grad 67.5 mmHg MV VTI 0.306 m MR Mean Grad 49.2 mmHg MV VTI Annulus 0.315 m MR PISA Radius 0.53 cm MV Area VTI 1.74 (4.0-6.0 cm2) MR EROA 0.15 cm2 MR Aliasing Velocity 0.35 m/s MR PISA 1.75 cm2 Pulmonary Valve PV Vmax 0.80 (0.5-1.5 m/s) RVOT Peak Gr. 1.61 mmHg PV Peak Grad 2.6 mmHg RVOT Mean Gr. 0.85 mmHg PV Mean Grad 1.6 mmHg RVOT VTI 0.138 m PV VTI 0.161 m RVOT Vmax 0.63 m/s Tricuspid Valve TR Peak Grad 33.8 mmHg TR Vmax 2.91 m/s RA Pressure 3.00 mmHg RVSP (TR) 36.8 mmHg
[2020-11-18 08:04] LABS: Abs Immature Grans 0.08 10^3/uL (0.0-0.06); Absolute Lymphocyte Count 1.02 10^3/uL (1.2-3.4); Absolute Monocyte Count 0.46 10^3/uL (0.1-0.8); Absolute Neutrophil Count 8.47 10^3/uL (1.2-6.7); HCT 33.3 % (40.0-50.0); HGB 11.4 g/dL (13.5-17.5); Immature Grans % 0.8; Lymphocytes % 10.2; MCH 30.6 pg (27.0-33.0); MCHC 34.2 % (32.0-36.0); MCV 89.3 fL (80-95); MPV 9.8 fL (8.0-11.0); Monocytes % 4.6; Neutrophils % 84.4; Nucleated RBC 0 %; RBC 3.73 10^6/uL (4.36-5.78); RDW 13.3 % (11.8-14.1); RDW-SD 43.7 fL; WBC 10.03 10^3/uL (4.4-10.8)
[2020-11-18 08:22] LABS: Burr Cells (echinocyte) 2+; Diff Comment Agrees w/ Instrument; Poikilocytes 2+; Polychromasia Present
[2020-11-18 08:23] LABS: Platelet Count 229 10^3/uL (130-400)
[2020-11-18 08:44] LABS: ALT 78 U/L (16-63); AST 78 U/L (15-37); Albumin 1.6 g/dL (3.4-5.0); Alkaline Phosphatase 99 U/L (46-116); BUN 26 mg/dL (7-18); Bilirubin, Total 0.6 mg/dL (0.2-1.0); CREATININE 0.8 mg/dL (0.70-1.30); Chloride 100 mmol/L (98-107); Glucose 128 mg/dL (74-106); Potassium 3.9 mmol/L (3.5-5.1); Sodium 133 mmol/L (136-145)
[2020-11-18 08:46] LABS: D-Dimer 7333 ng/mlFEU (<500)
[2020-11-18 08:50] LABS: Ferritin > 2000 ng/mL (26-388)
[2020-11-18 09:16] LABS: C-Reactive Protein 11.08 mg/dL (0.0-0.3); LDH 432 U/L (85-227)
[2020-11-18] MEDS: Atorvastatin 40 MG TAB 80 MG PO ×2 (09:19→20:42)
[2020-11-18] MEDS: Finasteride 5 MG TAB PO (09:19)
[2020-11-18] MEDS: Furosemide 20 MG TAB PO (09:19)
[2020-11-18] MEDS: Apixaban 5 MG TAB PO ×2 (09:19→20:42)
[2020-11-18] MEDS: Doxycycline Hyclate 100 MG CAP PO ×2 (09:19→20:42)
[2020-11-18] MEDS: M 300 MG PO (09:19)
[2020-11-18] MEDS: Potassium Chloride 20 MEQ TABCR PO (09:19)
[2020-11-18] MEDS: Cetirizine 10 MG TAB PO (09:20)
[2020-11-18] MEDS: amLODIPine 2.5 MG TAB PO (09:20)
[2020-11-18] MEDS: Metoprolol CR 25 MG TABCR PO (09:20)
[2020-11-18] MEDS: Insulin NPH-Human 300 UNITS/3 ML PEN 20 UNIT SC (09:20)
[2020-11-18] MEDS: Loratidine 10 MG TAB PO (09:20)
[2020-11-18] MEDS: Dexamethasone 10 MG/ML VIAL 6 MG IVP (09:23)
[2020-11-18] MEDS: Normal Saline Flush 10 ML SYR IVP (09:24)
--- NOTE | 2020-11-18 09:26 | PDOC.CMPRO ---
- If Service Date Differs Date of service: 11/18/20 Time of Service: 09:26 Care Management Progress Note // S/O:Segun remains on isolation for Covid pneumonia. CM was able to speak to him on the phone. he was pleasant and agreeable to conversation. Segun stated that he is feeling better but is still not ready to go home. CM reassured him that he is not ready for discharge and that we will continue to care for him.Segun remains afebrile. He is on high flow oxygen at 40L/min and is saturating in the upper 80's to low 90's. Per EKG today he is in atrial fibrillation with a ventricular rate between 62-96. Segun did inform CM that he needs a shave with his electric razer. He stated that he does not know his caregivers phone number. CM was able to provide him with the number and he stated that he will call her and request that she bring in his razer. A: Segun is a 75 year old man admitted on 11/16/20 with Covid Pneumonia P:Anticipate Segun will be discharged home when medically cleared by provider. He will follow up with his PCP, community therapist and discharge plan of care as instructed and will resume RN services. He will be driven home by Margaux, his home provider, via private vehicle when ready. CM will continue to follow.
--- NOTE | 2020-11-18 09:30 | RT.EKG_ITS ---
APPROVED REPORT Exam: Resting ECG Reason for Exam: chest pain Patient Location: I HR:75 bpm ECG Measurements Heart Rate 75 AXIS AL [id number] P [id number] QRSd 82 QRS 10 QT 384 T 104 QTc 431 Conclusion Atrial fibrillation...V-rate 62- 96, irreg A-activity Anterior infarct, old...Q >40mS, abnormal ST-T, V2-V5
[2020-11-18 09:55] LABS: Troponin I < 0.05 ng/mL (<0.06)
[2020-11-18] MEDS: Insulin Aspart 300 UNITS/3 ML PEN SC ×4 (10:20→18:36)
[2020-11-18] MEDS: cefTRIAXone 1 GM/50 ML BAG IVPB (12:30)
--- NOTE | 2020-11-18 13:44 | W.INDIABCONS ---
Date of service: 11/18/20 Time of Service: 13:44 Diabetes Inpatient Consult DESCRIPTION/ASSESSMENT: Acknowledge consult for diabetes. Unable to meet with pt. at this time due to Covid status. Pt. is familiar to diabetes educators here however. Getting insulin correction as well as mealtime insulin. Blood sugars were above target on admission but are now at target. CHO counting nutrition therapy. Variable PO intake. BMI is 24 kg/m2 which is WNL. INTERVENTION: CHO counting nutrition therapy. PLAN: Will continue to monitor PO, labs, and weight. Will evaluate nutrition,diabetes care plan ongoing and adjust as needed. Time Spent in Nutritional Counseling and Treatment: 0
[2020-11-18] MEDS: Tamsulosin 0.4 MG CAPCR 0.8 MG PO (17:30)
[2020-11-18] MEDS: chlorproMAZINE 25 MG TAB PO ×2 (18:48→20:43)
--- NOTE | 2020-11-18 19:36 | W.PM.PROGNOT ---
Date of Service Date of service: 11/18/20 Time of Service: 16:30 Assessment and Plan Assessment and plan (1) Pneumonia due to COVID-19 virus: Status: Acute Assessment and plan: continue baricitinib, remdesevir, decadron; wean FIO2 as tolerated. continue Rocephin and doxycycline and pulmonary IS and acapella. (2) Atrial fibrillation and flutter: Status: Chronic Assessment and plan: Continue monitoring with treatment and continue Eliquis. (3) Diabetes mellitus: Status: Chronic Assessment and plan: diabetic/ CHF diet; hold his oral metformin/sitagliptin; cover w/ novolog per sliding scale and carb coverage; add NPH to cover his decadron (i.e. give 0.5 units NPH per 1 mg prednisone equivalent, this works out to be 20 units NPH for 6 mg decadron). I have also added his Lantus 20 units at HS. When he comes off the decadron then the NPH can be stopped. Blood glucose well controlled running in the 120's to 170's. Will decrease his Lantus to 15 units and reduce his SSI to moderate dose. cont. CHO coverage and NPH (although will reduce this slightly to 15 units to cover the decadron). Qualifiers: Diabetes mellitus complication status: with other specified complication Diabetes mellitus continuous churn buttermaker insulin use: with residential use Diabetes mellitus type: type 2 Qualified Code(s): E11.69 - Type 2 diabetes mellitus with other specified complication; Z79.4 - superintendent terminal (current) use of insulin (4) CHF (congestive heart failure): Status: Chronic Assessment and plan: Hold lasix. His BUN is rising to 26 while creatinine is stable at 0.8. Echo shows normal LVEF 55 TO 60% but hypokinetic AW and septal wall. Qualifiers: Heart failure chronicity: acute on chronic Heart failure type: unspecified Qualified Code(s): I50.9 - Heart failure, unspecified Subjective Subjective Interval history since last seen: Patient remains on HFNC at 40 LPM however his SPO2 per my check while I was in the room using handheld Ozzie pulse oximeter was 98 to 99%. He has a nonproductive cough, dyspnea is better today. he has not been compliant in performing proning or shifting from side to side when he is in bed. He tends to lie on his back but in the upright position. He is afebrile. He remains on decadron 6 mg IVP daily, remdesevir 100 mg daily (today is day #3 of 5 (including initial dose of 200 mg given in the ER). He is on baricitinib 4 mg po daily. He denies any nausea or vomiting or abdominal pains and no CP. Exam Narrative Exam Narrative: Elderly male sitting up in bed upright; alert/oriented to person/place Lungs: bibasilar rales, no wheezing or rhonchi Heart: irregularly irregular Abdomen: soft, nontender, nondistended Extremities: no edema or tenderness; no cyanosis. feet/legs warm and dry Objective Last Vital Signs Temp 36.3 C L 11/18/20 17:07 Pulse 70 11/18/20 17:07 Resp 16 11/18/20 17:07 BP 120/70 11/18/20 17:07 Pulse Ox 98 11/18/20 17:07 Laboratory Results - last 24 hr 11/18/20 11/18/20 11/18/20 07:11 07:11 07:11 WBC 10.03 RBC 3.73 L Hgb 11.4 L Hct 33.3 L MCV 89.3 MCH 30.6 MCHC 34.2 RDW 13.3 Plt Count 229 MPV 9.8 Immature Gran % 0.8 Neutrophils % 84.4 Lymphocytes % 10.2 Monocytes % 4.6 Eosinophils % 0.0 Basophils % 0.0 Nucleated RBC % 0 Absolute Neutrophils 8.47 H Absolute Lymphocytes 1.02 L Absolute Monocytes 0.46 Absolute Eosinophils 0.00 Absolute Basophils 0.00 RBC Morphology See Below Polychromasia Present Poikilocytosis 2+ [place] Cells/Echinocytes 2+ D-Dimer 7333 H Sodium 133 L Potassium 3.9 Chloride 100 Carbon Dioxide 25.0 Anion Gap 8.0 BUN 26 H D Creatinine 0.8 Estimated GFR/1.73 m2 >= 60.00 Glucose 128 H D Calcium 8.0 L Ferritin > 2000 H Total Bilirubin 0.6 AST 78 H ALT 78 H Alkaline Phosphatase 99 Lactate Dehydrogenase 432 H Troponin I C-Reactive Protein 11.08 H Total Protein 6.0 L Albumin 1.6 L Patient ABO/Rh Antibody Screen 11/18/20 11/18/20 07:11 07:11 WBC RBC Hgb Hct MCV MCH MCHC RDW Plt Count MPV Immature Gran % Neutrophils % Lymphocytes % Monocytes % Eosinophils % Basophils % Nucleated RBC % Absolute Neutrophils Absolute Lymphocytes Absolute Monocytes Absolute Eosinophils Absolute Basophils RBC Morphology Polychromasia Poikilocytosis [place] Cells/Echinocytes D-Dimer Sodium Potassium Chloride Carbon Dioxide Anion Gap BUN Creatinine Estimated GFR/1.73 m2 Glucose Calcium Ferritin Total Bilirubin AST ALT Alkaline Phosphatase Lactate Dehydrogenase Troponin I < 0.05 C-Reactive Protein Total Protein Albumin Patient ABO/Rh O Positive Antibody Screen NEGATIVE
[2020-11-18] MEDS: Mylanta Suspension 30 ML CUP PO (20:48)
[2020-11-18] MEDS: Insulin Glargine 300 UNITS/3 ML PEN 15 UNITS SC (23:22)
[2020-11-19] VITALS (12 sets, daily range): BP systolic 108–130; BP diastolic 62–86; PULSE 57–84; RESP 16–20; TEMP 35.6–36.5; O2SAT 90–96
[2020-11-19 08:16] LABS: HCT 33.8 % (40.0-50.0); HGB 11.6 g/dL (13.5-17.5); MCH 30.5 pg (27.0-33.0); MCHC 34.3 % (32.0-36.0); MCV 88.9 fL (80-95); MPV 9.4 fL (8.0-11.0); Nucleated RBC 0 %; Platelet Count 198 10^3/uL (130-400); RDW 13.4 % (11.8-14.1); RDW-SD 43.7 fL; WBC 11.27 10^3/uL (4.4-10.8)
[2020-11-19 08:34] LABS: Absolute Lymphocyte Count 0.79 10^3/uL (1.2-3.4); Absolute Monocyte Count 0.34 10^3/uL (0.1-0.8); Absolute Neutrophil Count 10.14 10^3/uL (1.2-6.7); Acanthocytes 3+; Diff Comment Manual Differential
[2020-11-19] MEDS: Normal Saline Flush 10 ML SYR IVP ×2 (08:43→19:27)
[2020-11-19] MEDS: Potassium Chloride 20 MEQ TABCR PO (08:44)
[2020-11-19] MEDS: M 300 MG PO (08:44)
[2020-11-19] MEDS: Dexamethasone 10 MG/ML VIAL 6 MG IVP (08:44)
[2020-11-19] MEDS: Loratidine 10 MG TAB PO (08:45)
[2020-11-19] MEDS: Cetirizine 10 MG TAB PO (08:45)
[2020-11-19] MEDS: Finasteride 5 MG TAB PO (08:45)
[2020-11-19] MEDS: amLODIPine 2.5 MG TAB PO (08:45)
[2020-11-19] MEDS: Apixaban 5 MG TAB PO ×2 (08:45→19:29)
[2020-11-19] MEDS: Metoprolol CR 25 MG TABCR PO (08:45)
[2020-11-19] MEDS: Doxycycline Hyclate 100 MG CAP PO ×2 (08:45→21:37)
[2020-11-19] MEDS: Atorvastatin 40 MG TAB 80 MG PO (08:45)
[2020-11-19 08:50] LABS: D-Dimer > 7500 ng/mlFEU (<500)
[2020-11-19 09:10] LABS: Procalcitonin 0.2 ng/mL
[2020-11-19 09:27] LABS: ALT 90 U/L (16-63); AST 82 U/L (15-37); Albumin 1.7 g/dL (3.4-5.0); Alkaline Phosphatase 111 U/L (46-116); Anion Gap 6.6 mmol/L (3-11); BUN 31 mg/dL (7-18); Bilirubin, Total 0.5 mg/dL (0.2-1.0); CO2 28.4 mmol/L (21.0-32.0); CREATININE 0.9 mg/dL (0.70-1.30); Calcium 8.1 mg/dL (8.5-10.1); Chloride 102 mmol/L (98-107); Glucose 107 mg/dL (74-106); Potassium 4.1 mmol/L (3.5-5.1); Sodium 137 mmol/L (136-145); Total Protein 6.2 g/dL (6.4-8.2)
[2020-11-19 09:28] LABS: Ferritin > 2000 ng/mL (26-388)
[2020-11-19] MEDS: Insulin NPH-Human 300 UNITS/3 ML PEN 20 UNIT SC (09:29)
[2020-11-19] MEDS: Insulin Aspart 300 UNITS/3 ML PEN SC ×4 (09:29→17:07)
[2020-11-19 09:38] LABS: C-Reactive Protein 6.49 mg/dL (0.0-0.3); LDH 483 U/L (85-227)
--- NOTE | 2020-11-19 12:15 | CMPROGNOTE_ITS ---
Care Management Progress Note S/O: Segun continues to be closely monitored and treated for Covid Pneumonia. He remains on Hi Flow oxygen which will be weaned as tolerated, per MD. No change to overall plan. CM continues to follow. A: : Segun is a 75 year old male admitted to [facility] on 11/16/20 with Covid Pneumonia P: Segun will be discharged home when medically cleared by provider. He will follow up with his PCP, community therapist and discharge plan of care as instructed and will resume RN services. He will be driven home by Margaux, his home provider, via private vehicle when ready. CM will continue to follow.
--- NOTE | 2020-11-19 12:30 | PGE_ITS ---
Date of Service Date of service: 11/19/20 Time of Service: 12:30 Assessment and Plan Assessment and plan (1) Pneumonia due to COVID-19 virus: Status: Acute Assessment and plan: continue baricitinib, remdesevir, decadron; wean FIO2 as tolerated. continue Rocephin and doxycycline and pulmonary IS and acapella. (2) Atrial fibrillation and flutter: Status: Chronic Assessment and plan: Continue monitoring with treatment and continue Eliquis. (3) Diabetes mellitus: Status: Chronic Assessment and plan: diabetic/ CHF diet; hold his oral metformin/sitagliptin; cover w/ novolog per sliding scale and carb coverage; NPH (given for coverage of steroids) and Lantus dose both were reduced yesterday and his glucose is better today. FBS 107 and 184 at lunch Qualifiers: Diabetes mellitus complication status: with other specified complication Diabetes mellitus watermelon inspector insulin use: with watermelon inspector use Diabetes mellitus type: type 2 Qualified Code(s): E11.69 - Type 2 diabetes mellitus with other specified complication; Z79.4 - intermediate teacher (current) use of insulin (4) CHF (congestive heart failure): Status: Chronic Assessment and plan: resume daily lasix 20 mg. Given his hypokinetic anterior and septal wall; patient should undergo stress MPI on outpatient followup. Qualifiers: Heart failure chronicity: acute on chronic Heart failure type: unspecified Qualified Code(s): I50.9 - Heart failure, unspecified Subjective Subjective Interval history since last seen: Patient states that he is starting to feel better. Hiccups are improved today. Has not needed any thorazine today. Cough is getting productive. He remains afebrile. Inflammatory markers are still elevated (LDH 483, ferritin >2000, AST 82/ALT 90, procalcitonin 0.2). He is complaining of all the blood work. I think that some of the inflammatory markers are duplication. I do not feel that we need to continue to monitor ferritin, LDH. He still should have CMP and CBC monitored and procalcitonin repeated in couple days. He remains on Remdesivir d# 4/5. He is on decadron 6 mg daily and baricitinib 4 mg daily (day #3). He is still on HFNC 40 LPM however his SPO2 is 98 to 99%. I spoke w/ his nurse about having RT start to titrate down his FIO2. He remains on Ceftriaxone and Doxycycline (d#3). I can not exclude concommittant bacterial component given he presented w/ leukocytosis and elevated neutrophils and indeterminant procalcitonin and now his cough is becoming more productive. Exam Narrative Exam Narrative: Alert/oriented Lungs: bilateral basilar rales; no rhonchi or wheezing Heart: irregularly irregular but controlled rate Abdomen: soft, nontender Extremities: trace to 1+ edema in legs Objective Last Vital Signs Temp 36 C L 11/19/20 08:36 Pulse 67 11/19/20 08:36 Resp 18 11/19/20 08:36 BP 114/65 11/19/20 08:36 Pulse Ox 94 11/19/20 11:02 Laboratory Results - last 24 hr 11/19/20 11/19/20 11/19/20 07:59 07:59 07:59 WBC 11.27 H RBC 3.80 L Hgb 11.6 L Hct 33.8 L MCV 88.9 MCH 30.5 MCHC 34.3 RDW 13.4 Plt Count 198 MPV 9.4 Immature Gran % 0.0 Neutrophils % 90.0 Lymphocytes % 7.0 Monocytes % 3.0 Eosinophils % 0.0 Basophils % 0.0 Nucleated RBC % 0 Absolute Neutrophils 10.14 H Absolute Lymphocytes 0.79 L Absolute Monocytes 0.34 Absolute Eosinophils 0.00 Absolute Basophils 0.00 RBC Morphology See Below Acanthocytes (Spur) 3+ D-Dimer Sodium 137 Potassium 4.1 Chloride 102 Carbon Dioxide 28.4 Anion Gap 6.6 BUN 31 H Creatinine 0.9 Estimated GFR/1.73 m2 >= 60.00 Glucose 107 H Calcium 8.1 L Ferritin > 2000 H Total Bilirubin 0.5 AST 82 H ALT 90 H Alkaline Phosphatase 111 Lactate Dehydrogenase 483 H C-Reactive Protein 6.49 H Total Protein 6.2 L Albumin 1.7 L Procalcitonin 0.2 11/19/20 07:59 WBC RBC Hgb Hct MCV MCH MCHC RDW Plt Count MPV Immature Gran % Neutrophils % Lymphocytes % Monocytes % Eosinophils % Basophils % Nucleated RBC % Absolute Neutrophils Absolute Lymphocytes Absolute Monocytes Absolute Eosinophils Absolute Basophils RBC Morphology Acanthocytes (Spur) D-Dimer > 7500 H Sodium Potassium Chloride Carbon Dioxide Anion Gap BUN Creatinine Estimated GFR/1.73 m2 Glucose Calcium Ferritin Total Bilirubin AST ALT Alkaline Phosphatase Lactate Dehydrogenase C-Reactive Protein Total Protein Albumin Procalcitonin
[2020-11-19] MEDS: cefTRIAXone 1 GM/50 ML BAG IVPB (12:37)
[2020-11-19] MEDS: Mylanta Suspension 30 ML CUP PO (13:43)
[2020-11-19] MEDS: Tamsulosin 0.4 MG CAPCR 0.8 MG PO (17:12)
[2020-11-19] MEDS: Melatonin 3 MG TAB PO (19:29)
[2020-11-19] MEDS: Magnesium Oxide 400 MG TAB PO (19:29)
[2020-11-19] MEDS: Normal Saline 500 ML 30 ML IV (19:31)
[2020-11-19] MEDS: Insulin Glargine 300 UNITS/3 ML PEN 15 UNITS SC (21:40)
[2020-11-20] VITALS (10 sets, daily range): BP systolic 110–142; BP diastolic 57–72; PULSE 49–74; RESP 16–20; TEMP 32–37.2; O2SAT 90–98
[2020-11-20 07:38] LABS: HCT 34.6 % (40.0-50.0); HGB 11.9 g/dL (13.5-17.5); MCH 31.2 pg (27.0-33.0); MCHC 34.4 % (32.0-36.0); MCV 90.8 fL (80-95); MPV 9.6 fL (8.0-11.0); Nucleated RBC 0 %; Platelet Count 211 10^3/uL (130-400); RBC 3.81 10^6/uL (4.36-5.78); RDW 13.6 % (11.8-14.1); RDW-SD 45.3 fL; WBC 15.46 10^3/uL (4.4-10.8)
[2020-11-20 07:49] LABS: Absolute Lymphocyte Count 1.86 10^3/uL (1.2-3.4); Absolute Monocyte Count 0.62 10^3/uL (0.1-0.8); Absolute Neutrophil Count 12.99 10^3/uL (1.2-6.7)
[2020-11-20 07:50] LABS: Acanthocytes 3+; Diff Comment Manual Differential
[2020-11-20 08:00] LABS: C-Reactive Protein 4.71 mg/dL (0.0-0.3); Magnesium 2.1 mg/dL (1.8-2.4); NT-proBNP 3781 pg/mL (<300)
[2020-11-20 08:06] LABS: ALT 87 U/L (16-63); AST 78 U/L (15-37); Albumin 1.8 g/dL (3.4-5.0); Alkaline Phosphatase 119 U/L (46-116); Anion Gap 6.4 mmol/L (3-11); BUN 31 mg/dL (7-18); Bilirubin, Total 0.5 mg/dL (0.2-1.0); CO2 29.6 mmol/L (21.0-32.0); CREATININE 0.9 mg/dL (0.70-1.30); Calcium 8.3 mg/dL (8.5-10.1); Chloride 104 mmol/L (98-107); Potassium 4.3 mmol/L (3.5-5.1); Sodium 140 mmol/L (136-145)
[2020-11-20 08:11] LABS: Glucose 49 mg/dL (74-106)
[2020-11-20 08:17] LABS: D-Dimer > 7500 ng/mlFEU (<500)
[2020-11-20] MEDS: Furosemide 20 MG TAB PO (08:29)
[2020-11-20] MEDS: Finasteride 5 MG TAB PO (08:29)
[2020-11-20] MEDS: ROSUVASTATIN 20 MG TAB 40 MG PO (08:29)
[2020-11-20] MEDS: Potassium Chloride 20 MEQ TABCR PO (08:29)
[2020-11-20] MEDS: Apixaban 5 MG TAB PO ×2 (08:29→19:33)
[2020-11-20] MEDS: Magnesium Oxide 400 MG TAB PO ×2 (08:29→19:35)
[2020-11-20] MEDS: Loratidine 10 MG TAB PO (08:31)
[2020-11-20] MEDS: Dexamethasone 10 MG/ML VIAL 6 MG IVP (08:31)
[2020-11-20] MEDS: M 300 MG PO (08:31)
[2020-11-20] MEDS: amLODIPine 2.5 MG TAB PO (08:31)
[2020-11-20] MEDS: Cetirizine 10 MG TAB PO (08:31)
[2020-11-20] MEDS: Metoprolol CR 25 MG TABCR PO (08:31)
[2020-11-20 10:20] LABS: BE 3 mmol/L (-2-3); HCO3 25 mmol/L (22-26); pCO2 32 mmHg (35-45); pH 7.51 (7.35-7.45); pO2 83 mmHg (80-105); sO2 97 % (95-98); tCO2 23 mmol/L (23-27)
[2020-11-20 10:23] LABS: FIO2L 40 L; Site Right Radial
[2020-11-20 10:24] LABS: FIO2 55 %
[2020-11-20] MEDS: Doxycycline Hyclate 100 MG CAP PO ×2 (10:38→21:46)
[2020-11-20] MEDS: guaiFENesin 600 MG TABCR PO ×2 (10:38→19:34)
[2020-11-20] MEDS: Cholecalciferol (Vitamin D3) 1,000 UNIT TAB 2000 UNITS PO (11:50)
[2020-11-20] MEDS: cefTRIAXone 1 GM/50 ML BAG IVPB (11:51)
[2020-11-20] MEDS: Normal Saline Flush 10 ML SYR IVP (11:51)
[2020-11-20] MEDS: Insulin Aspart 300 UNITS/3 ML PEN SC ×5 (12:04→21:47)
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
--- NOTE | 2020-11-20 17:56 | CMPROGNOTE_ITS ---
Care Management Progress Note S/O: Segun continues to be closely monitored and treated for Covid Pneumonia. He remains on Hi Flow oxygen which will be weaned as tolerated, per MD. He is refusing to prone and expressing frustration with care needs. No change to overall plan. Palliative consult ordered, CM notified the PC office that Margaux would need to participate. CM continues to follow. A: : Segun is a 75 year old male admitted to [facility] on 11/16/20 with Covid Pneumonia P: Segun will be discharged home when medically cleared by provider. He will follow up with his PCP, community therapist and discharge plan of care as instructed and will resume RN services. He will be driven home by Margaux, his home provider, via private vehicle when ready. CM will continue to follow.
[2020-11-20] MEDS: Tamsulosin 0.4 MG CAPCR 0.8 MG PO (18:00)
--- NOTE | 2020-11-20 18:51 | W.PM.PROGNOT ---
Date of Service Date of service: 11/20/20 Time of Service: 19:07 Assessment and Plan Assessment and plan (1) Pneumonia due to COVID-19 virus: Status: Acute Assessment and plan: With hypoxia and suspected superimposed acute bacterial pneumonia. Not worse - clinically slightly better. Continue baricitinib, remdesevir, decadron Add vitamins, pepcid. Continue humidified heated high flow cannula, wean FIO2 as tolerated. Continue doxy/ceftriaxone. Encourage proning. Continue IS and acapella. Consider pulm c/s. (2) Atrial fibrillation and flutter: Status: Chronic Assessment and plan: Continue monitoring with treatment and continue Eliquis. (3) CHF (congestive heart failure): Status: Chronic Assessment and plan: Preserved EF. Continue PO lasixs. Needs outpatient MPI due to wall motion abnormalities. Qualifiers: Heart failure type: unspecified Heart failure chronicity: acute on chronic Qualified Code(s): I50.9 - Heart failure, unspecified (4) Diabetes mellitus: Status: Chronic Assessment and plan: Back off of insulin as did have a hypoglycemic episode with BG of 49 this morning. Qualifiers: Diabetes mellitus type: type 2 Diabetes mellitus intermediate designer insulin use: with intermediate use Diabetes mellitus complication status: with other specified complication Qualified Code(s): E11.69 - Type 2 diabetes mellitus with other specified complication; Z79.4 - senior care (current) use of insulin (5) Depressive disorder: Status: Chronic Assessment and plan: Continue outpatient therapy. Patient denies SI. Will be speaking to his therapist teodora. (6) DVT prophylaxis: Status: Acute Assessment and plan: On therapeutic apixaban (Afib) (7) Discharge planning issues: Status: Acute Assessment and plan: DNR/DNI Consult palliative care PT consulted. Subjective Subjective Interval history since last seen: Interview is being done over the phone as the patient has remained stable and has COVID-19. I have some ways to go. Breathing is a little bit better. Less coughing now. Getting very depressed. Usually does counseling. His therapist is going to call him teodora. Wants his caregiver to call him. Denies SI. No nausea. BM's a little juicy. I'm still quite weak - using commode, cannot walk to the bathroom on his own. Excited to work with PT. Refuses to lay on his stomach, but will lay on his sides, he states. Exam Narrative Exam Narrative: Assessment is limited due to being done over the phone as the patient has COVID-19. General: Pleasant elderly male who does sound like he is depressed/sad on the phone, but no dyspnea/tachynea heard; appropriate word choice. HEENT: deferred Heart: deferred Lungs: nonlabored breathing; no coughing heard Abdomen: deferred Extremities: deferred. Objective Last Vital Signs Temp 37.0 C 11/20/20 16:45 Pulse 58 L 11/20/20 16:45 Resp 18 11/20/20 16:45 BP 110/62 11/20/20 16:45 Pulse Ox 94 11/20/20 16:45 Laboratory Results - last 24 hr 11/20/20 11/20/20 11/20/20 07:15 07:15 07:15 WBC 15.46 H D RBC 3.81 L Hgb 11.9 L Hct 34.6 L MCV 90.8 MCH 31.2 MCHC 34.4 RDW 13.6 Plt Count 211 MPV 9.6 Immature Gran % 0.0 Neutrophils % 84.0 Lymphocytes % 12.0 Monocytes % 4.0 Eosinophils % 0.0 Basophils % 0.0 Nucleated RBC % 0 Absolute Neutrophils 12.99 H Absolute Lymphocytes 1.86 Absolute Monocytes 0.62 Absolute Eosinophils 0.00 Absolute Basophils 0.00 RBC Morphology See Below Acanthocytes (Spur) 3+ D-Dimer ABG Sample Site ABG pH ABG pCO2 ABG pO2 ABG HCO3 ABG Total CO2 ABG O2 Saturation ABG Base Excess Oxygen Liter Flow FiO2 Sodium 140 Potassium 4.3 Chloride 104 Carbon Dioxide 29.6 Anion Gap 6.4 BUN 31 H Creatinine 0.9 Estimated GFR/1.73 m2 >= 60.00 Glucose 49 L* D Calcium 8.3 L Magnesium 2.1 Total Bilirubin 0.5 AST 78 H ALT 87 H Alkaline Phosphatase 119 H C-Reactive Protein 4.71 H NT-Pro-B Natriuret Pep 3781 H Total Protein 6.0 L Albumin 1.8 L 11/20/20 11/20/20 07:15 10:10 WBC RBC Hgb Hct MCV MCH MCHC RDW Plt Count MPV Immature Gran % Neutrophils % Lymphocytes % Monocytes % Eosinophils % Basophils % Nucleated RBC % Absolute Neutrophils Absolute Lymphocytes Absolute Monocytes Absolute Eosinophils Absolute Basophils RBC Morphology Acanthocytes (Spur) D-Dimer > 7500 H ABG Sample Site Right Radial ABG pH 7.51 H ABG pCO2 32 L ABG pO2 83 ABG HCO3 25 ABG Total CO2 23 ABG O2 Saturation 97 ABG Base Excess 3 Oxygen Liter Flow 40 FiO2 55 Sodium Potassium Chloride Carbon Dioxide Anion Gap BUN Creatinine Estimated GFR/1.73 m2 Glucose Calcium Magnesium Total Bilirubin AST ALT Alkaline Phosphatase C-Reactive Protein NT-Pro-B Natriuret Pep Total Protein Albumin
[2020-11-20] MEDS: Acetaminophen 325 MG TAB PO (19:32)
[2020-11-20] MEDS: Famotidine 20 MG TAB PO (19:33)
[2020-11-20] MEDS: Loperamide 2 MG CAP PO (19:34)
[2020-11-20] MEDS: Insulin Glargine 300 UNITS/3 ML PEN 10 UNITS SC (21:47)
[2020-11-21] VITALS (11 sets, daily range): BP systolic 109–146; BP diastolic 61–72; PULSE 47–62; RESP 18–22; TEMP 31–36.7; O2SAT 88–97
--- NOTE | 2020-11-21 00:10 | NUR.NOTE ---
Nursing Note: 7401 Patient called to ask for assistance to return to bed. Patient informed that nurse was at the time occupied with another patient in another room and would be down as soon as possible. Patient called again 10 minutes later speaking abusively to staff and saying that if his nurse did not show up immediately he would move to bed by himself despite the risk of falling. Nurse headed to room at 0013.
[2020-11-21 07:27] LABS: HCT 36.2 % (40.0-50.0); HGB 12.1 g/dL (13.5-17.5); MCH 30.3 pg (27.0-33.0); MCHC 33.4 % (32.0-36.0); MCV 90.5 fL (80-95); MPV 9.4 fL (8.0-11.0); Nucleated RBC 0 %; Platelet Count 179 10^3/uL (130-400); RDW 13.8 % (11.8-14.1); RDW-SD 45.7 fL; WBC 11.93 10^3/uL (4.4-10.8)
[2020-11-21 07:42] LABS: ALT 87 U/L (16-63); AST 60 U/L (15-37); Albumin 1.8 g/dL (3.4-5.0); Alkaline Phosphatase 123 U/L (46-116); Anion Gap 1.5 mmol/L (3-11); BUN 27 mg/dL (7-18); Bilirubin, Total 0.5 mg/dL (0.2-1.0); CO2 31.5 mmol/L (21.0-32.0); CREATININE 0.9 mg/dL (0.70-1.30); Chloride 104 mmol/L (98-107); Glucose 75 mg/dL (74-106); Potassium 4.6 mmol/L (3.5-5.1); Sodium 137 mmol/L (136-145); Total Protein 6.2 g/dL (6.4-8.2)
[2020-11-21 07:55] LABS: Absolute Eosinophil Count 0.12 10^3/uL (0.0-0.7); Absolute Lymphocyte Count 1.67 10^3/uL (1.2-3.4); Absolute Monocyte Count 0.48 10^3/uL (0.1-0.8); Absolute Neutrophil Count 9.66 10^3/uL (1.2-6.7)
[2020-11-21 07:56] LABS: Acanthocytes 3+; Diff Comment Manual Differential; Poikilocytes 2+
[2020-11-21 08:13] LABS: D-Dimer > 7500 ng/mlFEU (<500)
[2020-11-21] MEDS: Mylanta Suspension 30 ML CUP PO (08:41)
[2020-11-21] MEDS: Potassium Chloride 20 MEQ TABCR PO (08:48)
[2020-11-21] MEDS: guaiFENesin 600 MG TABCR PO ×2 (08:48→20:49)
[2020-11-21] MEDS: Cholecalciferol (Vitamin D3) 1,000 UNIT TAB 2000 UNITS PO (08:48)
[2020-11-21] MEDS: Acetaminophen 325 MG TAB PO ×2 (08:49→23:03)
[2020-11-21] MEDS: amLODIPine 2.5 MG TAB PO (08:49)
[2020-11-21] MEDS: Loratidine 10 MG TAB PO (08:49)
[2020-11-21] MEDS: Famotidine 20 MG TAB PO ×2 (08:49→20:49)
[2020-11-21] MEDS: Finasteride 5 MG TAB PO (08:54)
[2020-11-21] MEDS: Apixaban 5 MG TAB PO ×2 (08:54→20:50)
[2020-11-21] MEDS: Cetirizine 10 MG TAB PO (08:54)
[2020-11-21] MEDS: Ascorbic Acid 500 MG TAB 1000 MG PO (08:54)
[2020-11-21] MEDS: ROSUVASTATIN 20 MG TAB 40 MG PO (08:54)
[2020-11-21] MEDS: Metoprolol CR 25 MG TABCR PO (08:54)
[2020-11-21] MEDS: M 300 MG PO (08:54)
[2020-11-21] MEDS: Magnesium Oxide 400 MG TAB PO ×2 (08:54→20:49)
[2020-11-21] MEDS: Furosemide 20 MG TAB PO (08:54)
[2020-11-21] MEDS: Dexamethasone 10 MG/ML VIAL 6 MG IVP (08:55)
[2020-11-21] MEDS: Insulin Aspart 300 UNITS/3 ML PEN SC ×5 (08:57→22:53)
--- NOTE | 2020-11-21 09:19 | NUR.NOTE ---
Nursing Note: Pt is impatient and rude in all interactions this morning. resistive to care and doesn't want nursing to assess him @ this time. many physical complaints such as too many pills to take my stomach is sour my water isn't cold enough, there is ice in the water @ this time. nursing addressed Pt's complaints to the best of their ability.Pt continues to be dissatisfied.
--- NOTE | 2020-11-21 09:27 | CMPROGNOTE_ITS ---
Care Management Progress Note S/O: Segun continues to be closely monitored and treated for Covid Pneumonia. He remains on Hi Flow oxygen which will be weaned as tolerated, per MD-at this time per report, oxygen needs continue to rise. He is refusing to prone and expressing hopelessness and feeling depressed; his therapist is reportedly supporting him from the community. No change to overall plan. Palliative consult ordered, CM notified the PC office that Margaux would need to participate. CM continues to follow. A: : Segun is a 75 year old male admitted to [facility] on 11/16/20 with Covid Pneumonia P: Segun will be discharged home when medically cleared by provider. He will follow up with his PCP, community therapist and discharge plan of care as instr ucted and will resume RN services. He will be driven home by Margaux, his home provider, via private vehicle when ready. CM will continue to follow.
[2020-11-21] MEDS: Doxycycline Hyclate 100 MG CAP PO ×2 (10:41→22:53)
--- NOTE | 2020-11-21 10:52 | PTTR_ITS ---
Date of service: 11/21/20 Time of Service: 10:52 PT Notes Visit Reasons: COVID 19 Pneumonitis with Hypoxemia Physical Therapy Inpatient Treatment Note Date: 11/21/2020 Precautions: Fall. Standard. Activity as tolerated. Subjective: More pleasant today. Wondering when he can be ready to go home. Objective: General Observation: Seated on bedside chair. High flow oxygen supplementation on via NC. Telemetry monitoring in place. Continuous oxygen saturation mon itoring in place. Mental Status: Alert and oriented as to person, place, time, and purpose. Able to pay attention, focus, and respond appropriately. Pain: Denies Bed Mobility/Transfers: Sit to stand supervision Stand to sit supervision Bed to reclining chair supervision Reclining chair to bed supervision THERA EX: Initiated B UE/LE strengthening exercises combining chest expansion exercises with deep breathing using orange thera band. Please see exercise sheet for details. Gait: Instructed patient with level surface ambulation of 10 steps x 3 requiring supervision. Sandy decreased. Step height decreased. Step length decreased. Mild shortness of breath noted. Limited by fatigue. Balance: Static Sitting: Normal 22 Dynamic Sitting: Good Static Standing: Fair Dynamic Standing: Fair Assessment: More cooperative today than yesterday. Able to tolerate more session activities today. DISCHARGE RECOMMENDATIONS: Patient will benefit from home health PT services in order to progress mobility level using least restrictive assistive ambulatory device, assess home safety, identify additional equipment needs, and establish a functional maintenance program that will increase ability of patient to remain at home. TREATMENT CODE/TIME: 31132 x 15 minutes, 61900 x 14 minutes beginning at 10:52 AM.
[2020-11-21] MEDS: cefTRIAXone 1 GM/50 ML BAG IVPB (12:27)
--- NOTE | 2020-11-21 15:31 | PGE_ITS ---
Date of Service Date of service: 11/21/20 Time of Service: 15:31 Assessment and Plan Assessment and plan (1) Pneumonia due to COVID-19 virus: Status: Acute Assessment and plan: With hypoxemia and suspected superimposed acute bacterial pneumonia. Requiring 30L/FiO2 of 42% by humidified heated high flow. Wean as tolerated. Increase dose of lasix as CHF could also be contributing to hypoxemia. Continue baricitinib, remdesevir, decadron Continue Vitamins, pepcid. Continue humidified heated high flow cannula. Continue doxy/ceftriaxone. Encourage proning (patient flatly refuses). Continue IS and acapella. (2) Acute on chronic diastolic (congestive) heart failure: Status: Acute Assessment and plan: Increase lasix. Monitor I/O's and daily weights (3) Acute respiratory failure with hypoxia: Status: Acute Assessment and plan: Multifactorial: due to covid-19 pneumonia, acute exacerbation of diastolic CHF, pulmonary hypertension, atelectasis. As above (4) Atrial fibrillation and flutter: Status: Chronic Assessment and plan: Continue monitoring on tele. Continue Eliquis. Rate controlled. (5) CHF (congestive heart failure): Status: Chronic Assessment and plan: Preserved EF. Continue PO lasixs. Needs outpatient MPI due to wall motion abnormalities. Qualifiers: Heart failure type: unspecified Heart failure chronicity: acute on chronic Qualified Code(s): I50.9 - Heart failure, unspecified (6) Diabetes mellitus: Status: Chronic Assessment and plan: FBG 75 this am. Decrease long acting insulin yet again. Relax meal time coverage. Qualifiers: Diabetes mellitus type: type 2 Diabetes mellitus senior care insulin use: with senior care use Diabetes mellitus complication status: with other specified complication Qualified Code(s): E11.69 - Type 2 diabetes mellitus with other specified complication; Z79.4 - intermediate frame tender (current) use of insulin (7) Depressive disorder: Status: Chronic Assessment and plan: Continue outpatient therapy. Has outpatient psychotherapy (8) DVT prophylaxis: Status: Acute Assessment and plan: On therapeutic apixaban (Afib) (9) Discharge planning issues: Status: Acute Assessment and plan: DNR/DNI Palliative care consulted PT consulted. Subjective Subjective Interval history since last seen: Patient seen in person today. States he is a little short of breath, feels heartburn-type chest discomfort and it is relieved with maalox. Cough is productive, less this afternoon than this morning, he cannot describe the color. Denies dizziness, nausea. States nurses told him that he was not having diarrhea. He is concerned with the swelling in his BLEs (better since admission, but not back to baseline). Feels better since talking to his therapist yesterday. Did not tolerate regular NC - ended up being put back on humidified heated high flow NC. Exam Narrative Exam Narrative: General: Elderly male, A&Ox3, sitting up in a chair on humidified heated high flow NC, irritable HEENT: EOMI, MMM Heart: irregularly irregular rhythm Lungs: Crackles at B bases Abdomen: soft, nontender, nondistended Extremities: 2+ BLE edema, symmetric Objective Last Vital Signs Temp 36.2 C L 11/21/20 14:39 Pulse 55 L 11/21/20 14:39 Resp 22 11/21/20 14:39 BP 109/62 11/21/20 14:39 Pulse Ox 97 11/21/20 14:39 Laboratory Results - last 24 hr 11/21/20 11/21/20 11/21/20 07:14 07:14 07:14 WBC 11.93 H RBC 4.00 L Hgb 12.1 L Hct 36.2 L MCV 90.5 MCH 30.3 MCHC 33.4 RDW 13.8 Plt Count 179 MPV 9.4 Immature Gran % 0.0 Neutrophils % 81.0 Lymphocytes % 14.0 Monocytes % 4.0 Eosinophils % 1.0 Basophils % 0.0 Nucleated RBC % 0 Absolute Neutrophils 9.66 H Absolute Lymphocytes 1.67 Absolute Monocytes 0.48 Absolute Eosinophils 0.12 Absolute Basophils 0.00 RBC Morphology See Below Poikilocytosis 2+ Acanthocytes (Spur) 3+ D-Dimer > 7500 H Sodium 137 Potassium 4.6 Chloride 104 Carbon Dioxide 31.5 Anion Gap 1.5 L BUN 27 H Creatinine 0.9 Estimated GFR/1.73 m2 >= 60.00 Glucose 75 Calcium 8.0 L Total Bilirubin 0.5 AST 60 H ALT 87 H Alkaline Phosphatase 123 H Total Protein 6.2 L Albumin 1.8 L
[2020-11-21] MEDS: Tamsulosin 0.4 MG CAPCR 0.8 MG PO (17:48)
[2020-11-21] MEDS: Furosemide 20 MG/2 ML VIAL IVP (17:49)
[2020-11-21] MEDS: Insulin Glargine 300 UNITS/3 ML PEN 7 UNITS SC (22:54)
[2020-11-21] MEDS: Loperamide 2 MG CAP PO (23:03)
[2020-11-21] MEDS: Melatonin 3 MG TAB PO (23:04)
[2020-11-22] VITALS (19 sets, daily range): BP systolic 110–134; BP diastolic 60–72; PULSE 48–61; RESP 17–20; TEMP 31–36.7; O2SAT 86–96
[2020-11-22 07:55] LABS: Abs Immature Grans 0.24 10^3/uL (0.0-0.06); Absolute Eosinophil Count 0.07 10^3/uL (0.0-0.7); Absolute Lymphocyte Count 1.29 10^3/uL (1.2-3.4); Absolute Monocyte Count 0.42 10^3/uL (0.1-0.8); Absolute Neutrophil Count 10.09 10^3/uL (1.2-6.7); Basophils % 0.2; Eosinophils % 0.6; HCT 38.1 % (40.0-50.0); HGB 12.6 g/dL (13.5-17.5); Lymphocytes % 10.6; MCH 30.2 pg (27.0-33.0); MCHC 33.1 % (32.0-36.0); MCV 91.4 fL (80-95); MPV 10.3 fL (8.0-11.0); Monocytes % 3.5; Neutrophils % 83.1; Nucleated RBC 0 %; Platelet Count 196 10^3/uL (130-400); RBC 4.17 10^6/uL (4.36-5.78); RDW 13.7 % (11.8-14.1); RDW-SD 46.2 fL; WBC 12.14 10^3/uL (4.4-10.8)
[2020-11-22 08:00] LABS: Absolute Basophil Count 0.02 10^3/uL (0.0-0.2)
[2020-11-22 08:12] LABS: ALT 94 U/L (16-63); AST 64 U/L (15-37); Alkaline Phosphatase 135 U/L (46-116); Anion Gap 2.9 mmol/L (3-11); BUN 31 mg/dL (7-18); Bilirubin, Total 0.6 mg/dL (0.2-1.0); CO2 31.1 mmol/L (21.0-32.0); CREATININE 0.9 mg/dL (0.70-1.30); Calcium 8.4 mg/dL (8.5-10.1); Chloride 102 mmol/L (98-107); Glucose 104 mg/dL (74-106); Potassium 4.5 mmol/L (3.5-5.1); Sodium 136 mmol/L (136-145); Total Protein 6.7 g/dL (6.4-8.2)
[2020-11-22 08:31] LABS: D-Dimer > 7500 ng/mlFEU (<500)
[2020-11-22] MEDS: Normal Saline Flush 10 ML SYR IVP ×4 (08:54→21:21)
[2020-11-22] MEDS: guaiFENesin 600 MG TABCR PO ×2 (08:56→21:05)
[2020-11-22] MEDS: Ascorbic Acid 500 MG TAB 1000 MG PO (08:57)
[2020-11-22] MEDS: M 300 MG PO (08:57)
[2020-11-22] MEDS: Magnesium Oxide 400 MG TAB PO ×2 (08:57→21:05)
[2020-11-22] MEDS: Metoprolol CR 25 MG TABCR PO (08:57)
[2020-11-22] MEDS: Apixaban 5 MG TAB PO ×2 (08:57→21:06)
[2020-11-22] MEDS: ROSUVASTATIN 20 MG TAB 40 MG PO (08:58)
[2020-11-22] MEDS: Loratidine 10 MG TAB PO (08:58)
[2020-11-22] MEDS: amLODIPine 2.5 MG TAB PO (08:58)
[2020-11-22] MEDS: Cholecalciferol (Vitamin D3) 1,000 UNIT TAB 2000 UNITS PO (08:58)
[2020-11-22] MEDS: Famotidine 20 MG TAB PO ×2 (08:58→21:05)
[2020-11-22] MEDS: Finasteride 5 MG TAB PO (08:58)
[2020-11-22] MEDS: Furosemide 20 MG/2 ML VIAL IVP ×2 (08:59→16:56)
[2020-11-22] MEDS: Cetirizine 10 MG TAB PO (08:59)
[2020-11-22] MEDS: Insulin Aspart 300 UNITS/3 ML PEN SC ×6 (08:59→21:22)
[2020-11-22] MEDS: Dexamethasone 10 MG/ML VIAL 6 MG IVP (08:59)
[2020-11-22] MEDS: Mylanta Suspension 30 ML CUP PO (09:03)
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
--- NOTE | 2020-11-22 11:20 | PT.INTREAT ---
Date of service: 11/22/20 Time of Service: 11:20 PT Notes Visit Reasons: COVID 19 Pneumonitis with Hypoxemia Physical Therapy Inpatient Treatment Note Date: 11/22/2020 Precautions: Fall. Standard. Activity as tolerated. COVID-[address] Subjective: States that he has not been out of bed until seen by this PT for this session. Unsure of how much he will be able to do. Reported fatigue at end of ambulation activity. Understands that working with PT will increase ability to regain strength and to eventually go back home. Objective: General Observation: Attempting self-transfer from bed to bedside commode when this PT came into room. High flow oxygen supplementation on via NC. Telemetry monitoring in place. Continuous oxygen saturation monitoring in place. Mental Status: Alert and oriented as to person, place, time, and purpose. Able to pay attention, focus, and respond appropriately. Pain: Denies Bed Mobility/Transfers: Sit to stand supervision Stand to sit supervision Bed to reclining chair supervision Reclining chair to bed supervision THERA EX: Continued B UE/LE strengthening exercises combining chest expansion exercises with deep breathing using orange thera band and 3 lb DBs. Please see exercise sheet for details. Gait: Continued with with level surface ambulation of 12 steps x 3 requiring supervision using FWW. Sandy decreased. Step height decreased. Step length decreased. Mild shortness of breath noted. Limited by fatigue. Balance: Static Sitting: Normal Dynamic Sitting: Good Static Standing: Fair Dynamic Standing: Fair Assessment: Continued services will facilitate functional mobility progression using FWW. Patient continues to demonstrate increasing activity tolerance. DISCHARGE RECOMMENDATIONS: Patient will benefit from home health PT services in order to progress mobility level using least restrictive assistive ambulatory device, assess home safety, identify additional equipment needs, and establish a functional maintenance program that will increase ability of patient to remain at home. TREATMENT CODE/TIME: 48551 x 16 minutes, 70481 x 25 minutes beginning at 11:20 AM.
[2020-11-22] MEDS: cefTRIAXone 1 GM/50 ML BAG IVPB (12:28)
[2020-11-22] MEDS: Doxycycline Hyclate 100 MG CAP PO (12:29)
[2020-11-22] MEDS: Acetaminophen 325 MG TAB PO (16:55)
[2020-11-22] MEDS: Loperamide 2 MG CAP PO ×2 (16:57→21:06)
--- NOTE | 2020-11-22 17:48 | CMPROGNOTE_ITS ---
Care Management Progress Note S/O: Segun continues to be closely monitored and treated for Covid Pneumonia. He remains on Hi Flow oxygen which will be weaned as tolerated, per MD. He met with his therapist yesterday and per RN is improving in affect. He participated in proning last night as well. CM spoke with his CM at [facility], Tom who advised he would continue to follow and support Segun's transition back to his [facility] with Margaux. Suly [employer] to outreach to guardian today; awaiting documentation. CM continues to follow. A: : Segun is a 75 year old male admitted to [facility] on 11/16/20 with Covid Pneumonia P: Segun will be discharged home when medically cleared by provider. He will follow up with his PCP, community therapist and discharge plan of care as instructed and will resume RN services. He will be driven home by Margaux, his home provider, via private vehicle when ready. CM will continue to follow.
--- NOTE | 2020-11-22 18:18 | W.PM.PROGNOT ---
Date of Service Date of service: 11/22/20 Time of Service: 18:19 Assessment and Plan Assessment and plan (1) Pneumonia due to COVID-19 virus: Status: Acute Assessment and plan: With hypoxemia and suspected superimposed acute bacterial pneumonia. I do think that fluid overload is contributing to hypoxia, but there is also a question of accuracy of the pulse ox readings. He is now on 3L of O2 by NC. Wean as tolerated. Continue lasix. Continue baricitinib, remdesevir, decadron Continue Vitamins, pepcid. D/c doxycycline/ceftriaxone. Encourage proning (patient flatly refuses). Continue IS and acapella. (2) Acute on chronic diastolic (congestive) heart failure: Status: Acute Assessment and plan: Increase lasix. Monitor I/O's and daily weights (3) Acute respiratory failure with hypoxia: Status: Acute Assessment and plan: Multifactorial: due to covid-19 pneumonia, acute exacerbation of diastolic CHF, pulmonary hypertension, atelectasis. As above (4) Atrial fibrillation and flutter: Status: Chronic Assessment and plan: Continue monitoring on tele. Continue Eliquis but if hematuria is serious, consider holding it. Rate controlled. (5) CHF (congestive heart failure): Status: Chronic Assessment and plan: Preserved EF. IV lasix effective - down more than 2L from yesterday. Continue monitoring I/O's and daily weights. Continue IV lasix. Needs outpatient MPI due to wall motion abnormalities. Qualifiers: Heart failure type: unspecified Heart failure chronicity: acute on chronic Qualified Code(s): I50.9 - Heart failure, unspecified (6) Hematuria: Status: Acute Assessment and plan: check UA. Consider holding anticoagulation if significant. (7) Diabetes mellitus: Status: Chronic Assessment and plan: Decrease long acting insulin Qualifiers: Diabetes mellitus type: type 2 Diabetes mellitus senior living insulin use: with terminal carman use Diabetes mellitus complication status: with other specified complication Qualified Code(s): E11.69 - Type 2 diabetes mellitus with other specified complication; Z79.4 - long term acute care registered nurse (current) use of insulin (8) Depressive disorder: Status: Chronic Assessment and plan: Continue outpatient therapy. Has outpatient psychotherapy (9) DVT prophylaxis: Status: Acute Assessment and plan: On therapeutic apixaban (Afib) Low threshold to stop if hematuria significant. (10) Discharge planning issues: Status: Acute Assessment and plan: DNR/DNI Palliative care consulted PT consulted. Subjective Subjective Interval history since last seen: The patient is reported to be doing somewhat better this afternoon and, because of this improvement, our interview took place over the phone. He did eventually have o2 sats in the 80s this morning requiring FiO2 to be turned up to 60. However, RT found that his pulse ox readings were discordant depending on location (finger, toe, ear) and by this evening the patient is on 3L of O2 by FL. He was seen by pulmonology and by palliative care today. Palliative care: the patient does not want to be transferred to the ICU, would be willing to try CPAP if it were comfortable, but would take it off if it bothered him. DNR/DNI. If he got worse, he would want to be placed on comfort measures. Mr Rodriguez makes it hard to ask questions by taking ownership of the conversation. He does state his breathing is better, but not back to baseline. Complains of frequent defecation today. Just took loperamide. Describes urinary frequency. It is not burning today. Reports mild hematuria. More short of breath earlier, but feels better today. Legs are a little better (less swollen), but not back to baseline. Exam Narrative Exam Narrative: Interview done over the phone due to the patient having COVID-19. General: slightly hard of hearing, slightly tangential male who is speaking fluently in legthy sentences without any evidence of dyspnea/tachypnea, hangs up the phone with me after I answered all his questions and did not permit that I ask a lot of questions. Objective Last Vital Signs Temp 36.7 C 11/22/20 14:36 Pulse 50 L 11/22/20 15:58 Resp 20 11/22/20 14:36 BP 111/64 11/22/20 14:36 Pulse Ox 96 11/22/20 14:36 Laboratory Results - last 24 hr 11/22/20 11/22/20 11/22/20 07:37 07:37 07:37 WBC 12.14 H RBC 4.17 L Hgb 12.6 L Hct 38.1 L MCV 91.4 MCH 30.2 MCHC 33.1 RDW 13.7 Plt Count 196 MPV 10.3 Immature Gran % 2.0 Neutrophils % 83.1 Lymphocytes % 10.6 Monocytes % 3.5 Eosinophils % 0.6 Basophils % 0.2 Nucleated RBC % 0 Absolute Neutrophils 10.09 H Absolute Lymphocytes 1.29 Absolute Monocytes 0.42 Absolute Eosinophils 0.07 Absolute Basophils 0.02 D-Dimer > 7500 H Sodium 136 Potassium 4.5 Chloride 102 Carbon Dioxide 31.1 Anion Gap 2.9 L BUN 31 H Creatinine 0.9 Estimated GFR/1.73 m2 >= 60.00 Glucose 104 Calcium 8.4 L Total Bilirubin 0.6 AST 64 H ALT 94 H Alkaline Phosphatase 135 H Total Protein 6.7 Albumin 2.0 L
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
[2020-11-22] MEDS: Normal Saline 500 ML 30 ML IV (21:21)
[2020-11-22] MEDS: Insulin Glargine 300 UNITS/3 ML PEN SC (21:23)
[2020-11-23] VITALS (13 sets, daily range): BP systolic 113–123; BP diastolic 66–86; PULSE 53–67; RESP 16–20; TEMP 36.4–36.6; O2SAT 88–98
[2020-11-23] MEDS: Ipratropium/Albuterol 4 GM 120 PUFF INH IH ×3 (08:10→17:40)
[2020-11-23 08:11] LABS: D-Dimer 7283 ng/mlFEU (<500)
[2020-11-23 08:14] LABS: ALT 86 U/L (16-63); AST 46 U/L (15-37); Albumin 1.9 g/dL (3.4-5.0); Alkaline Phosphatase 148 U/L (46-116); Anion Gap 7.5 mmol/L (3-11); BUN 35 mg/dL (7-18); Bilirubin, Total 0.4 mg/dL (0.2-1.0); CO2 26.5 mmol/L (21.0-32.0); CREATININE 1.1 mg/dL (0.70-1.30); Calcium 7.9 mg/dL (8.5-10.1); Chloride 100 mmol/L (98-107); Ferritin 801 ng/mL (26-388); Glucose 278 mg/dL (74-106); Magnesium 1.8 mg/dL (1.8-2.4); Potassium 4.9 mmol/L (3.5-5.1); Sodium 134 mmol/L (136-145); Total Protein 5.8 g/dL (6.4-8.2)
[2020-11-23] MEDS: Dexamethasone 10 MG/ML VIAL 6 MG IVP (08:31)
[2020-11-23] MEDS: Furosemide 20 MG/2 ML VIAL IVP (08:31)
[2020-11-23] MEDS: Ascorbic Acid 500 MG TAB 1000 MG PO (08:32)
[2020-11-23] MEDS: Cetirizine 10 MG TAB PO (08:32)
[2020-11-23] MEDS: ROSUVASTATIN 20 MG TAB 40 MG PO (08:32)
[2020-11-23] MEDS: Cholecalciferol (Vitamin D3) 1,000 UNIT TAB 2000 UNITS PO (08:32)
[2020-11-23] MEDS: Loratidine 10 MG TAB PO (08:32)
[2020-11-23] MEDS: amLODIPine 2.5 MG TAB PO (08:32)
[2020-11-23] MEDS: M 300 MG PO (08:32)
[2020-11-23] MEDS: guaiFENesin 600 MG TABCR PO ×2 (08:32→20:54)
[2020-11-23] MEDS: Finasteride 5 MG TAB PO (08:32)
[2020-11-23] MEDS: Magnesium Oxide 400 MG TAB PO ×2 (08:32→20:55)
[2020-11-23] MEDS: Apixaban 5 MG TAB PO ×2 (08:33→20:54)
[2020-11-23] MEDS: Famotidine 20 MG TAB PO ×2 (08:33→20:54)
[2020-11-23 08:34] LABS: C-Reactive Protein 1.95 mg/dL (0.0-0.3)
[2020-11-23] MEDS: Insulin Aspart 300 UNITS/3 ML PEN SC ×7 (08:36→22:42)
[2020-11-23 08:47] LABS: ALT 84 U/L (16-63); AST 46 U/L (15-37); Albumin 1.8 g/dL (3.4-5.0); Alkaline Phosphatase 148 U/L (46-116); Bilirubin, Direct 0.1 mg/dL (0.0-0.2); Bilirubin, Total 0.4 mg/dL (0.2-1.0); Total Protein 5.7 g/dL (6.4-8.2)
--- NOTE | 2020-11-23 13:05 | PT.INTREAT ---
Date of service: 11/23/20 Time of Service: 11:30 PT Notes Visit Reasons: COVID 19 Pneumonitis with Hypoxemia Inpatient Physical Therapy Treatment Note [facility] Date: 11/23/2020 PRECAUTIONS: Activity as tolerated. SUBJECTIVE: Likes to walk. Gets tired easily. OBJECTIVE: PAIN: No reports of pain offered. BED MOBILITY/TRANSFERS Up in chair upon my arrival. Sit-stand: SBA Stand-sit: SBA GAIT Assistive Device: FWW Weight bearing: FWB Assist: SBA Distance: 50ft VITALS: O2 dropped from 94% to 84% with ambulation, but increased back to 94% with short 1 minutes seated rest, while on O2 supplement of 3L. THEREX: See flow sheet for ther exercises performed while in seated position. Utilized 3# dumbbells with right UE and orange T-band with bilateral UE horizontal abduction and LE hamstring curls and seated hip abduction. ASSESSMENT: Tolerated today's PT session well with good effort given. PLAN: Continue to focus on improved ADL function with increased ambulation and strengthening of bilateral UE/ LEs. TREATMENT CODE/TIME: 27927g3 and [id number], 35 minutes, 11:30 to 12:05
[2020-11-23 14:06] LABS: Bilirubin Negative (Negative); Blood Moderate (Negative); Clarity Clear (Clear); Glucose Negative (Negative); Ketones Negative (Negative); Leukocyte Esterase Negative (Negative); Nitrite Negative (Negative); Specific Gravity 1.015 (1.005-1.025); Urobilinogen 0.2 EU/dL (Up TO 0.2); pH 5.5 (5-8)
[2020-11-23 14:21] LABS: Bacteria Negative HPF (Negative); C & S Indicated? No; Casts Negative LPF (Negative); Crystals Negative HPF (Negative); Epithelial Cells Rare HPF (Negative); Mucus Negative (Negative); RBC >50 HPF (0-2); WBC 0-2 HPF (0-5)
--- NOTE | 2020-11-23 14:25 | PGE_ITS ---
Date of Service Date of service: 11/23/20 Time of Service: 14:25 Assessment and Plan Assessment and plan (1) Pneumonia due to COVID-19 virus: Status: Acute Assessment and plan: With hypoxemia and suspected superimposed acute bacterial pneumonia. Likely a degree of fluid overload contributing to hypoxia He is now on 3L-5L of O2 by ND. Wean as tolerated. Continue lasix. Continue baricitinib, remdesevir, decadron Continue Vitamins, pepcid. D/c doxycycline/ceftriaxone. Encourage proning (patient flatly refuses). Continue IS and acapella. (2) Acute on chronic diastolic (congestive) heart failure: Status: Acute Assessment and plan: Change lasix to po. Monitor I/O's and daily weights (3) Acute respiratory failure with hypoxia: Status: Acute Assessment and plan: Multifactorial: due to covid-19 pneumonia, acute exacerbation of diastolic CHF, pulmonary hypertension, atelectasis. As above (4) Atrial fibrillation and flutter: Status: Chronic Assessment and plan: Continue monitoring on tele. Continue Eliquis but if hematuria is serious, consider holding it. Rate controlled. (5) CHF (congestive heart failure): Status: Chronic Assessment and plan: Preserved EF. IV lasix effective; pedal edema decreased and wt decreased Change to lasix 40mg po daily. Continue monitoring I/O's and daily weights. Needs outpatient MPI due to wall motion abnormalities. Qualifiers: Heart failure type: unspecified Heart failure chronicity: acute on chronic Qualified Code(s): I50.9 - Heart failure, unspecified (6) Hematuria: Status: Acute Assessment and plan: UA with moderate blood otherwise no evidence of infectious process. Consider holding anticoagulation if significant. Hgb stable. (7) Diabetes mellitus: Status: Chronic Assessment and plan: Cont current insulin dosing and adjust as needed. 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 Has outpatient psychotherapy (9) DVT prophylaxis: Status: Acute Assessment and plan: On therapeutic apixaban (Afib) Low threshold to stop if hematuria significant. (10) Discharge planning issues: Status: Acute Assessment and plan: DNR/DNI Palliative care consulted PT consulted. Subjective Subjective Patient reports: feels better, tolerating a regular diet and afebrile; denies n ausea and vomiting Interval history since last seen: Chronically has loose stools; small amts of stool when urinates as well. Exam Const General: cooperative and no acute distress Nutritional Appearance: average body habitus Orientation: alert and oriented x3 Resp Effort & Inspection: normal respiratory effort Auscultation: clear to auscultation bilaterally and diminished lung sounds Cardio Rate: regular rate Rhythm: regular rhythm Heart Sounds: S1 normal and S2 normal GI Palpation: soft and nontender Auscultation: normal bowel sounds Skin General skin exam: no rashes or lesions noted Extrem General: no calf tenderness and pedal edema bilaterally 1+ Psych Appearance: grossly normal Mental Status: mental status grossly normal Speech and Movement: speech and movement normal Affect: normal affect Objective Last Vital Signs Temp 36.5 C 11/23/20 12:22 Pulse 58 L 11/23/20 12:22 Resp 20 11/23/20 12:22 BP 123/76 11/23/20 12:22 Pulse Ox 93 11/23/20 12:22 Laboratory Results - last 24 hr 11/23/20 11/23/20 11/23/20 05:35 05:35 07:00 WBC Cancelled RBC Cancelled Hgb Cancelled Hct Cancelled MCV Cancelled MCH Cancelled MCHC Cancelled RDW Cancelled Plt Count Cancelled MPV Cancelled Immature Gran % Cancelled Neutrophils % Cancelled Band Neutrophils % Cancelled Lymphocytes % Cancelled Atypical Lymphs % Cancelled Monocytes % Cancelled Eosinophils % Cancelled Basophils % Cancelled Metamyelocytes % Cancelled Myelocytes % Cancelled Promyelocytes % Cancelled Other Cells % Cancelled Nucleated RBC % Cancelled Absolute Neutrophils Cancelled Absolute Lymphocytes Cancelled Absolute Monocytes Cancelled Absolute Eosinophils Cancelled Absolute Basophils Cancelled RBC Morphology Cancelled Polychromasia Cancelled Hypochromasia Cancelled Poikilocytosis Cancelled Basophilic Stippling Cancelled Anisocytosis Cancelled Microcytosis Cancelled Macrocytosis Cancelled Spherocytes Cancelled Tear Drop Cells Cancelled Ovalocytes Cancelled Stomatocytes Cancelled [place] Bodies Cancelled [place] Cells/Echinocytes Cancelled Acanthocytes (Spur) Cancelled Schistocytes Cancelled D-Dimer Sodium 134 L Potassium 4.9 Chloride 100 Carbon Dioxide 26.5 Anion Gap 7.5 BUN 35 H Creatinine 1.1 Estimated GFR/1.73 m2 >= 60.00 Glucose 278 H D Calcium 7.9 L Magnesium 1.8 Ferritin 801 H Total Bilirubin 0.4 Conjugated Bilirubin AST 46 H ALT 86 H Alkaline Phosphatase 148 H C-Reactive Protein 1.95 H Total Protein 5.8 L Albumin 1.9 L Procalcitonin Cancelled Urine Color Urine Clarity Urine pH Ur Specific [place] Urine Protein Urine Ketones Urine Blood Urine Nitrite Urine Bilirubin Urine Urobilinogen Ur Leukocyte Esterase Urine RBC Urine WBC Ur Epithelial Cells Urine Crystals Urine Bacteria Urine Casts Urine Mucus Ur Culture Indicated? Urine Glucose 11/23/20 11/23/20 11/23/20 07:00 07:00 13:50 WBC RBC Hgb Hct MCV MCH MCHC RDW Plt Count MPV Immature Gran % Neutrophils % Band Neutrophils % Lymphocytes % Atypical Lymphs % Monocytes % Eosinophils % Basophils % Metamyelocytes % Myelocytes % Promyelocytes % Other Cells % Nucleated RBC % Absolute Neutrophils Absolute Lymphocytes Absolute Monocytes Absolute Eosinophils Absolute Basophils RBC Morphology Polychromasia Hypochromasia Poikilocytosis Basophilic Stippling Anisocytosis Microcytosis Macrocytosis Spherocytes Tear Drop Cells Ovalocytes Stomatocytes [place] Bodies [place] Cells/Echinocytes Acanthocytes (Spur) Schistocytes D-Dimer 7283 H Sodium Potassium Chloride Carbon Dioxide Anion Gap BUN Creatinine Estimated GFR/1.73 m2 Glucose Calcium Magnesium Ferritin Total Bilirubin 0.4 Conjugated Bilirubin 0.1 AST 46 H ALT 84 H Alkaline Phosphatase 148 H C-Reactive Protein Total Protein 5.7 L Albumin 1.8 L Procalcitonin Urine Color Yellow Urine Clarity Clear Urine pH 5.5 Ur Specific [place] 1.015 Urine Protein Negative Urine Ketones Negative Urine Blood Moderate H Urine Nitrite Negative Urine Bilirubin Negative Urine Urobilinogen 0.2 Ur Leukocyte Esterase Negative Urine RBC >50 H Urine WBC 0-2 Ur Epithelial Cells Rare Urine Crystals Negative Urine Bacteria Negative Urine Casts Negative Urine Mucus Negative Ur Culture Indicated? No Urine Glucose Negative
[2020-11-23] MEDS: Loperamide 2 MG CAP 4 MG PO (14:30)
[2020-11-23] MEDS: Tamsulosin 0.4 MG CAPCR 0.8 MG PO (18:27)
[2020-11-23] MEDS: Normal Saline Flush 10 ML SYR IVP (20:53)
[2020-11-23] MEDS: Melatonin 3 MG TAB PO (20:54)
[2020-11-23] MEDS: Insulin Glargine 300 UNITS/3 ML PEN SC (22:43)
[2020-11-24] VITALS (12 sets, daily range): BP systolic 106–131; BP diastolic 55–72; PULSE 48–64; RESP 16–19; TEMP 36–36.8; O2SAT 91–95
[2020-11-24] MEDS: Loperamide 2 MG CAP 4 MG PO (05:07)
[2020-11-24] MEDS: Cholecalciferol (Vitamin D3) 1,000 UNIT TAB 2000 UNITS PO (08:23)
[2020-11-24] MEDS: Famotidine 20 MG TAB PO ×2 (08:23→19:59)
[2020-11-24] MEDS: M 300 MG PO (08:23)
[2020-11-24] MEDS: Apixaban 5 MG TAB PO ×2 (08:23→19:59)
[2020-11-24] MEDS: amLODIPine 2.5 MG TAB PO (08:23)
[2020-11-24] MEDS: Ascorbic Acid 500 MG TAB 1000 MG PO (08:24)
[2020-11-24] MEDS: Cetirizine 10 MG TAB PO (08:24)
[2020-11-24] MEDS: Furosemide 40 MG TAB PO (08:24)
[2020-11-24] MEDS: ROSUVASTATIN 20 MG TAB 40 MG PO (08:24)
[2020-11-24] MEDS: Finasteride 5 MG TAB PO (08:24)
[2020-11-24] MEDS: Loratidine 10 MG TAB PO (08:24)
[2020-11-24] MEDS: guaiFENesin 600 MG TABCR PO ×2 (08:24→19:59)
[2020-11-24] MEDS: Magnesium Oxide 400 MG TAB PO ×2 (08:24→19:59)
[2020-11-24] MEDS: Insulin Aspart 300 UNITS/3 ML PEN SC ×7 (08:25→21:54)
[2020-11-24] MEDS: Mylanta Suspension 30 ML CUP PO (08:55)
[2020-11-24] MEDS: Ipratropium/Albuterol 4 GM 120 PUFF INH IH ×3 (09:14→19:58)
[2020-11-24] MEDS: Dexamethasone 4 MG TAB 6 MG PO (09:32)
--- NOTE | 2020-11-24 11:59 | PT.INTREAT ---
Date of service: 11/24/20 Time of Service: 11:10 PT Notes Visit Reasons: COVID 19 Pneumonitis with Hypoxemia Inpatient Physical Therapy Treatment Note [facility] Date: 11/24/2020 PRECAUTIONS: Activity as tolerated SUBJECTIVE: Attempted to see earlier in the morning but indicated he needed to rest. When seen later in morning he stated he would be glad to try walking a little more today. Still tires easily. OBJECTIVE: PAIN: No reports of pain. BED MOBILITY/TRANSFERS Sitting up on edge of bed when I arrived to room. Sit to stand: SBA with verbal cueing to not pull up with walker. Stand-sit: SBA with verbal cueing to place hand on bed before sitting Utilized O2 supplement at 3L throughout session. GAIT Assistive Device: FWW Weight bearing: Full Assist: SBA Distance: 16ft and 32ft O2 readings at 94% prior to ambulation, with decrease to 84% directly post ambulation. Increases back to 90's withing 1-2 minutes THEREX: See flow sheet for ther exercises performed in room today. Utilizing orange T-band with hamstring curls and hip abd/add and 3# dumbbells with bicep curls and rows. ASSESSMENT: Tolerated today session well with good effort given throughout treatment time. PLAN: Continue to work on ambulation and strengthening for improved ADL function. TREATMENT CODE/TIME: 81500 and 99118, 35 minutes, 11:20 to 11:45 am
--- NOTE | 2020-11-24 12:46 | PGE_ITS ---
Date of Service Date of service: 11/24/20 Time of Service: 12:46 Assessment and Plan Assessment and plan (1) Pneumonia due to COVID-19 virus: Status: Acute Assessment and plan: With hypoxemia and suspected superimposed acute bacterial pneumonia. Likely a degree of fluid overload contributing to hypoxia He is now on 3L of O2 by [place]. Wean as tolerated. Continue lasix. Conbt baricitinib. OK to stop remdesivir; lost IV and only 1 more dose scheduled after today. Change dexamethasone to oral. Continue Vitamins, pepcid. Doxycycline/ceftriaxone were previously d/c'd Continue IS and acapella. (2) Acute on chronic diastolic (congestive) heart failure: Status: Acute Assessment and plan: Change lasix to po. Monitor I/O's and daily weights (3) Acute respiratory failure with hypoxia: Status: Acute Assessment and plan: Multifactorial: due to covid-19 pneumonia, acute exacerbation of diastolic CHF, pulmonary hypertension, atelectasis. As above (4) Atrial fibrillation and flutter: Status: Chronic Assessment and plan: Continue monitoring on tele. Continue Eliquis but if hematuria is serious, consider holding it. Rate controlled. (5) CHF (congestive heart failure): Status: Chronic Assessment and plan: Preserved EF. IV lasix effective; pedal edema decreased and wt decreased Changed to lasix 40mg po daily. Continue monitoring I/O's and daily weights. Needs outpatient MPI due to wall motion abnormalities. Qualifiers: Heart failure type: unspecified Heart failure chronicity: acute on chronic Qualified Code(s): I50.9 - Heart failure, unspecified (6) Hematuria: Status: Acute Assessment and plan: UA with moderate blood otherwise no evidence of infectious process. Consider holding anticoagulation if significant. Hgb stable. (7) Diabetes mellitus: Status: Chronic Assessment and plan: Cont current insulin dosing and adjust as needed. Diabetic diet Qualifiers: Diabetes mellitus type: type 2 Diabetes mellitus half-way insulin use: with half-way use Diabetes mellitus complication status: with other specified complication Qualified Code(s): E11.69 - Type 2 diabetes mellitus with other specified complication; Z79.4 - long-term (current) use of insulin (8) Depressive disorder: Status: Chronic Assessment and plan: Continue outpatient therapy. Has outpatient psychotherapy (9) DVT prophylaxis: Status: Acute Assessment and plan: On therapeutic apixaban (Afib) Low threshold to stop if hematuria significant. (10) Discharge planning issues: Status: Acute Assessment and plan: DNR/DNI Palliative care consulted PT consulted. Subjective Subjective Patient reports: no new complaints, tolerating a regular diet, shortness of breath (mild) and afebrile; denies nausea and vomiting Interval history since last seen: Improving level of energy. Exam Const General: cooperative and no acute distress Nutritional Appearance: average body habitus Orientation: alert and oriented x3 Resp Effort & Inspection: normal respiratory effort Auscultation: clear to auscultation bilaterally and diminished lung sounds Cardio Rate: regular rate Rhythm: regular rhythm Heart Sounds: S1 normal and S2 normal GI Palpation: soft and nontender Auscultation: normal bowel sounds Skin General skin exam: no rashes or lesions noted Extrem General: no calf tenderness and pedal edema bilaterally 1+ Psych Appearance: grossly normal Mental Status: mental status grossly normal Speech and Movement: speech and movement normal Affect: normal affect Objective Last Vital Signs Temp 36.3 C L 11/24/20 07:30 Pulse 60 11/24/20 07:30 Resp 18 11/24/20 07:30 BP 118/71 11/24/20 07:30 Pulse Ox 93 11/24/20 09:17 Laboratory Results - last 24 hr 11/23/20 11/23/20 11/23/20 05:35 05:35 13:50 WBC Cancelled RBC Cancelled Hgb Cancelled Hct Cancelled MCV Cancelled MCH Cancelled MCHC Cancelled RDW Cancelled Plt Count Cancelled MPV Cancelled Immature Gran % Cancelled Neutrophils % Cancelled Band Neutrophils % Cancelled Lymphocytes % Cancelled Atypical Lymphs % Cancelled Monocytes % Cancelled Eosinophils % Cancelled Basophils % Cancelled Metamyelocytes % Cancelled Myelocytes % Cancelled Promyelocytes % Cancelled Other Cells % Cancelled Nucleated RBC % Cancelled Absolute Neutrophils Cancelled Absolute Lymphocytes Cancelled Absolute Monocytes Cancelled Absolute Eosinophils Cancelled Absolute Basophils Cancelled RBC Morphology Cancelled Polychromasia Cancelled Hypochromasia Cancelled Poikilocytosis Cancelled Basophilic Stippling Cancelled Anisocytosis Cancelled Microcytosis Cancelled Macrocytosis Cancelled Spherocytes Cancelled Tear Drop Cells Cancelled Ovalocytes Cancelled Stomatocytes Cancelled Dejesus-Ebony Bodies Cancelled John Cells/Echinocytes Cancelled Acanthocytes (Spur) Cancelled Schistocytes Cancelled Procalcitonin Cancelled Urine Color Yellow Urine Clarity Clear Urine pH 5.5 Ur Specific [employer] 1.015 Urine Protein Negative Urine Ketones Negative Urine Blood Moderate H Urine Nitrite Negative Urine Bilirubin Negative Urine Urobilinogen 0.2 Ur Leukocyte Esterase Negative Urine RBC >50 H Urine WBC 0-2 Ur Epithelial Cells Rare Urine Crystals Negative Urine Bacteria Negative Urine Casts Negative Urine Mucus Negative Ur Culture Indicated? No Urine Glucose Negative
[2020-11-24] MEDS: Sodium Chloride-Nasal SPRAY-ADULT 44 ML BTL NS (17:11)
[2020-11-24] MEDS: Tamsulosin 0.4 MG CAPCR 0.8 MG PO (18:30)
[2020-11-24] MEDS: Insulin Glargine 300 UNITS/3 ML PEN SC (21:54)
[2020-11-25 00:30] VITALS: BP 137/74; PULSE 63; RESP 16; TEMP 36.4; O2SAT 95
[2020-11-25 02:17] LABS: Vitamin D 25 Total 23.4 ng/mL (30-100)
[2020-11-25 05:02] VITALS: BP 138/78; PULSE 71; RESP 16; TEMP 36.4; O2SAT 93
[2020-11-25] MEDS: Normal Saline Flush 10 ML SYR IVP (05:07)
[2020-11-25] MEDS: Loperamide 2 MG CAP 4 MG PO (05:07)
[2020-11-25 07:37] VITALS: PULSE 58
[2020-11-25] MEDS: Mylanta Suspension 30 ML CUP PO (08:32)
[2020-11-25] MEDS: Magnesium Oxide 400 MG TAB PO (08:33)
[2020-11-25] MEDS: ROSUVASTATIN 20 MG TAB 40 MG PO (08:34)
[2020-11-25] MEDS: Finasteride 5 MG TAB PO (08:34)
[2020-11-25] MEDS: Cetirizine 10 MG TAB PO (08:34)
[2020-11-25] MEDS: Loratidine 10 MG TAB PO (08:34)
[2020-11-25] MEDS: guaiFENesin 600 MG TABCR PO (08:34)
[2020-11-25] MEDS: Metoprolol CR 25 MG TABCR 12.5 MG PO (08:34)
[2020-11-25] MEDS: Furosemide 40 MG TAB PO (08:34)
[2020-11-25 08:35] VITALS: BP 136/77; PULSE 64; RESP 18; TEMP 36.8; O2SAT 95
[2020-11-25] MEDS: Dexamethasone 4 MG TAB 6 MG PO (08:35)
[2020-11-25] MEDS: Apixaban 5 MG TAB PO (08:35)
[2020-11-25] MEDS: amLODIPine 2.5 MG TAB PO (08:35)
[2020-11-25] MEDS: Cholecalciferol (Vitamin D3) 1,000 UNIT TAB 2000 UNITS PO (08:36)
[2020-11-25] MEDS: M 300 MG PO (08:36)
[2020-11-25] MEDS: Potassium Chloride 20 MEQ TABCR PO (08:36)
[2020-11-25] MEDS: Ascorbic Acid 500 MG TAB 1000 MG PO (08:36)
[2020-11-25] MEDS: Famotidine 20 MG TAB PO (08:36)
[2020-11-25] MEDS: Insulin Aspart 300 UNITS/3 ML PEN SC ×4 (08:37→13:02)
[2020-11-25] MEDS: Ipratropium/Albuterol 4 GM 120 PUFF INH IH ×2 (10:10→12:31)
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
--- NOTE | 2020-11-25 11:49 | W.NUTRFU ---
Date of service: 11/25/20 Time of Service: 11:49 Nutritional Follow up NOTE: Per Mr. Rodriguez's request, contacted Margaux to see what support and education she might need with regard to his diabetes. Margaux stated that she does not have any diabetes support needs, however she would like a list of high potassium foods. Provided the list for Sgeun as well as my contact information. Time Spent in Nutritional Counseling and Treatment: 5 minutes
[2020-11-25 11:54] VITALS: BP 110/55; PULSE 62; RESP 18; TEMP 36.6; O2SAT 96
[2020-11-25 12:39] VITALS: PULSE 69; PULSE 72; PULSE 76; RESP 16; RESP 20; O2SAT 90; O2SAT 93; O2SAT 96
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
== END 2020-11-25 15:35 | disposition home health service (06) | DRG 177 ==
LOC: ER 22:31 → MS 23:10
PROVIDERS: Internal Medicine; Nurse Practitioner Family; Admitting Provider Family Medicine; Emergency Provider Registered Nurse Emergency; PCP Student in an Organized Health Care Education/Training Program; Visit Provider Family Medicine
DX: U07.1 COVID-19 (principal); J12.82 Pneumonia due to coronavirus disease 2019; I50.33 Acute on chronic diastolic (congestive) heart failure; J15.9 Unspecified bacterial pneumonia; I48.92 Unspecified atrial flutter; J98.11 Atelectasis; I48.91 Unspecified atrial fibrillation; Z66 Do not resuscitate; E78.5 Hyperlipidemia, unspecified; I25.2 Old myocardial infarction; E83.42 Hypomagnesemia; F32.9 Major depressive disorder, single episode, unspecified; I11.0 Hypertensive heart disease with heart failure; Z79.01 Long term (current) use of anticoagulants; Z79.4 Long term (current) use of insulin; E11.649 Type 2 diabetes mellitus with hypoglycemia without coma; I27.20 Pulmonary hypertension, unspecified
CPT/HCPCS: 36415; 71275; 80053; 80076; 82306; 82805; 84145; 86850; 86900; 86901; 87040; 87635; 93005; 93306; 94618; 94640; 96361; 96365; 96367; 96375; 97110; 97162; 97530; 99291; 36600; 81003; 81015; 82728; 83615; 83735; 83880; 84484; 85025; 85379; 85610; 86140; 93010; 94668; 99223; 99231; 99232; 99233; 99239; J0696; J1100; J1941; J3475; J3490; J8540

== ENCOUNTER 2021-02-12 11:53 | Outpatient (REF) | payer MEDICARE, MEDICAID, SELFPAY | END 2021-02-12 11:54 | disposition home or self-care (01) | LOC: LBN 11:53 | PROVIDERS: PCP Student in an Organized Health Care Education/Training Program; Visit Provider Student in an Organized Health Care Education/Training Program | DX: L02.811 Cutaneous abscess of head [any part, except face]; L98.8 Other specified disorders of the skin and subcutaneous tissue | CPT/HCPCS: 87077; 87070; 87186; 87205 ==

== ENCOUNTER 2021-04-30 17:21 | Outpatient (REF) | payer MEDICARE, MEDICAID, SELFPAY ==
[2021-04-30 13:36] LABS: Bilirubin Negative (Negative); Blood Moderate (Negative); Clarity Sl Cloudy (Clear); Glucose Negative (Negative); Ketones Negative (Negative); Leukocyte Esterase Moderate (Negative); Nitrite Negative (Negative); pH 8.5 (5-8)
[2021-04-30 13:49] LABS: Bacteria Many HPF (Negative); C & S Indicated? C&S Done As Ordered; Casts Negative LPF (Negative); Crystals Negative HPF (Negative); Epithelial Cells Rare HPF (Negative); Mucus Negative (Negative); WBC 20-50 HPF (0-5)
== END 2021-04-30 17:22 | disposition home or self-care (01) ==
LOC: LBN 17:21
PROVIDERS: PCP Student in an Organized Health Care Education/Training Program; Visit Provider Student in an Organized Health Care Education/Training Program
DX: R30.0 Dysuria (principal)
CPT/HCPCS: 87077; 81003; 81015; 87086; 87186

== ENCOUNTER 2022-05-28 17:55 | Inpatient (IN) | payer MEDICARE, MEDICAID, SELFPAY ==
[2022-05-28 17:54] VITALS: BP 170/89; PULSE 72; RESP 14; TEMP 36.3; O2SAT 98
--- NOTE | 2022-05-28 18:00 | RT.EKG_ITS ---
APPROVED REPORT Exam: Resting ECG Reason for Exam: weakness Patient Location: E HR:68 bpm ECG Measurements Heart Rate 68 AXIS ID [id number] P [id number] QRSd 90 QRS 28 QT 414 T 99 QTc 441 Conclusion Atrial fibrillation...? atrial activity Anteroseptal infarct, age indeterminate...Q >35mS, T neg, V1-V2 sinus rhythm, normal axis, normal intevals, likely PAC with compesatory pause
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
[2022-05-28 18:15] LABS: BE (Venous) 4 mmol/L (-2-3); HCO3 (Venous) 28 mmol/L (23-28); O2 Sat (Venous) 55 %; TCO2 (Venous) 24 mmol/L (24-29); pCO2 (Venous) 45 mmHg (41-51); pH (Venous) 7.41 (7.31-7.41); pO2 (Venous) 29 mmHg
[2022-05-28 18:19] LABS: Abs Immature Grans 0.13 10^3/uL (0.0-0.06); Absolute Basophil Count 0.05 10^3/uL (0.0-0.2); Absolute Eosinophil Count 0.03 10^3/uL (0.0-0.7); Absolute Lymphocyte Count 1.07 10^3/uL (1.2-3.4); Absolute Monocyte Count 1.01 10^3/uL (0.1-0.8); Basophils % 0.3; Eosinophils % 0.2; HGB 18.6 g/dL (13.5-17.5); Immature Grans % 0.8; Lymphocytes % 6.2; MCH 30.4 pg (27.0-33.0); MCHC 33.8 % (32.0-36.0); MCV 90 fL (80-95); Monocytes % 5.9; Neutrophils % 86.6; Platelet Count 123 10^3/uL (130-400); RBC 6.11 10^6/uL (4.36-5.78); RDW-SD 46.3 fL; WBC 17.18 10^3/uL (4.4-10.8)
[2022-05-28 18:22] LABS: Lactate 2.3 mmol/L (0.6-1.4)
[2022-05-28 18:23] LABS: Absolute Neutrophil Count 14.88 10^3/uL (1.2-6.7)
[2022-05-28 18:45] LABS: ALT 38 U/L (16-63); AST 21 U/L (15-37); Albumin 3.8 g/dL (3.4-5.0); Alkaline Phosphatase 115 U/L (46-116); Anion Gap 10.2 mmol/L (3-11); BUN 19 mg/dL (7-18); CO2 27.8 mmol/L (21.0-32.0); CREATININE 1.2 mg/dL (0.70-1.30); Calcium 9.8 mg/dL (8.5-10.1); Chloride 94 mmol/L (98-107); Creatine Kinase 88 U/L (39-308); Glucose 224 mg/dL (74-106); Lipase 13 U/L (16-77); Magnesium 1.7 mg/dL (1.8-2.4); Potassium 4.5 mmol/L (3.5-5.1); Sodium 132 mmol/L (136-145); Total Protein 8.9 g/dL (6.4-8.2); Troponin I < 50 ng/L (<or=60)
[2022-05-28 19:03] LABS: FREE T4 1.75 ng/dL (0.76-1.46)
--- NOTE | 2022-05-28 19:20 | DI.RAD_ITS ---
Exam(s) XR PORTABLE CHEST AP EXAM: XR PORTABLE CHEST AP CLINICAL HISTORY: weakness TECHNIQUE: 2D digital imaging was performed. COMPARISON: CT CT CHEST PE CTA from 11/16/2020 FINDINGS: LUNGS: Not well inflated but clear. No pleural abnormality seen. HEART: Normal size. AORTA: Normal diameter. BONES: Unremarkable for age. Soft tissues: Unremarkable. IMPRESSION: No acute findings. DATA REPOSITORY: RADIATION DOSE DELIVERED:
--- NOTE | 2022-05-28 19:27 | DI.VRAD_ITS ---
PROCEDURE INFORMATION: Exam: XR Chest Exam date and time: 05/28/2022 6:47 PM Age: 76 years old Clinical indication: Other: Weakness TECHNIQUE: Imaging protocol: Radiologic exam of the chest. Views: 1 view. COMPARISON: CR XR PORTABLE CHEST AP 11/11/2020 12:48 PM FINDINGS: Lungs: Unremarkable. No consolidation. Pleural spaces: Unremarkable. No pleural effusion. No pneumothorax. Heart/Mediastinum: Unremarkable. No cardiomegaly. Bones/joints: Mild degenerative changes of the spine and shoulders are noted. IMPRESSION: No acute disease Dictated and Authenticated by: Akhil Day MD. Ordering:CHONG Vasquez MD
[2022-05-28] MEDS: Lidocaine 2% Jelly 11 ML SYR UR (20:00)
[2022-05-28 20:05] LABS: Bilirubin Negative (Negative); Blood Small (Negative); Clarity Clear (Clear); Glucose 100 mg/dL (Negative); Ketones Negative (Negative); Leukocyte Esterase Large (Negative); Nitrite Negative (Negative); Urobilinogen 0.2 mg/dL (Up to 0.2); pH 7.5 (5-8)
[2022-05-28 20:14] LABS: Bacteria Rare HPF (Negative); Crystals Negative HPF (Negative); Epithelial Cells Rare HPF (Negative); Other Cells Negative (Negative)
[2022-05-28 20:15] LABS: C & S Indicated? Yes; Casts Negative LPF (Negative); Mucus Negative (Negative)
[2022-05-28] MEDS: Lactated Ringers 1,000 ML 200 ML IV (20:21)
[2022-05-28] MEDS: cefTRIAXone 2 GM/50 ML BAG IVPB (20:25)
[2022-05-28] MEDS: Magnesium Gluconate 500 MG TAB PO (20:43)
[2022-05-28 21:02] VITALS: BP 148/78; PULSE 59; RESP 16; O2SAT 97
[2022-05-28 21:05] LABS: Source Nasal/Nares
[2022-05-28 21:36] LABS: COVID-19 PCR Negative (Negative)
[2022-05-28] MEDS: Magnesium Oxide 400 MG TAB PO (22:23)
[2022-05-28 22:40] VITALS: BP 135/89; PULSE 60; RESP 18; TEMP 36; O2SAT 98
--- NOTE | 2022-05-29 | DI.US_ITS ---
Exam(s) US RENAL EXAM: US RENAL CLINICAL HISTORY: Retention. TECHNIQUE: Erickson scale, color and spectral Doppler were used. COMPARISON: CT CT ABDOMEN PELVIS WO from 06/09/2019 FINDINGS: Renal size in cm: Right: 9.3 left: 10.6 Echogenicity: Normal Hydronephrosis: No Cyst or mass: Stable 3 centimeter cyst upper pole left kidney. Nephrolithiasis: No Bladder: Empty. Bladder catheter in place. IMPRESSION: No evidence of hydronephrosis. DATA REPOSITORY:
[2022-05-29 02:53] VITALS: BP 124/81; PULSE 65; RESP 18; TEMP 36; O2SAT 98
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
[2022-05-29 06:49] LABS: Abs Immature Grans 0.07 10^3/uL (0.0-0.06); Absolute Basophil Count 0.03 10^3/uL (0.0-0.2); Absolute Eosinophil Count 0.07 10^3/uL (0.0-0.7); Absolute Neutrophil Count 10.81 10^3/uL (1.2-6.7); Basophils % 0.2; Eosinophils % 0.5; HCT 48.2 % (40.0-50.0); HGB 16.7 g/dL (13.5-17.5); Immature Grans % 0.5; Lymphocytes % 9.3; MCHC 34.6 % (32.0-36.0); MCV 89 fL (80-95); Monocytes % 8.1; Neutrophils % 81.4; RBC 5.39 10^6/uL (4.36-5.78); RDW-SD 45.6 fL; WBC 13.28 10^3/uL (4.4-10.8)
[2022-05-29 06:57] LABS: Absolute Lymphocyte Count 1.24 10^3/uL (1.2-3.4); Absolute Monocyte Count 1.08 10^3/uL (0.1-0.8)
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
[2022-05-29 07:20] LABS: Anion Gap 11.2 mmol/L (3-11); BUN 17 mg/dL (7-18); CO2 24.8 mmol/L (21.0-32.0); CREATININE 0.9 mg/dL (0.70-1.30); Calcium 8.9 mg/dL (8.5-10.1); Chloride 99 mmol/L (98-107); Estimated GFR 87.42 (mL/min/1.73m2); Glucose 114 mg/dL (74-106); Potassium 3.9 mmol/L (3.5-5.1); Sodium 135 mmol/L (136-145)
[2022-05-29 07:24] LABS: Diff Comment Diff Reviewed; RBC Morphology Normal
[2022-05-29 08:23] VITALS: BP 157/96; PULSE 64; RESP 20; TEMP 35.9; O2SAT 97
[2022-05-29] MEDS: metFORMIN 500 MG TAB PO ×2 (08:30→17:22)
[2022-05-29] MEDS: Apixaban 5 MG TAB PO ×2 (08:30→21:59)
[2022-05-29] MEDS: Finasteride 5 MG TAB PO (08:30)
[2022-05-29] MEDS: amLODIPine 2.5 MG TAB PO (08:30)
[2022-05-29] MEDS: Insulin Glargine 300 UNITS/3 ML PEN 23 UNITS SC (08:31)
[2022-05-29] MEDS: Metoprolol CR 25 MG TABCR 12.5 MG PO (08:31)
[2022-05-29] MEDS: Cetirizine 10 MG TAB PO (08:31)
--- NOTE | 2022-05-29 10:23 | W.INDIABCONS ---
Date of service: 05/29/22 Time of Service: 10:23 Diabetes Inpatient Consult Reason for Visit: dm2 DESCRIPTION/ASSESSMENT: Diabetes consult received. Will meet with Segun when available. Most recent A1C: 6.7% (04/23/22). Home Dm meds: 23 u glargine hs, metformin/sitagliptin 500 mg qd, receives glucerna shakes at home. Time Spent in Nutritional Counseling and Treatment: 0
[2022-05-29 11:19] VITALS: BP 139/80; PULSE 57; RESP 14; TEMP 36.2; O2SAT 96
[2022-05-29] MEDS: Baclofen 10 MG TAB 5 MG PO (11:23)
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
[2022-05-29] MEDS: buPROPion-XL 150 MG TABCR 300 MG PO (11:53)
[2022-05-29] MEDS: Insulin Aspart 300 UNITS/3 ML PEN SC (11:54)
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
[2022-05-29 14:45] VITALS: BP 162/93; PULSE 65; RESP 14; TEMP 36.2; O2SAT 99
--- NOTE | 2022-05-29 15:23 | PT.INNT ---
Date of service: 05/29/22 Time of Service: 15:23 PT Notes Visit Reasons: UTI/Urinary Retention/Weakness 05/29/2022 Patient pleasantly declined afternoon PT services, stating I am very very tired this afternoon. Will attempt to resume PT services tomorrow morning.
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
[2022-05-29] MEDS: Tamsulosin 0.4 MG CAPCR 0.8 MG PO (17:22)
[2022-05-29 19:25] VITALS: BP 119/73; PULSE 63; RESP 14; TEMP 36.5; O2SAT 94
[2022-05-29] MEDS: cefTRIAXone 1 GM/50 ML BAG IVPB (21:59)
[2022-05-29] MEDS: Magnesium Oxide 400 MG TAB PO (22:00)
[2022-05-29] MEDS: Rosuvastatin 10 MG TAB 40 MG PO (22:00)
[2022-05-29 23:00] VITALS: BP 126/73; PULSE 62; RESP 14; TEMP 36.8; O2SAT 97
[2022-05-30 03:10] VITALS: BP 102/63; PULSE 67; RESP 14; TEMP 36; O2SAT 97
[2022-05-30 06:21] LABS: Abs Immature Grans 0.06 10^3/uL (0.0-0.06); Absolute Basophil Count 0.05 10^3/uL (0.0-0.2); Absolute Eosinophil Count 0.16 10^3/uL (0.0-0.7); Absolute Lymphocyte Count 1.54 10^3/uL (1.2-3.4); Absolute Monocyte Count 0.92 10^3/uL (0.1-0.8); Basophils % 0.5; Eosinophils % 1.5; HCT 45.4 % (40.0-50.0); HGB 15.7 g/dL (13.5-17.5); Immature Grans % 0.6; Lymphocytes % 14.2; MCH 31.3 pg (27.0-33.0); MCHC 34.6 % (32.0-36.0); MPV 11.2 fL (8.0-11.0); Monocytes % 8.5; Neutrophils % 74.7; Platelet Count 90 10^3/uL (130-400); RBC 5.01 10^6/uL (4.36-5.78); RDW 14.3 % (11.8-14.1); RDW-SD 47.5 fL; WBC 10.87 10^3/uL (4.4-10.8)
[2022-05-30 06:41] LABS: Anion Gap 6.7 mmol/L (3-11); BUN 25 mg/dL (7-18); CO2 26.3 mmol/L (21.0-32.0); CREATININE 1.1 mg/dL (0.70-1.30); Chloride 102 mmol/L (98-107); Estimated GFR 68.71 (mL/min/1.73m2); Glucose 122 mg/dL (74-106); Magnesium 1.7 mg/dL (1.8-2.4); Sodium 135 mmol/L (136-145)
[2022-05-30 07:03] LABS: Absolute Neutrophil Count 8.12 10^3/uL (1.2-6.7)
[2022-05-30 07:25] LABS: MCV 91 fL (80-95)
[2022-05-30 07:35] VITALS: BP 118/78; PULSE 73; RESP 14; TEMP 36.1; O2SAT 95
[2022-05-30] MEDS: Normal Saline Flush 10 ML SYR (08:40)
[2022-05-30] MEDS: buPROPion-XL 150 MG TABCR 300 MG PO (08:43)
[2022-05-30] MEDS: Finasteride 5 MG TAB PO (08:43)
[2022-05-30] MEDS: Apixaban 5 MG TAB PO ×2 (08:43→22:07)
[2022-05-30] MEDS: amLODIPine 2.5 MG TAB PO (08:43)
[2022-05-30] MEDS: Metoprolol CR 25 MG TABCR 12.5 MG PO (08:43)
[2022-05-30] MEDS: Cetirizine 10 MG TAB PO (08:43)
[2022-05-30] MEDS: Mylanta Suspension 30 ML CUP PO (08:43)
[2022-05-30] MEDS: metFORMIN 500 MG TAB PO ×2 (08:44→17:04)
[2022-05-30] MEDS: MAGNESIUM SULFATE 2 GM/50 ML BAG IVPB (08:45)
[2022-05-30] MEDS: Insulin Glargine 300 UNITS/3 ML PEN 23 UNITS SC (08:57)
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
--- NOTE | 2022-05-30 10:20 | PT.INTREAT ---
PT Notes Visit Reasons: UTI/Urinary Retention/Weakness Inpatient Physical Therapy Treatment Note [facility] Date: 05/30/22 SUBJECTIVE: Segun states that he is wiped out. He is unsure how much he can do. OBJECTIVE: [] PAIN: [] BED MOBILITY/TRANSFERS Rolling L/R: [] Supine-sit: [] Sit-supine: [] Sit-stand: [] Stand-sit: [] Bed-Chair: [] Chair-bed: [] GAIT Assistive Device: [] Weight bearing: [] Assist: [] Distance: [] Deviation: [] VITALS: [] THEREX: [] STAIRS:[] ASSESSMENT: [] PLAN: [] TREATMENT CODE/TIME: []
--- NOTE | 2022-05-30 10:29 | PT.INTREAT ---
PT Notes Visit Reasons: UTI/Urinary Retention/Weakness Inpatient Physical Therapy Treatment Note [facility] Date: 05/30/22 SUBJECTIVE: Segun states that he is wiped out and not sure how much he can do today. OBJECTIVE: [] BED MOBILITY/TRANSFERS pt already in recliner. Sit-stand: CGA Stand-sit: CGA GAIT Assistive Device: FWW Weight bearing: full Assist: CGA Distance: approx 300' THEREX: seated ex for global LE strengthening. AP, LAQ, SLR, heel slides and hi pab/add x10 each. ASSESSMENT: tolerated session well. He did c/o feeling a little unsteady however no LOB noted. PLAN: continue to progress following PT POC. Will look to add in some balance ex tomorrow. TREATMENT CODE/TIME: 30 min [id number], [id number]
[2022-05-30 11:40] VITALS: BP 104/61; PULSE 56; RESP 14; TEMP 36; O2SAT 95
[2022-05-30] MEDS: Insulin Aspart 300 UNITS/3 ML PEN SC (12:08)
[2022-05-30 15:25] VITALS: BP 96/60; PULSE 58; RESP 14; TEMP 35.8; O2SAT 95
[2022-05-30] MEDS: Tamsulosin 0.4 MG CAPCR 0.8 MG PO (17:04)
[2022-05-30 19:27] VITALS: BP 136/84; PULSE 63; RESP 18; TEMP 36.4; O2SAT 96
[2022-05-30] MEDS: cefTRIAXone 1 GM/50 ML BAG IVPB (22:06)
[2022-05-30] MEDS: Rosuvastatin 10 MG TAB 40 MG PO (22:07)
[2022-05-30] MEDS: Magnesium Oxide 400 MG TAB PO (22:08)
[2022-05-31] VITALS (7 sets, daily range): BP systolic 99–154; BP diastolic 63–76; PULSE 60–73; RESP 14–18; TEMP 36–37.1; O2SAT 94–97
[2022-05-31] MEDS: Apixaban 5 MG TAB PO ×2 (08:17→21:32)
[2022-05-31] MEDS: amLODIPine 2.5 MG TAB PO (08:17)
[2022-05-31] MEDS: metFORMIN 500 MG TAB PO ×2 (08:17→17:21)
[2022-05-31] MEDS: Insulin Glargine 300 UNITS/3 ML PEN 23 UNITS SC (08:17)
[2022-05-31] MEDS: buPROPion-XL 150 MG TABCR 300 MG PO (08:17)
[2022-05-31] MEDS: Finasteride 5 MG TAB PO (08:18)
[2022-05-31] MEDS: Metoprolol CR 25 MG TABCR 12.5 MG PO (08:18)
[2022-05-31] MEDS: Cetirizine 10 MG TAB PO (08:18)
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
--- NOTE | 2022-05-31 10:50 | NUR.NOTE ---
Nursing Note: Accessed chart to determine orders for EKG and to determine whether or not one needs to be cancelled.
[2022-05-31] MEDS: Cefpodoxime 200 MG TAB PO ×2 (11:09→21:32)
--- NOTE | 2022-05-31 11:19 | PTTR_ITS ---
PT Notes Visit Reasons: UTI/Urinary Retention/Weakness Inpatient Physical Therapy Treatment Note [facility] Date: 05/31/22 SUBJECTIVE: Segun states that he did not sleep much last night but is willing to do what he can today. OBJECTIVE: [] BED MOBILITY/TRANSFERS pt already in recliner. Sit-stand: CGA Stand-sit: CGA GAIT Assistive Device: FWW Weight bearing: full Assist: CGA Distance: approx 260' THEREX: standing ex including hip flex, abd, SSH and HR x 10 ea. Balance ex in modified tandem 2x15 sec each with occasional PLANETARIUM SKY SHOW TECHNICIAN. Stair negotiation: ascend/descend clinic steps 3x4 steps and 2x6 steps using bilateral rails and SBA. ASSESSMENT: tolerated session well. Pt felt unsteady with balance ex but did well. He was able to steady himself with light HH. PLAN: continue to progress following PT POC. TREATMENT CODE/TIME: 30 min [id number], [id number]
[2022-05-31] MEDS: Insulin Aspart 300 UNITS/3 ML PEN SC (11:56)
[2022-05-31] MEDS: Tamsulosin 0.4 MG CAPCR 0.8 MG PO (17:20)
[2022-05-31] MEDS: Rosuvastatin 10 MG TAB 40 MG PO (21:30)
[2022-05-31] MEDS: Magnesium Oxide 400 MG TAB PO (21:32)
[2022-06-01 03:09] VITALS: BP 123/79; PULSE 66; RESP 16; TEMP 36.9; O2SAT 96
[2022-06-01 06:25] VITALS: BP 145/75; PULSE 52; RESP 16; TEMP 36.9; O2SAT 96
[2022-06-01 08:30] VITALS: BP 151/88; PULSE 58; RESP 16; TEMP 35.9; O2SAT 96
[2022-06-01] MEDS: buPROPion-XL 150 MG TABCR 300 MG PO (08:43)
[2022-06-01] MEDS: Apixaban 5 MG TAB PO (08:43)
[2022-06-01] MEDS: amLODIPine 2.5 MG TAB PO (08:43)
[2022-06-01] MEDS: metFORMIN 500 MG TAB PO (08:44)
[2022-06-01] MEDS: Finasteride 5 MG TAB PO (08:44)
[2022-06-01] MEDS: Cetirizine 10 MG TAB PO (08:44)
[2022-06-01] MEDS: Insulin Glargine 300 UNITS/3 ML PEN 23 UNITS SC (08:45)
[2022-06-01] MEDS: Metoprolol CR 25 MG TABCR 12.5 MG PO (08:45)
[2022-06-01] MEDS: Insulin Aspart 300 UNITS/3 ML PEN SC ×2 (08:45→12:19)
[2022-06-01] MEDS: MAGNESIUM SULFATE 2 GM/50 ML BAG IVPB (10:30)
[2022-06-01] MEDS: Cefpodoxime 200 MG TAB PO (10:30)
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
--- NOTE | 2022-06-01 14:52 | NUR.NOTE ---
discussed discharge plan with Provider. Patient is not instructed to straight cath as patient is resistant to intermittent straight cathing for retention, after discharge. he is to follow up with urology in one week.
--- NOTE | 2022-06-01 16:19 | CMDISCH_ITS ---
- If Service Date Differs Date of service: 06/01/22 Time of Service: 16:19 LACE Index Scoring Tool - Questions: Length of Stay (in days): 2 Acuity (Admit via E.D.?): Yes Comorbidities: Diabetes w/o Complication, Congestive Heart Failure E.D. Visits: 1 - Answers: Total Score: 9 Risk of Readmission: Low Risk Care Management Discharge Reason for Hospitalization: UTI, Urinary Retention, Weakness Discharge Plan: Segun returned home to the care of his [facility] home provider, Margaux. Margaux was present for discharge instructions from his RN. Margaux drove him home via private vehicle. He will follow up with his PCP and discharge plan of care. Patient/Family Education Needs: Review discharge instructions and limitations, discussion of self care needs including ask me three and goals of care. Services Needed at Discharge: Home Health Care Services ( RN, PT)
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
== END 2022-06-01 15:35 | disposition home health service (06) | DRG 690 ==
LOC: ER 20:45 → MS 21:19
PROVIDERS: Nurse Practitioner Family; Admitting Provider Family Medicine; Emergency Provider Physician Assistant; PCP Student in an Organized Health Care Education/Training Program; Visit Provider Family Medicine
DX: N30.00 Acute cystitis without hematuria (principal); I48.92 Unspecified atrial flutter; I50.32 Chronic diastolic (congestive) heart failure; Z66 Do not resuscitate; R26.89 Other abnormalities of gait and mobility; F41.9 Anxiety disorder, unspecified; F32.A Depression, unspecified; E11.69 Type 2 diabetes mellitus with other specified complication; R53.1 Weakness; Z79.4 Long term (current) use of insulin; R33.9 Retention of urine, unspecified; I48.91 Unspecified atrial fibrillation; D45 Polycythemia vera; Z79.01 Long term (current) use of anticoagulants; Z51.5 Encounter for palliative care; E78.5 Hyperlipidemia, unspecified; Z87.820 Personal history of traumatic brain injury; E11.3599 Type 2 diabetes mellitus with proliferative diabetic retinopathy without macular edema, unspecified eye; E11.42 Type 2 diabetes mellitus with diabetic polyneuropathy; F50.89 Other specified eating disorder; Z68.22 Body mass index [BMI] 22.0-22.9, adult; I25.119 Atherosclerotic heart disease of native coronary artery with unspecified angina pectoris; Z95.5 Presence of coronary angioplasty implant and graft; I11.0 Hypertensive heart disease with heart failure; I25.2 Old myocardial infarction; C44.41 Basal cell carcinoma of skin of scalp and neck; F09 Unspecified mental disorder due to known physiological condition; N40.0 Benign prostatic hyperplasia without lower urinary tract symptoms
CPT/HCPCS: 36415; 51701; 76770; 80048; 80053; 82550; 82805; 83690; 87077; 87635; 93005; 96365; 97110; 97162; 97530; 99223; 99285; 71045; 81003; 81015; 83605; 83735; 84439; 84443; 84484; 85025; 87086; 87186; 93010; 99222; 99232; 99239; G0378; J0696

== ENCOUNTER → 2022-05-29 07:29 | Outpatient (BNVA) | payer MEDICARE, MEDICAID, SELFPAY | PROVIDERS: PCP Student in an Organized Health Care Education/Training Program; Referring Provider Student in an Organized Health Care Education/Training Program; Visit Provider Urology ==

== ENCOUNTER → 2022-06-16 10:52 | Outpatient (BNVA) | payer MEDICARE, MEDICAID, SELFPAY | PROVIDERS: PCP Student in an Organized Health Care Education/Training Program; Referring Provider Student in an Organized Health Care Education/Training Program; Visit Provider Urology | DX: Z09 Encounter for follow-up examination after completed treatment for conditions other than malignant neoplasm (principal); Z87.440 Personal history of urinary (tract) infections; K59.00 Constipation, unspecified | CPT/HCPCS: 51798; 99213 ==

== ENCOUNTER → 2023-01-01 13:31 | Outpatient (BNVA) | payer MEDICARE, MEDICAID, SELFPAY | PROVIDERS: PCP Student in an Organized Health Care Education/Training Program; Referring Provider Student in an Organized Health Care Education/Training Program; Visit Provider Urology | DX: R30.0 Dysuria (principal); R33.8 Other retention of urine | CPT/HCPCS: 51798; 99213 ==